=== PATIENT | female | born 1995 | race Caucasian/White ===

== ENCOUNTER 2019-09-02 17:36 | Emergency (ER) | payer BC ==
--- NOTE | 2019-09-02 18:19 | ER Document Report ---
HPI - HPI Patient complains to provider of: Dental pain Time Seen by Provider: 09/02/19 18:06 Onset: Last week Onset/Duration: Sudden, Persistent Quality of pain: Throbbing Severity: Severe Pain Level: 4 Context: This 24-year-old female presents emergency department with complaints of upper left-sided dental pain. Reports that she is from [place]. She had a root canal prior to her coming to [place] to visit. She reports that this past week she started hurting so she visited the dentist here. They placed her on amoxicillin and hydrocodone. She reports she still taking the amoxicillin but she is out of hydrocodone and hurting really bad. She reports she had 102 temperature today. Denies vomiting diarrhea. Associated Symptoms: None Exacerbated by: Denies Relieved by: Denies Similar symptoms previously: Yes Recently seen / treated by doctor: Yes - REPRODUCTIVE LMP: 08/28/19 Reproductive: DENIES: : Past Medical History - General Information source: Patient - Social History Smoking Status: Current Every Day Smoker Chew tobacco use (# tins/day): No Frequency of alcohol use: None Drug Abuse: None Family History: None Patient has suicidal ideation: No Patient has homicidal ideation: No - Past Medical History Cardiac Medical History: Reports: Other - Small vessel disease, tachycardia Surgical Hx: Negative Vertical Provider Document - CONSTITUTIONAL Agree With Documented VS: Yes Exam Limitations: No Limitations General Appearance: WD/WN, No Apparent Distress - INFECTION CONTROL TRAVEL OUTSIDE OF THE U.S. IN LAST 30 DAYS: No - HEENT HEENT: Atraumatic, Normocephalic Mouth Diagram: 1 - Patient complains of pain opens mouth wide good airway no erythema no swelling no pustule - NECK Neck: Supple. negative: Lymphadenopathy-Left, Lymphadenopathy-Right - RESPIRATORY Respiratory: No Respiratory Distress - CARDIOVASCULAR Cardiovascular: Regular Rate - MUSCULOSKELETAL/EXTREMETIES Musculoskeletal/Extremeties: VIANCA GORE - NEURO Level of Consciousness: Awake, Alert, Appropriate Motor/Sensory: No Motor Deficit - DERM Integumentary: Warm, Dry Course - Re-evaluation Re-evalutation: 09/02/19 19:22 24-year-old female presents emergency department with complaints of left upper dental pain. Reports she is visiting from [place]. Reports she had a root canal prior to leaving her again and started hurting here. She was seen by a dentist here in town on Wednesday he treated with amoxicillin and put her on Brandon. She reports she is still having pain. She is taken the Brandon and Tylenol on top of that. Reports she had fever earlier today. Labs unremarkable. Patient was instructed on positive nitrite. Patient was also instructed to stop taking amoxicillin start taking clindamycin. She was prescribed [place] dispense pack. She was also instructed to follow-up with the dentist on Wednesday. She verbalized understanding to all instructions. 09/02/19 18:30 09/02/19 18:30 MCV 91 fl (80-97) 09/02/19 18:30 MCH 30.6 pg (27.0-33.4) 09/02/19 18:30 MCHC 33.6 g/dL (32.0-36.0) 09/02/19 18:30 RDW 12.5 % (11.5-14.0) 09/02/19 18:30 Seg Neutrophils % 57.4 % (42-78) 09/02/19 18:30 Chloride 101 mmol/L (98-107) 09/02/19 18:30 Carbon Dioxide 30 mmol/L (22-30) 09/02/19 18:30 Anion Gap 13 (5-19) 09/02/19 18:30 Est GFR ( Amer) > 60 (>60) 09/02/19 18:30 Glucose 85 mg/dL (75-110) 09/02/19 18:30 Calcium 9.9 mg/dL (8.4-10.2) 09/02/19 18:30 Total Bilirubin 0.3 mg/dL (0.2-1.3) 09/02/19 18:30 AST 25 U/L (14-36) 09/02/19 18:30 Alkaline Phosphatase 66 U/L (38-126) 09/02/19 18:30 Total Protein 8.2 g/dL (6.3-8.2) 09/02/19 18:30 Albumin 4.8 g/dL (3.5-5.0) 09/02/19 18:30 Urine Color YELLOW 09/02/19 18:30 Urine Appearance TURBID 09/02/19 18:30 Urine pH 8.0 (5.0-9.0) 09/02/19 18:30 Ur Specific [place] 1.013 09/02/19 18:30 Urine Protein NEGATIVE mg/dL (NEGATIVE) 09/02/19 18:30 Urine Glucose (UA) NEGATIVE mg/dL (NEGATIVE) 09/02/19 18:30 Urine Ketones NEGATIVE mg/dL (NEGATIVE) 09/02/19 18:30 Urine Blood NEGATIVE (NEGATIVE) 09/02/19 18:30 Urine Nitrite POSITIVE (NEGATIVE) H 09/02/19 18:30 Ur Leukocyte Esterase NEGATIVE (NEGATIVE) 09/02/19 18:30 Urine WBC (Auto) 5 /HPF 09/02/19 18:30 - Laboratory Result Diagrams: 09/02/19 18:30 09/02/19 18:30 Discharge - Discharge Clinical Impression: Pain, dental Condition: Stable Disposition: HOME, SELF-CARE Instructions: Clindamycin ([facility]), Oral Narcotic Medication ([facility]), Toothache ([facility]) Additional Instructions: *You have been evaluated for dental pain *Take medications as prescribed *Follow up with the dentist Wednesday *Return to ED for worsening condition, changes, needs Prescriptions: Clindamycin HCl [Cleocin 300 mg Capsule] 300 mg PO BID #14 capsule
[2019-09-02 18:43] LABS: ABSOLUTE BASOPHILS # (AUTO) 0.1 10^3/uL (0.0-0.2); ABSOLUTE EOSINOPHILS # (AUTO) 0.2 10^3/uL (0.0-0.6); ABSOLUTE LYMPHOCYTES (AUTO) 2.6 10^3/uL (0.5-4.7); ABSOLUTE MONOCYTES (AUTO) 0.6 10^3/uL (0.1-1.4); ABSOLUTE NEUT (AUTO) 4.7 10^3/uL (1.7-8.2); BASOPHILS % (AUTO) 1.1 % (0-2); EOSINOPHILS % (AUTO) 2.6 % (0-6); HEMATOCRIT 43.8 % (36.0-47.0); HEMOGLOBIN 14.7 g/dL (12.0-15.5); LYMPHOCYTES % (AUTO) 31.6 % (13-45); MEAN CORPUSCULAR HEMOGLOBIN 30.6 pg (27.0-33.4); MEAN CORPUSCULAR HGB CONC 33.6 g/dL (32.0-36.0); MEAN CORPUSCULAR VOLUME 91 fl (80-97); MONOCYTES % (AUTO) 7.3 % (3-13); PLATELET COUNT 375 10^3/uL (150-450); RED BLOOD COUNT 4.81 10^6/uL (3.72-5.28); RED CELL DISTRIBUTION WIDTH 12.5 % (11.5-14.0); SEGMENTED NEUTROPHILS % (AUTO) 57.4 % (42-78); TOTAL CELLS COUNTED % (AUTO) 100 %; WHITE BLOOD COUNT 8.2 10^3/uL (4.0-10.5)
[2019-09-02 18:47] LABS: AMORPHOUS SEDIMENT,URINE 1+ /HPF; APPEARANCE,URINE TURBID; BILIRUBIN,URINE NEGATIVE (NEGATIVE); COLOR,URINE YELLOW; GLUCOSE, URINE NEGATIVE (NEGATIVE); KETONES,URINE NEGATIVE (NEGATIVE); LEUKOCYTE ESTERASE,URINE NEGATIVE (NEGATIVE); NITRITE,URINE POSITIVE (NEGATIVE); PROTEIN,URINE NEGATIVE (NEGATIVE); URINE SPECIFIC GRAVITY 1.013; UROBILINOGEN,URINE NEGATIVE mg/dL (<2.0)
[2019-09-02 19:05] LABS: ALBUMIN 4.8 g/dL (3.5-5.0); ALKALINE PHOSPHATASE 66 U/L (38-126); ANION GAP 13 (5-19); ASPARTATE AMINO TRANSFERASE 25 U/L (14-36); BILIRUBIN,DIRECT 0.2 mg/dL (0.0-0.4); BILIRUBIN,TOTAL 0.3 mg/dL (0.2-1.3); BLOOD UREA NITROGEN 14 mg/dL (7-20); CALCIUM 9.9 mg/dL (8.4-10.2); CARBON DIOXIDE 30 mmol/L (22-30); CHLORIDE 101 mmol/L (98-107); GLUCOSE 85 mg/dL (75-110); POTASSIUM 4.4 mmol/L (3.6-5.0); TOTAL PROTEIN 8.2 g/dL (6.3-8.2)
[2019-09-02] MEDS ORDERED: HYDROCODONE/ACETAMINOPHEN 5-325 MG (6 TAB/ER DISP) PO PRN (19:10)
[2019-09-02 19:42] VITALS: BP 138/72
== END 2019-09-02 19:43 | disposition home or self-care (01) ==
LOC: ER 17:36
DX: K08.89 Other specified disorders of teeth and supporting structures (principal); F17.200 Nicotine dependence, unspecified, uncomplicated; Z98.890 Other specified postprocedural states
CPT/HCPCS: 36415; 80053; 81001; 81025; 85025; 99282

== ENCOUNTER 2019-09-29 12:56 | Emergency (ER) | payer BC ==
[2019-09-29 13:01] VITALS: BP 127/72
[2019-09-29] MEDS ORDERED: LIDOCAINE 2% VISCOUS SOLN 15 ML UDCUP PO ONE (13:06)
--- NOTE | 2019-09-29 13:07 | ER Document Report ---
HPI - HPI Notes: Patient is a 24-year-old female presents complaining of left upper dental pain tooth #14 approximately and was told that there may be a fracture in the root area causing her pain by the dentist today. Patient states that the dentist told her to come here for some pain medicine to get her to Wednesday because she is going to be seeing an oral surgeon at that time. She is able to eat and drink, but has pain with doing so. She has not noticed any swelling or abscess. Denies any headache, fever, head injury, neck pain, URI, sore throat, chest pain, palpitations, syncope, cough, shortness of breath, wheeze, dyspnea, abdominal pain, nausea/vomiting/diarrhea, urinary retention, dysuria, hematuria, or rash. - ROS Systems Reviewed and Negative: Yes All other systems reviewed and negative - REPRODUCTIVE Reproductive: DENIES: : Past Medical History - Social History Smoking Status: Unknown if Ever Smoked Family History: None Vertical Provider Document - CONSTITUTIONAL Agree With Documented VS: Yes Notes: PHYSICAL EXAMINATION: GENERAL: Well-appearing, well-nourished and in no acute distress. HEAD: Atraumatic, normocephalic. EYES: Pupils equal round and reactive to light, extraocular movements intact, sclera anicteric, conjunctiva are normal. ENT: Nares patent and without discharge. oropharynx clear without exudates. No tonsilar hypertrophy or erythema. Moist mucous membranes. No sinus tenderness. Uvula midline. No palatine shift. No tongue protrusion. No respiratory compromise. Mouth: No obvious abscess or discharge noted. No facial swelling. + tenderness to tooth #14. NECK: Normal range of motion, supple without lymphadenopathy. No rigidity/meningismus. LUNGS: Breath sounds clear to auscultation bilaterally and equal. No wheezes rales or rhonchi. HEART: Regular rate and rhythm without murmurs, rubs, gallops. NEUROLOGICAL: Cranial nerves grossly intact. Normal speech, normal gait. Normal sensory, motor exams PSYCH: Normal mood, normal affect. SKIN: Warm, Dry, normal turgor, no rashes or lesions noted. - INFECTION CONTROL TRAVEL OUTSIDE OF THE U.S. IN LAST 30 DAYS: No Course - Re-evaluation Re-evalutation: 09/29/19 13:21 Patient is an afebrile, well-hydrated, 24-year-old female who presents to the ED with dental pain, suspect nerve root etiology versus infection. Vitals are acceptable. PE is otherwise unremarkable. No I&D, labs, or imaging warranted at this time based on H&P. Viscous lidocaine dispensed today. I will send her home with a prescription for penicillin. Low suspicion for any meningitis, sepsis, peritonsillar/pharyngeal abscess, respiratory compromise, Saeed's, temporal arteritis, or other emergent systemic condition at this time. Patient is aware this condition can change from initial presentation and he needs to monitor symptoms closely. Patient was bleeding for something for pain. I reviewed with patient that we do not treat chronic pain, but in light that she does have an appointment with an oral surgeon on Wednesday I will give her a [place] dispense pack. I thoroughly reviewed with the patient that this will be the l ast prescription given for her pain more specifically by myself, but preferably by the ED if she were to come back here for more pain medicine. I cannot make that decision for other providers, but reiterated that we will not be treating or giving out any more pain medicine for this specific issue as she is under the care of a dentist and now oral surgeon. Conservative measures otherwise for symptoms. Call to schedule an appointment with a dentist for further evaluation and management. Recheck with your PCM this week as well. Return to the ED with any worsening/concerning symptoms otherwise as reviewed in discharge. Patient is in agreement. - Vital Signs Vital signs: Temp Pulse Resp BP Pulse Ox 98.0 F 102 H 18 127/72 H 100 09/29/19 13:09/29/19 13:09/29/19 13:09/29/19 13:09/29/19 13:00 Discharge - Discharge Clinical Impression: Pain, dental Condition: Stable Disposition: HOME, SELF-CARE Instructions: Toothache ([facility]) Additional Instructions: [place] and floss twice daily Maintain fluid intake Take antibiotics as directed Mouthwash, salt water gargles, peroxide rinse as needed Tylenol/ibuprofen as needed Recheck with PCM this week Call today/tomorrow and schedule an appointment with your dentist for further evaluation Return to the ED with any worsening symptoms and/or development of fever, headache, facial swelling, swelling of lips/tongue/throat, trouble swallowing, drooling, hoarseness, neck pain/stiffness, chest pain, palpitations, syncope, shortness of breath, trouble breathing, abdominal pain, n/v/d, numbness /tingling, or other worsening symptoms that are concerning to you. Prescriptions: Penicillin V Potassium [Penicillin Vk 250 mg Tablet] 500 mg PO BID #40 tablet Forms: Elevated Blood Pressure Referrals: [facility] [Provider Group] - Follow up as needed
[2019-09-29] MEDS ORDERED: HYDROCODONE/ACETAMINOPHEN 5-325 MG (6 TAB/ER DISP) PO PRN (13:20)
== END 2019-09-29 14:25 | disposition home or self-care (01) ==
LOC: ER 12:56
DX: K08.89 Other specified disorders of teeth and supporting structures (principal)
CPT/HCPCS: 99282; J3490

== ENCOUNTER 2019-10-07 11:28 | Emergency (ER) | payer BC ==
--- NOTE | 2019-10-07 11:35 | ER Document Report ---
ED Medical Screen (RME) - General Chief Complaint: Flank Pain Stated Complaint: RIGHT SIDE FLANK PAIN Time Seen by Provider: 10/07/19 11:31 TRAVEL OUTSIDE OF THE U.S. IN LAST 30 DAYS: No - HPI Notes: 10/07/19 11:35 Patient is a 24-year-old female with a history of PID and ovarian cyst who presents complaining of right lower pelvic pain and scant vaginal discharge that is been present for the past several days. Patient states that this pain feels like it did when she had PID and ovarian cyst in the past. No other vaginal bleeding. No fever. I have treated and performed a rapid initial assessment of this patient. A comprehensive ED assessment and evaluation of the patient, analysis of test results and completion of medical decision making process will be conducted by additional ED providers. PHYSICAL EXAMINATION: GENERAL: Well-appearing, well-nourished and in no acute distress. A&Ox4. Answers questions appropriately. Abdomen: Limited exam in triage, but tenderness noted to right lower pelvic area. - Related Data Allergies/Adverse Reactions: codeine Allergy (Verified 09/29/19 13:08) morphine Allergy (Verified 09/29/19 13:08) tramadol Allergy (Verified 09/29/19 13:08) ibuprofen Adverse Reaction (Verified 09/29/19 13:08) Physical Exam - Vital signs Vitals: Temp Pulse Resp BP Pulse Ox 97.5 F 88 20 120/57 L 100 10/07/19 11:31 10/07/19 11:31 10/07/19 11:31 10/07/19 11:31 10/07/19 11:31 Course - Vital Signs Vital signs: Temp Pulse Resp BP Pulse Ox 97.5 F 88 20 120/57 L 100 10/07/19 11:31 10/07/19 11:31 10/07/19 11:31 10/07/19 11:31 10/07/19 11:31
[2019-10-07] MEDS ORDERED: ACETAMINOPHEN 325 MG TABLET PO ONE (11:36)
[2019-10-07] MEDS ORDERED: ONDANSETRON HCL INJ/PF 4 MG/2 ML SDV IV ONE ×2 (12:31→13:48)
--- NOTE | 2019-10-07 12:31 | ER Document Report ---
ED GI/ - General Chief Complaint: Abdominal Pain Stated Complaint: RIGHT SIDE FLANK PAIN Time Seen by Provider: 10/07/19 11:31 Notes: CHIEF COMPLAINT: Right lower quadrant pain over the last 3 days HPI: 24-year-old female with history of PID, ovarian cyst presenting to the emergency department complaining of an intermittent intensity but fairly constant discomfort in the right lower quadrant right pelvis region over the last 3 days progressively worsening. No fever. Slight nausea no vomiting. Patient states it does feel slightly similar to prior ovarian cysts. Now hurts to bend at the waist, hurts to walk. Denies vaginal bleeding, has had slight vaginal discharge. Patient states that she has been worked up as recently as 6 months ago and did not have any STDs. ROS: See HPI - all other systems were reviewed and are otherwise negative Constitutional: no fever or recent illness Eyes: no drainage, no blurred vision ENT: no runny nose, no sore throat Cardiovascular: no chest pain Resp: no SOB, no cough GI: no vomiting, no diarrhea, + nausea, + abdominal pain : no dysuria, + vaginal discharge Integumentary: no rash Allergy: no hives Musculoskeletal: no extremity pain or swelling Neurological: no numbness/tingling, no weakness MEDICATIONS: I agree with the patient medications as charted by the RN. ALLERGIES: I agree with the allergies as charted by the RN. PAST MEDICAL HISTORY/PAST SURGICAL HISTORY: Reviewed and agree as charted by RN. SOCIAL HISTORY: Reviewed and agree as charted by RN. FAMILY HISTORY: No significant familial comorbid conditions directly related to patient complaint EXAM: Reviewed vital signs as charted by RN. CONSTITUTIONAL: Alert and oriented and responds appropriately to questions. Well-appearing; well-nourished, mild distress secondary to discomfort HEAD: Normocephalic; atraumatic EYES: PERRL; Conjunctivae clear, sclerae non-icteric ENT: normal nose; no rhinorrhea; moist mucous membranes; pharynx without lesions noted NECK: Supple without meningismus; non-tender; no cervical lymphadenopathy, no masses CARD: RRR; no murmurs, no clicks, no rubs, no gallops; symmetric distal pulses RESP: Normal chest excursion without splinting or tachypnea; breath sounds clear and equal bilaterally; no wheezes, no rhonchi, no rales, ABD/GI: Normal bowel sounds; non-distended; soft, moderate tenderness in the right lower quadrant on palpation, positive Rovsing, no rebound, no guarding; no palpable organomegaly or masses : 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 External genitalia normal. No skin lesions noted. Pelvic Exam: No active bleeding. No purulent discharge. Cervix appears normal. + CMT. No lesions or masses. Uterus normal size and mildly tender. Right/Left adnexa normal size and moderately tender on the right. BACK: The back appears normal and is non-tender to palpation, there is no CVA tenderness EXT: Normal ROM in all joints; non-tender to palpation; no cyanosis, no e ffusions, no edema SKIN: Normal color for age and race; warm; dry; good turgor; no acute lesions noted NEURO: Moves all extremities equally; Motor and sensory function intact PSYCH: The patient's mood and manner are appropriate. Grooming and personal hygiene are appropriate. MDM: 24-year-old female with history of PID and ovarian cyst presenting for right lower quadrant pain constant over the last 3 days with varying intensity. She is moderately tender in the right lower quadrant on exam. Patient still has her appendix. Ultrasound has already been performed via triage protocols. Will evaluate for cyst or torsion. Will perform pelvic exam, screening labs pending. Differential would still include appendicitis of ultrasound does not show a definitive cause for her pain TRAVEL OUTSIDE OF THE U.S. IN LAST 30 DAYS: No - Related Data Allergies/Adverse Reactions: codeine Allergy (Verified 09/29/19 13:08) morphine Allergy (Verified 09/29/19 13:08) tramadol Allergy (Verified 09/29/19 13:08) ibuprofen Adverse Reaction (Verified 09/29/19 13:08) Past Medical History - Social History Smoking Status: Current Every Day Smoker Chew tobacco use (# tins/day): No Frequency of alcohol use: Occasional Drug Abuse: None Family History: None Patient has suicidal ideation: No Patient has homicidal ideation: No Past Surgical History: Reports: Hx Cholecystectomy, Hx Tonsillectomy - Adenoid removal Physical Exam - Vital signs Vitals: Temp Pulse Resp BP Pulse Ox 97.5 F 88 20 120/57 L 100 10/07/19 11:31 10/07/19 11:31 10/07/19 11:31 10/07/19 11:31 10/07/19 11:31 Course - Re-evaluation Re-evalutation: 10/07/19 16:29 I discussed evaluation results at length with the patient. Her lab work does not show acute emergent abnormalities other than a mild leukocytosis of 12.3. Urine did not show evidence of infection. Her ultrasound showed trace free fluid in the pelvis question a ruptured ovarian cyst. Patient had blood flow to the right ovary on ultrasound. Her CT imaging showed a normal appendix no other acute abnormalities. I discussed all of this with the patient at length. She has a history of similar types of pain in the past with cysts and PID presentation. We discussed possibility of PID, the need for her to have close [facility]OOK[facility]EE[facility] follow-up. We discussed torsion at length. Patient's pain is been fairly constant and not wavering while in the emergency department, if patient has worsening uncontrolled pain or vomiting at home she will return for reassessment. At this time it is less likely that patient has torsion given that she has blood flow to the ovary but patient is aware that if her discomfort worsens this could always be a possibility if it is intermittent in nature. She states she cannot take Tylenol products and is specifically asking for oxycodone without Tylenol 10/07/19 16:33 - Vital Signs Vital signs: Temp Pulse Resp BP Pulse Ox 97.5 F 88 20 120/57 L 100 10/07/19 11:31 10/07/19 11:31 10/07/19 11:31 10/07/19 11:31 10/07/19 11:31 - Laboratory Result Diagrams: 10/07/19 12:43 10/07/19 12:43 Laboratory results interpreted by me: 10/07/19 10/07/19 10/07/19 12:43 12:43 13:25 WBC 12.3 H Total Protein 8.3 H Urine Protein 30 H Urine Urobilinogen 2.0 H Leukocyte Esterase Rfl TRACE H Discharge - Discharge Clinical Impression: Abdominal pain, RLQ (right lower quadrant), PID (acute pelvic inflammatory disease) Condition: Stable Disposition: HOME, SELF-CARE Additional Instructions: Take the medications as prescribed, no driving if taking narcotics for pain. It is very important that you follow-up with S[facility] BOOKKEEPER for further management of this issue. Call on Wednesday to obtain appointment. If you have significant worsening or uncontrolled pain return to the emergency department for reevaluation as discussed Prescriptions: Doxycycline Hyclate 100 mg PO BID #28 capsule Metronidazole [Flagyl 500 mg Tablet] 500 mg PO BID #28 tablet Oxycodone HCl [Oxycontin Ir 5 Mg Tablet] 1 tab PO Q4H PRN #15 tablet PRN Reason: For Pain Ondansetron [Zofran Odt 4 mg Tablet] 1 - 2 tab PO Q4H PRN #15 tab.rapdis PRN Reason: For Nausea/Vomiting Referrals: DAVID GOINS MD [ACTIVE PROVISIONAL STAFF] - Follow up as needed
[2019-10-07] MEDS ORDERED: FENTANYL CITRATE INJ/PF 100 MCG/2 ML AMPUL IV ONE ×2 (12:32→15:04)
--- NOTE | 2019-10-07 12:44 | RADIOLOGY REPORT (SQ) ---
EXAM DESCRIPTION: U/S NON OB PEL TV W/DOPPLER COMPLETED DATE/TIME: 10/07/2019 12:19 pm REASON FOR STUDY: Rt pelvic pain COMPARISON: None. TECHNIQUE: Dynamic and static grayscale images acquired of the pelvis via transvaginal approach and recorded on PACS. Additional selected color Doppler and spectral images recorded. LIMITATIONS: None. FINDINGS: UTERUS: The uterus measures 9.3 x 4.7 x 5.7 cm. No focal myometrial mass was seen. ENDOMETRIAL STRIPE: The endometrium measures 1.6 cm in double wall thickness. There is a 4 mm hypoec hoic area at the endometrium. CERVIX: The cervix measures 3.4 cm in length. Trace amount of fluid is noted at the endocervical can al. RIGHT OVARY AND DOPPLER: The right ovary measures 4.2 x 1.5 x 1.6 cm. Small follicles are noted. Fl ow by Doppler was shown to the right ovary. LEFT OVARY AND DOPPLER: The left ovary measures 4.5 x 1.2 x 1.4 cm. Small follicles are noted. Flow by Doppler was shown to the left ovary. FREE FLUID: There is a small amount of free pelvic fluid. IMPRESSION: Thickened endometrium. 4 mm hypoechoic area at the endometrium, may represent a small c yst or fluid collection, please correlate with serum beta HCG to exclude an early gestational sac. T race amount of fluid at the endocervical canal. Small amount of free pelvic fluid. TECHNICAL DOCUMENTATION: JOB ID: [id number] OH-[id number] 2010 [employer]- All Rights Reserved Rev-02/04 Reading location - IP/workstation name: [email or web address]
[2019-10-07 13:05] LABS: ABSOLUTE LYMPHOCYTES (AUTO) 3.2 10^3/uL (0.5-4.7); ABSOLUTE NEUT (AUTO) 8.1 10^3/uL (1.7-8.2); BASOPHILS % (AUTO) 0.2 % (0-2); EOSINOPHILS % (AUTO) 0.3 % (0-6); HEMATOCRIT 46.4 % (36.0-47.0); HEMOGLOBIN 15.5 g/dL (12.0-15.5); LYMPHOCYTES % (AUTO) 25.8 % (13-45); MEAN CORPUSCULAR HEMOGLOBIN 30.6 pg (27.0-33.4); MEAN CORPUSCULAR HGB CONC 33.4 g/dL (32.0-36.0); MEAN CORPUSCULAR VOLUME 92 fl (80-97); MONOCYTES % (AUTO) 8.3 % (3-13); PLATELET COUNT 282 10^3/uL (150-450); RED BLOOD COUNT 5.06 10^6/uL (3.72-5.28); RED CELL DISTRIBUTION WIDTH 12.6 % (11.5-14.0); SEGMENTED NEUTROPHILS % (AUTO) 65.4 % (42-78); TOTAL CELLS COUNTED % (AUTO) 100 %; WHITE BLOOD COUNT 12.3 10^3/uL (4.0-10.5)
[2019-10-07 13:18] LABS: ALBUMIN 4.8 g/dL (3.5-5.0); ALKALINE PHOSPHATASE 69 U/L (38-126); ANION GAP 9 (5-19); ASPARTATE AMINO TRANSFERASE 16 U/L (14-36); BILIRUBIN,DIRECT 0.2 mg/dL (0.0-0.4); BILIRUBIN,TOTAL 0.5 mg/dL (0.2-1.3); BLOOD UREA NITROGEN 12 mg/dL (7-20); CALCIUM 10.1 mg/dL (8.4-10.2); CARBON DIOXIDE 28 mmol/L (22-30); CHLORIDE 103 mmol/L (98-107); GLUCOSE 78 mg/dL (75-110); POTASSIUM 3.7 mmol/L (3.6-5.0); TOTAL PROTEIN 8.3 g/dL (6.3-8.2)
[2019-10-07 13:39] LABS: RBCS (WET MOUNT) RARE RBCS SEEN; T.VAGINALIS (WET MOUNT) NO TRICHOMONAS SEEN; WBCS (WET MOUNT) RARE WBCS SEEN; YEAST (WET MOUNT) NO YEAST SEEN
[2019-10-07 14:01] LABS: AMORPHOUS SEDIMENT,URINE TRACE /HPF; APPEARANCE,URINE CLOUDY; BILIRUBIN,URINE NEGATIVE (NEGATIVE); COLOR,URINE AMBER; GLUCOSE, URINE NEGATIVE (NEGATIVE); KETONES,URINE NEGATIVE (NEGATIVE); PROTEIN,URINE 30 mg/dL (NEGATIVE); URINE SPECIFIC GRAVITY 1.026
[2019-10-07 15:05] LABS: CHLAM PCR NOT DETECTED (NOT DETECT)
--- NOTE | 2019-10-07 16:05 | RADIOLOGY REPORT (SQ) ---
EXAM DESCRIPTION: CT ABD/PELVIS WITH IV ORAL COMPLETED DATE/TIME: 10/07/2019 3:32 pm REASON FOR STUDY: RLQ pain eval for appy COMPARISON: None. TECHNIQUE: CT scan of the abdomen and pelvis performed with intravenous and oral contrast using phoebe donna scanning technique with dynamic intravenous contrast injection. Images reviewed with lung, soft t issue, and bone windows. Reconstructed coronal and sagittal MPR images reviewed. Delayed images for e valuation of the urinary system also acquired. All images stored on PACS. All CT scanners at this facility use dose modulation, iterative reconstruction, and/or weight based d osing when appropriate to reduce radiation dose to as low as reasonably achievable (ALARA). [facility]: Dose Right [facility]: CareDose [facility]: Dose Right [facility]: Teradose 4D [facility]: [facility] CONTRAST TYPE AND DOSE: contrast/concentration: Isovue 350.00 mg/ml; Total Contrast Delivered: 66.0 ml; Total Saline Delivered: 65.0 ml RENAL FUNCTION: GFR > 60. RADIATION DOSE: CT Rad equipment meets quality standard of care and radiation dose reduction techniq ues were employed. CTDIvol: 5.1 - 5.8 mGy. DLP: 619 mGy-cm. . LIMITATIONS: None. FINDINGS: LOWER CHEST: No significant findings. No nodules or infiltrates. LIVER: Normal size. No masses. No dilated ducts. SPLEEN: Normal size. No focal lesions. PANCREAS: No masses. No significant calcifications. No adjacent inflammation or peripancreatic fluid collections. Pancreatic duct not dilated. GALLBLADDER: Surgically absent. ADRENAL GLANDS: No significant masses or asymmetry. RIGHT KIDNEY AND URETER: No solid masses. No significant calcifications. No hydronephrosis or hyd roureter. LEFT KIDNEY AND URETER: No solid masses. No significant calcifications. No hydronephrosis or hydr oureter. AORTA AND VESSELS: No aneurysm. No dissection. Renal arteries, SMA, celiac without stenosis. RETROPERITONEUM: No retroperitoneal adenopathy, hemorrhage or masses. BOWEL AND PERITONEAL CAVITY: No obstruction. No visualized masses. No free fluid. No inflammatory ch anges or thickening of bowel wall. APPENDIX: Normal. PELVIS: No significant masses. Normal bladder. No free fluid. ABDOMINAL WALL: No masses. No hernias. BONES: No significant or acute findings. OTHER: No other significant finding. IMPRESSION: NO SIGNIFICANT OR ACUTE FINDINGS IN THE ABDOMEN OR PELVIS. TECHNICAL DOCUMENTATION: JOB ID: [id number] Quality ID # [id number]: Final reports with documentation of one or more dose reduction techniques (e.g., Au tomated exposure control, adjustment of the mA and/or kV according to patient size, use of iterative reconstruction technique) 2010 [employer]- All Rights Reserved Reading location - IP/workstation name: [email or web address]
[2019-10-07 16:55] VITALS: BP 110/66
== END 2019-10-07 16:56 | disposition home or self-care (01) ==
LOC: ER 11:28
DX: N73.0 Acute parametritis and pelvic cellulitis (principal); R10.31 Right lower quadrant pain; R11.0 Nausea; F17.200 Nicotine dependence, unspecified, uncomplicated; Z88.6 Allergy status to analgesic agent; Z90.49 Acquired absence of other specified parts of digestive tract
CPT/HCPCS: 96376; 99284; 96374; 96375; 36415; 87086; 87210; 85025; 81025; 87088; 80053; 81001; 87186; 87491; 87591; 76830; 93976; 74177; J3010; J2405

== ENCOUNTER 2019-10-09 12:36 | Emergency (ER) | payer BC ==
--- NOTE | 2019-10-09 13:13 | ER Document Report ---
ED Medical Screen (RME) - General Chief Complaint: Abdominal Pain Stated Complaint: ABDOMINAL PAIN/NAUSEA/VOMITING Time Seen by Provider: 10/09/19 13:10 TRAVEL OUTSIDE OF THE [place] IN LAST 30 DAYS: No - HPI Notes: 10/09/19 13:12 Patient is a 24-year-old female who returns after being evaluated couple days ago complaining of pain to the same area, but not able to keep anything down that she is having nausea and vomiting. Patient feels dehydrated. She had an unremarkable work-up at her last visit including CT scan and ultrasound as well as labs. No fever. I have treated and performed a rapid initial assessment of this patient. A comprehensive ED assessment and evaluation of the patient, analysis of test results and completion of medical decision making process will be conducted by additional ED providers. PHYSICAL EXAMINATION: GENERAL: Well-appearing, well-nourished and in no acute distress. A&Ox4. Answers questions appropriately. - Related Data Allergies/Adverse Reactions: codeine Allergy (Verified 09/29/19 13:08) morphine Allergy (Verified 09/29/19 13:08) tramadol Allergy (Verified 09/29/19 13:08) ibuprofen Adverse Reaction (Verified 09/29/19 13:08) Past Medical History Past Surgical History: Reports: Hx Cholecystectomy, Hx Tonsillectomy - Adenoid removal Physical Exam - Vital signs Vitals: Temp Pulse Resp BP Pulse Ox 98.0 F 141 H 18 119/71 99 10/09/19 12:40 10/09/19 12:40 10/09/19 12:40 10/09/19 12:40 10/09/19 12:40 Course - Vital Signs Vital signs: Temp Pulse Resp BP Pulse Ox 98.0 F 141 H 18 119/71 99 10/09/19 12:40 10/09/19 12:40 10/09/19 12:40 10/09/19 12:40 10/09/19 12:40
[2019-10-09] MEDS ORDERED: ONDANSETRON HCL INJ/PF 4 MG/2 ML SDV IV ONE ×3 (13:14→17:17)
[2019-10-09] MEDS ORDERED: ACETAMINOPHEN 325 MG TABLET PO ONE (13:15)
[2019-10-09 13:42] LABS: APPEARANCE,URINE CLOUDY; BILIRUBIN,URINE NEGATIVE (NEGATIVE); COLOR,URINE AMBER; GLUCOSE, URINE NEGATIVE (NEGATIVE); KETONES,URINE TRACE mg/dL (NEGATIVE); PROTEIN,URINE 30 mg/dL (NEGATIVE); URINE SPECIFIC GRAVITY 1.026
[2019-10-09] MEDS ORDERED: HYDROMORPHONE HCL INJ/PF 2 MG/ML AMPULE IV ONE ×3 (14:46→20:18)
[2019-10-09 14:58] LABS: ABSOLUTE BASOPHILS # (AUTO) 0.1 10^3/uL (0.0-0.2); ABSOLUTE EOSINOPHILS # (AUTO) 0.1 10^3/uL (0.0-0.6); ABSOLUTE LYMPHOCYTES (AUTO) 4.2 10^3/uL (0.5-4.7); ABSOLUTE MONOCYTES (AUTO) 2.1 10^3/uL (0.1-1.4); ABSOLUTE NEUT (AUTO) 10.4 10^3/uL (1.7-8.2); BASOPHILS % (AUTO) 0.8 % (0-2); EOSINOPHILS % (AUTO) 0.6 % (0-6); HEMATOCRIT 45.7 % (36.0-47.0); HEMOGLOBIN 15.9 g/dL (12.0-15.5); LYMPHOCYTES % (AUTO) 24.8 % (13-45); MEAN CORPUSCULAR HEMOGLOBIN 31.3 pg (27.0-33.4); MEAN CORPUSCULAR HGB CONC 34.8 g/dL (32.0-36.0); MEAN CORPUSCULAR VOLUME 90 fl (80-97); MONOCYTES % (AUTO) 12.2 % (3-13); RED BLOOD COUNT 5.09 10^6/uL (3.72-5.28); RED CELL DISTRIBUTION WIDTH 12.6 % (11.5-14.0); SEGMENTED NEUTROPHILS % (AUTO) 61.6 % (42-78); TOTAL CELLS COUNTED % (AUTO) 100 %
[2019-10-09] MEDS: NORMAL SALINE 1000 ML 1,000 ML IV PRN ×2 (15:01→16:34)
[2019-10-09 15:34] LABS: PLATELET COUNT 275 10^3/uL (150-450)
[2019-10-09 16:14] LABS: ALBUMIN 3.6 g/dL (3.5-5.0); ALKALINE PHOSPHATASE 51 U/L (38-126); ANION GAP 6 (5-19); ASPARTATE AMINO TRANSFERASE 13 U/L (14-36); BILIRUBIN,TOTAL 0.4 mg/dL (0.2-1.3); BLOOD UREA NITROGEN 13 mg/dL (7-20); CALCIUM 8.6 mg/dL (8.4-10.2); CARBON DIOXIDE 28 mmol/L (22-30); CHLORIDE 105 mmol/L (98-107); GLUCOSE 76 mg/dL (75-110); POTASSIUM 3.2 mmol/L (3.6-5.0); TOTAL PROTEIN 6.2 g/dL (6.3-8.2)
--- NOTE | 2019-10-09 19:41 | RADIOLOGY REPORT (SQ) ---
EXAM DESCRIPTION: CT ABD/PELVIS WITH IV ORAL COMPLETED DATE/TIME: 10/09/2019 7:23 pm REASON FOR STUDY: right lower quadrant pain COMPARISON: 10/07/2019 TECHNIQUE: CT scan of the abdomen and pelvis performed using helical scanning technique with dynamic intravenous contrast injection. Oral contrast. Images reviewed with lung, soft tissue, and bone win dows. Reconstructed coronal and sagittal MPR images reviewed. Delayed images for evaluation of the ur inary system also acquired. All images stored on PACS. All CT scanners at this facility use dose modulation, iterative reconstruction, and/or weight based d osing when appropriate to reduce radiation dose to as low as reasonably achievable (ALARA). [facility]: Dose Right [facility]: CareDose [facility]: Dose Right [facility]: Teradose 4D [facility]: [facility] CONTRAST TYPE AND DOSE: contrast/concentration: Isovue 350.00 mg/ml; Total Contrast Delivered: 66.0 ml; Total Saline Delivered: 57.0 ml RENAL FUNCTION: None required. The patient is less than 50 years old. RADIATION DOSE: CT Rad equipment meets quality standard of care and radiation dose reduction techniq ues were employed. CTDIvol: 5.1 - 6.2 mGy. DLP: 575 mGy-cm.. LIMITATIONS: None. FINDINGS: LOWER CHEST: No significant findings. No nodules or infiltrates. LIVER: Normal size. No masses. No dilated ducts. SPLEEN: Normal size. No focal lesions. PANCREAS: No masses. No significant calcifications. No adjacent inflammation or peripancreatic fluid collections. Pancreatic duct not dilated. GALLBLADDER: Surgically absent. ADRENAL GLANDS: No significant masses or asymmetry. RIGHT KIDNEY AND URETER: No solid masses. No significant calcifications. No hydronephrosis or hyd roureter. LEFT KIDNEY AND URETER: No solid masses. No significant calcifications. No hydronephrosis or hydr oureter. AORTA AND VESSELS: No aneurysm. No dissection. Renal arteries, SMA, celiac without stenosis. RETROPERITONEUM: No retroperitoneal adenopathy, hemorrhage or masses. BOWEL AND PERITONEAL CAVITY: No masses or inflammatory changes. Contrast is present in the colon all the way to the distal descending colon. APPENDIX: The appendix can be seen on several images and is normal. No pericecal inflammation is marilyn reciated. PELVIS: No mass. No free fluid. Normal bladder. ABDOMINAL WALL: No masses. No hernias. BONES: No significant or acute findings. OTHER: No other significant finding. IMPRESSION: No acute finding in the abdomen or pelvis. There is no evidence of appendicitis. TECHNICAL DOCUMENTATION: JOB ID: [id number] Quality ID # [id number]: Final reports with documentation of one or more dose reduction techniques (e.g., Au tomated exposure control, adjustment of the mA and/or kV according to patient size, use of iterative reconstruction technique) 2010 [employer]- All Rights Reserved Reading location - IP/workstation name: [email or web address]
[2019-10-09] MEDS ORDERED: CEFTRIAXONE 2 GM/D5W RTU 2 GM/50 ML RTUPB IV ONE (20:18)
--- NOTE | 2019-10-09 20:24 | ER Document Report ---
ED General - General Chief Complaint: Abdominal Pain Stated Complaint: ABDOMINAL PAIN/NAUSEA/VOMITING Time Seen by Provider: 10/09/19 13:10 Mode of Arrival: Ambulatory Information source: Patient TRAVEL OUTSIDE OF THE [place] IN LAST 30 DAYS: No - HPI Notes: Patient presents with abdominal pain and nausea and vomiting. Patient was here 2 days ago with similar complaints. At that time she had an unremarkable CT scan of the abdomen. She had an ultrasound which essentially was unremarkable except for a slightly increased endometrium and a questionable early . However patient had a negative test. She was diagnosed with PID and sent home with antibiotics. She states she has been unable to keep down any of the antibiotics. She complains mainly of lower abdominal pain and vomiting. The lower abdominal pain is worse on the right and is constant. It does radiate across the lower part of her abdomen. Is worse with movement and better with rest. She states she is not concerned about a cyclic transmitted disease and has had no vaginal discharge or previous history of pelvic inflammatory disease or sexually transmitted diseases. She states it does not burn or sting when she urinates. The pain is been sharp and severe. - Related Data Allergies/Adverse Reactions: codeine Allergy (Verified 09/29/19 13:08) morphine Allergy (Verified 09/29/19 13:08) tramadol Allergy (Verified 09/29/19 13:08) ibuprofen Adverse Reaction (Verified 09/29/19 13:08) Home Medications: Metroprolol Past Medical History - General Information source: Patient - Social History Smoking Status: Never Smoker Frequency of alcohol use: None Drug Abuse: None Family History: None Patient has suicidal ideation: No Patient has homicidal ideation: No Past Surgical History: Reports: Hx Cholecystectomy, Hx Tonsillectomy - Adenoid removal Review of Systems - Review of Systems Constitutional: Chills, Fever, Malaise Cardiovascular: denies: Chest pain, Palpitations Respiratory: denies: Cough, Short of breath Gastrointestinal: Abdominal pain, Vomiting -: Yes All other systems reviewed and negative Physical Exam - Vital signs Vitals: Temp Pulse Resp BP Pulse Ox 98.0 F 141 H 18 119/71 99 10/09/19 12:40 10/09/19 12:40 10/09/19 12:40 10/09/19 12:40 10/09/19 12:40 Interpretation: Tachycardic - General General appearance: Alert, Anxious In distress: Mild - HEENT Head: Normocephalic, Atraumatic Eyes: Normal Pupils: PERRL - Respiratory Respiratory status: No respiratory distress Chest status: Nontender Breath sounds: Normal Chest palpation: Normal - Cardiovascular Rhythm: Tachycardia Heart sounds: Normal auscultation Murmur: No - Abdominal Inspection: Normal Distension: No distension Bowel sounds: Normal Tenderness: Tender - Bilateral lower quadrants without rebound or guarding Organomegaly: No organomegaly - Genitourinary External exam: Normal Bimanuel exam: Other - Patient has suprapubic and right adnexal tenderness on bimanual exam. She had no discharge from the vaginal area on the glove. She had no palpable masses or abnormalities on the bimanual exam - Back Back: Normal, Nontender - Extremities General upper extremity: Normal inspection, Nontender, Normal color, Normal ROM, Normal temperature General lower extremity: Normal inspection, Nontender, Normal color, Normal ROM, Normal temperature, Normal weight bearing. No: Stalin's sign - Neurological Neuro grossly intact: Yes Cognition: Normal Orientation: AAOx4 Ruth Coma Scale Eye Opening: Spontaneous Ruth Coma Scale Verbal: Oriented Ruth Coma Scale Motor: Obeys Commands Ruth Coma Scale Total: 15 Speech: Normal Motor strength normal: LUE, RUE, LLE, RLE Sensory: Normal - Psychological Associated symptoms: Normal affect, Normal mood - Skin Skin Temperature: Warm Skin Moisture: Dry Skin Color: Normal Course - Re-evaluation Re-evalutation: 10/09/19 20:21 Patient arrives complaint of abdominal pain and vomiting. She is initially very tachycardic. Orthostatic vital signs were positive. After 2 L of fluid and pain medicine her heart rate is now 76. Her blood pressure has been normal throughout. Exam of the abdomen does not show peritoneal signs. Repeat CT scan shows no evidence of acute pathology in the abdomen. I am going to give her 1 dose of Rocephin IV so that she can have gut rest for the next 24 hours. She does have antibiotics at home and I have advised her to continue to take those for possible occult PID. Patient had a serum test this time that was negative. Patient's presentation is not consistent with a torsion. - Vital Signs Vital signs: Temp Pulse Resp BP Pulse Ox 98.7 F 97 19 119/64 98 10/09/19 19:51 10/09/19 19:51 10/09/19 19:51 10/09/19 19:51 10/09/19 19:51 - Laboratory Result Diagrams: 10/09/19 14:35 10/09/19 15:36 Laboratory results interpreted by me: 10/09/19 10/09/19 10/09/19 13:20 14:35 15:36 WBC 17.0 H Hgb 15.9 H Absolute Neuts (auto) 10.4 H Absolute Monos (auto) 2.1 H Potassium 3.2 L AST 13 L Total Protein 6.2 L Urine Protein 30 H Urine Ketones TRACE H Urine Nitrite (Reflex) POSITIVE H Urine Urobilinogen 2.0 H Leukocyte Esterase Rfl SMALL H - Diagnostic Test Radiology reviewed: Image reviewed, Reports reviewed Discharge - Discharge Clinical Impression: PID (acute pelvic inflammatory disease) Condition: Stable Disposition: HOME, SELF-CARE Instructions: Pelvic Inflammatory Disease ([facility]) Additional Instructions: Please call your family doctor soon as possible to arrange follow-up Prescriptions: Oxycodone HCl [Oxaydo] 7.5 mg PO Q8 3 Days #8 tablet.orl Promethazine HCl [Phenergan 25 mg Tablet] 1 tab PO Q6H PRN #15 tablet PRN Reason: Forms: Return to Work Referrals: LOI SAVAGE MD [ACTIVE STAFF] - Follow up in 3-5 days
[2019-10-09 20:57] VITALS: BP 114/63
== END 2019-10-09 20:57 | disposition home or self-care (01) ==
LOC: ER 12:36
DX: N73.0 Acute parametritis and pelvic cellulitis (principal); R10.9 Unspecified abdominal pain; Z88.6 Allergy status to analgesic agent; R11.2 Nausea with vomiting, unspecified; Z90.49 Acquired absence of other specified parts of digestive tract
CPT/HCPCS: 96376; 99284; 96361; 96375; 96365; 36415; 83690; 84703; 85025; 80053; 81001; 74177; J1170; J2405; J7030; J0696

== ENCOUNTER 2019-10-11 17:01 | Emergency (ER) | payer BC ==
[2019-10-11] MEDS ORDERED: ONDANSETRON HCL INJ/PF 4 MG/2 ML SDV IV ONE (17:16)
[2019-10-11] MEDS ORDERED: CEFTRIAXONE 1 GM/D5W RTU 1 GM/50 ML RTUPB IV ONE ×2 (17:17→20:16)
--- NOTE | 2019-10-11 17:18 | ER Document Report ---
ED Medical Screen (RME) - General Chief Complaint: Flank Pain Stated Complaint: FLANK PAIN Time Seen by Provider: 10/11/19 17:14 TRAVEL OUTSIDE OF THE [place] IN LAST 30 DAYS: No - HPI Notes: 10/11/19 17:16 Patient is a 24-year-old female back again for right abdomen pain, but states that she is now urinating blood and having right flank pain. Patient was noted to have a UTI over the past couple days that grew E. coli. Patient states that she has antibiotics at home but continues to vomit as well. I have treated and performed a rapid initial assessment of this patient. A comprehensive ED assessment and evaluation of the patient, analysis of test results and completion of medical decision making process will be conducted by additional ED providers. PHYSICAL EXAMINATION: GENERAL: Well-appearing, well-nourished and in no acute distress. A&Ox4. Answers questions appropriately. - Related Data Allergies/Adverse Reactions: codeine Allergy (Verified 10/11/19 17:13) morphine Allergy (Verified 10/11/19 17:13) tramadol Allergy (Verified 10/11/19 17:13) ibuprofen Adverse Reaction (Verified 10/11/19 17:13) Past Medical History Past Surgical History: Reports: Hx Cholecystectomy, Hx Tonsillectomy - Adenoid removal Physical Exam - Vital signs Vitals: Temp Pulse Resp BP Pulse Ox 98.1 F 142 H 20 140/89 H 99 10/11/19 17:05 10/11/19 17:05 10/11/19 17:05 10/11/19 17:05 10/11/19 17:05 Course - Vital Signs Vital signs: Temp Pulse Resp BP Pulse Ox 98.1 F 142 H 20 140/89 H 99 10/11/19 17:05 10/11/19 17:05 10/11/19 17:05 10/11/19 17:05 10/11/19 17:05
[2019-10-11] MEDS: NORMAL SALINE 1000 ML 1,000 ML IV PRN ×2 (17:58→19:01)
[2019-10-11 18:18] LABS: ABSOLUTE BASOPHILS # (AUTO) 0.1 10^3/uL (0.0-0.2); ABSOLUTE EOSINOPHILS # (AUTO) 0.2 10^3/uL (0.0-0.6); ABSOLUTE LYMPHOCYTES (AUTO) 2.6 10^3/uL (0.5-4.7); ABSOLUTE MONOCYTES (AUTO) 0.8 10^3/uL (0.1-1.4); ABSOLUTE NEUT (AUTO) 6.6 10^3/uL (1.7-8.2); BASOPHILS % (AUTO) 0.8 % (0-2); EOSINOPHILS % (AUTO) 1.8 % (0-6); HEMATOCRIT 48.3 % (36.0-47.0); HEMOGLOBIN 16.6 g/dL (12.0-15.5); LYMPHOCYTES % (AUTO) 25.6 % (13-45); MEAN CORPUSCULAR HEMOGLOBIN 31.2 pg (27.0-33.4); MEAN CORPUSCULAR HGB CONC 34.4 g/dL (32.0-36.0); MEAN CORPUSCULAR VOLUME 91 fl (80-97); MONOCYTES % (AUTO) 7.9 % (3-13); PLATELET COUNT 317 10^3/uL (150-450); RED BLOOD COUNT 5.32 10^6/uL (3.72-5.28); RED CELL DISTRIBUTION WIDTH 12.9 % (11.5-14.0); SEGMENTED NEUTROPHILS % (AUTO) 63.9 % (42-78); TOTAL CELLS COUNTED % (AUTO) 100 %; WHITE BLOOD COUNT 10.3 10^3/uL (4.0-10.5)
[2019-10-11] MEDS ORDERED: FENTANYL CITRATE INJ/PF 100 MCG/2 ML AMPUL IV ONE ×2 (18:35→22:36)
[2019-10-11 18:38] LABS: ALBUMIN 4.9 g/dL (3.5-5.0); ALKALINE PHOSPHATASE 64 U/L (38-126); ANION GAP 9 (5-19); ASPARTATE AMINO TRANSFERASE 20 U/L (14-36); BILIRUBIN,TOTAL 0.3 mg/dL (0.2-1.3); BLOOD UREA NITROGEN 16 mg/dL (7-20); CALCIUM 10.1 mg/dL (8.4-10.2); CARBON DIOXIDE 29 mmol/L (22-30); CHLORIDE 101 mmol/L (98-107); GLUCOSE 80 mg/dL (75-110); POTASSIUM 4.8 mmol/L (3.6-5.0); TOTAL PROTEIN 8.2 g/dL (6.3-8.2)
[2019-10-11 18:47] LABS: APPEARANCE,URINE SLIGHTLY-CLOUDY; BILIRUBIN,URINE NEGATIVE (NEGATIVE); COLOR,URINE STRAW; GLUCOSE, URINE NEGATIVE (NEGATIVE); KETONES,URINE NEGATIVE (NEGATIVE); LEUKOCYTE ESTERASE,URINE SMALL (NEGATIVE); NITRITE,URINE NEGATIVE (NEGATIVE); PROTEIN,URINE NEGATIVE (NEGATIVE); URINE SPECIFIC GRAVITY 1.009; UROBILINOGEN,URINE NEGATIVE mg/dL (<2.0)
--- NOTE | 2019-10-11 19:05 | RADIOLOGY REPORT (SQ) ---
EXAM DESCRIPTION: U/S RETROPERITON LTD COMPLETED DATE/TIME: 10/11/2019 6:52 pm REASON FOR STUDY: Rt flank pain COMPARISON: None. TECHNIQUE: Dynamic and static grayscale images acquired of the kidneys and bladder and recorded on P ACS. Additional selected color Doppler and spectral images recorded. LIMITATIONS: None. FINDINGS: RIGHT KIDNEY: Normal size. Normal echogenicity. No solid or suspicious masses. No h ydronephrosis. No calcifications. LEFT KIDNEY: Normal size. Normal echogenicity. No solid or suspicious masses. No hydronephrosi s. No calcifications. BLADDER: No masses. OTHER FINDINGS: No other significant finding. IMPRESSION: NORMAL RENAL AND BLADDER ULTRASOUND. TECHNICAL DOCUMENTATION: JOB ID: [id number] [employer]- All Rights Reserved Reading location - IP/workstation name: [email or web address]
[2019-10-11 19:06] LABS: URINE AMPHETAMINES SCREEN NEGATIVE; URINE BARBITURATES SCREEN NEGATIVE; URINE BENZODIAZEPINES SCREEN NEGATIVE; URINE COCAINE SCREEN NEGATIVE; URINE MARIJUANA (THC) SCREEN NEGATIVE; URINE METHADONE SCREEN NEGATIVE; URINE PHENCYCLIDINE SCREEN NEGATIVE
--- NOTE | 2019-10-11 20:21 | ER Document Report ---
ED GI/ - General Mode of Arrival: Ambulatory Information source: Patient TRAVEL OUTSIDE OF THE [place] IN LAST 30 DAYS: No - HPI Patient complains to provider of: Pelvic pain, Vomiting Onset: Last week Timing/Duration: Persistent, Worse Quality of pain: Sharp Pain Level: 5 Location: RLQ, Right flank Vaginal bleeding (Compared to normal period): None Associated symptoms: Diarrhea, Loss of appetite, Nausea, Urinary frequency, Vomiting. denies: Dysuria, Fever Exacerbated by: Denies Relieved by: Denies Similar symptoms previously: Yes Recently seen / treated by doctor: Yes - Related Data Home Medications: duloxetine <ED JOAQUIN - Last Filed: 10/11/19 20:31> <GRISELDA JORDAN - Last Filed: 10/11/19 22:40> - General Chief Complaint: Flank Pain Stated Complaint: FLANK PAIN Time Seen by Provider: 10/11/19 18:10 Primary Care Provider: [facility] [Provider Group] - Follow up in 1 week [facility] [Provider Group] - Follow up in 1 week Notes: Patient presents complaining of UTI symptoms for the past week. Patient states she has right lower pelvic pain that radiates to the right flank area. Patient reports hot and cold flashes. Patient states pain has been worse since yesterday and she has had numerous episodes of nausea and vomiting. Patient does not feel as though she is able to keep her antibiotics down. Patient does complain of urinary frequency as well. Patient has been seen here 2 previous times for this complaint. States she has a history of small vessel disease as well as tachycardia and has not been able to keep her metoprolol down which causes her heart rate to increase. (ED JOAQUIN) - Related Data Allergies/Adverse Reactions: codeine Allergy (Verified 10/11/19 17:13) morphine Allergy (Verified 10/11/19 17:13) tramadol Allergy (Verified 10/11/19 17:13) ibuprofen Adverse Reaction (Verified 10/11/19 17:13) Past Medical History - General Information source: Patient - Social History Smoking Status: Current Every Day Smoker Chew tobacco use (# tins/day): No Frequency of alcohol use: None Occupation: None Family History: None Patient has suicidal ideation: No Patient has homicidal ideation: No - Medical History Medical History: Other - Small vessel disease with tachycardia Past Surgical History: Reports: Hx Cholecystectomy, Hx Tonsillectomy - Adenoid removal <ED JOAQUIN - Last Filed: 10/11/19 20:31> Review of Systems - Review of Systems Constitutional: Recent illness - UTI. denies: Fever EENT: No symptoms reported Cardiovascular: No symptoms reported. denies: Dizziness, Lightheaded Respiratory: No symptoms reported. denies: Cough, Short of breath Gastrointestinal: Abdominal pain, Diarrhea, Nausea, Vomiting Genitourinary: Frequency, Flank pain. denies: Dysuria Female Genitourinary: No symptoms reported. denies: Vaginal discharge, Vaginal bleeding Musculoskeletal: Back pain Skin: No symptoms reported Hematologic/Lymphatic: No symptoms reported Neurological/Psychological: No symptoms reported <ED JOAQUIN - Last Filed: 10/11/19 20:31> Physical Exam - General General appearance: Appears well, Alert In distress: None - HEENT Head: Normocephalic, Atraumatic Eyes: Normal Conjunctiva: Normal Nasal: Normal Mouth/Lips: Normal Mucous membranes: Normal Neck: Normal, Supple. No: Lymphadenopathy - Respiratory Respiratory status: No respiratory distress Chest status: Nontender Breath sounds: Normal. No: Rales, Rhonchi, Wheezing Chest palpation: Normal - Cardiovascular Rhythm: Tachycardia Heart sounds: S1 appreciated, S2 appreciated - Abdominal Inspection: Normal Distension: No distension Bowel sounds: Normal Tenderness: Tender - Right lower quadrant Organomegaly: No organomegaly - Back Back: CVA tenderness - Right - Extremities General upper extremity: Normal inspection, Normal strength General lower extremity: Normal inspection, Normal strength - Neurological Neuro grossly intact: Yes Cognition: Normal Ruth Coma Scale Eye Opening: Spontaneous Ruth Coma Scale Verbal: Oriented [place] Coma Scale Motor: Obeys Commands Ruth Coma Scale Total: 15 - Psychological Associated symptoms: Normal affect, Normal mood - Skin Skin Temperature: Warm Skin Moisture: Dry Skin Color: Normal <ED JOAQUIN - Last Filed: 10/11/19 20:31> - Vital signs Vitals: Temp Pulse Resp BP Pulse Ox 98.1 F 142 H 20 140/89 H 99 10/11/19 17:05 10/11/19 17:05 10/11/19 17:05 10/11/19 17:05 10/11/19 17:05 Course - Laboratory Result Diagrams: 10/11/19 17:43 10/11/19 17:43 <ED JOAQUIN - Last Filed: 10/11/19 20:31> - Laboratory Result Diagrams: 10/11/19 17:43 10/11/19 17:43 <GRISELDA JORDAN - Last Filed: 10/11/19 22:40> - Re-evaluation Re-evalutation: 10/11/19 20:20 Patient with improved diagnostic evaluation as compared to previous ER visits for the same complaint. Patient has only received 1500 mL's of IV fluid althoug h tachycardia has resolved after receiving narcotics as well as this fluid bolus. Patient repeatedly asking for pain medication and wanting to be admitted. Dr. Ashley, who evaluated patient on her previous ER visit to bedside for examination. Recommends giving a second dose of IV Rocephin as well as finishing her current IV fluid bolus. Recommends repeating ultrasound to evaluate for ovarian torsion. 10/11/19 20:31 Report and handoff given to EMILY Freedman (ED JOAQUIN) 10/11/19 22:30 I had a long conversation with patient about her results and overall symptoms. She is telling me the pain is mainly in her lower abdomen, she has painful intercourse, terrible menstrual cycles, and intermittently very bad pain. She states she cannot be on control because of her small vessel disease. She does states she also had abnormal Pap smears and biopsies and she needs [facility] follow-up. [facility] follow-up provided, also discussed treatment options. Decis ion was made to proceed with Phenergan for nausea and Bentyl as needed for bowel pain, if this helps patient will follow-up with gastroenterology, if this does not patient will follow-up with [facility]. Patient states satisfaction and agreement with plan. She is well-appearing, vital signs unremarkable, work-up does not show any obvious emergent pathology, low suspicion of acute abdomen based on her repeat examinations recently and overall evaluation today. (GRISELDA JORDAN) - Vital Signs Vital signs: Temp Pulse Resp BP Pulse Ox 98.5 F 81 18 123/66 100 10/11/19 19:56 10/11/19 19:56 10/11/19 19:56 10/11/19 19:56 10/11/19 19:56 - Laboratory Laboratory results interpreted by me: 10/11/19 10/11/19 17:25 17:43 RBC 5.32 H Hgb 16.6 H Hct 48.3 H Ur Leukocyte Esterase SMALL H Discharge <ED JOAQUIN - Last Filed: 10/11/19 20:31> <GRISELDA JORDAN - Last Filed: 10/11/19 22:40> - Discharge Clinical Impression: Lower abdominal pain Vomiting Qualifiers: Vomiting type: unspecified Vomiting Intractability: non-intractable Nausea presence: with nausea Qualified Code(s): R11.2 - Nausea with vomiting, unspecified Condition: Stable Disposition: HOME, SELF-CARE Additional Instructions: Your evaluation does not show any obvious concerning or emergent abnormality at this time. Possibilities for your pain include endometriosis or a bowel source. I recommend both [facility] and gastroenterology follow-up. I also recommend the Bentyl as prescribed for pain. Take Phenergan if needed for nausea. Return if you worsen including fever, severe worsening pain, uncontrolled vomiting, or any other concerning or worsening symptoms. Prescriptions: Dicyclomine HCl [Bentyl 20 mg Tablet] 20 mg PO QID PRN #20 tablet PRN Reason: Promethazine HCl [Phenergan 25 mg Tablet] 25 mg PO Q6H PRN #15 tablet PRN Reason: Referrals: [facility] [Provider Group] - Follow up in 1 week [facility] [Provider Group] - Follow up in 1 week
--- NOTE | 2019-10-11 21:56 | RADIOLOGY REPORT (SQ) ---
EXAM: US PELVIS TRANSVAGINAL CLINICAL DATA: Right lower quadrant pain. TECHNICAL DATA: Transvaginal pelvic ultrasound was performed including color duplex analysis. FINDINGS: The uterus measures 9.3 x 6.3 x 5.5 cm. The endometrial complex measures 1.3 cm in thickness. The cervix is closed and measures about 2.8 cm in length. The right ovary measures 3.8 x 1.6 x 2.7 cm. The right ovary contains small follicles. Doppler imaging demonstrates normal arterial and venous flow. The left ovary measures 3.0 x 1.4 x 1.7 cm. The left ovary contains small follicles. Doppler imaging demonstrates normal arterial and venous flow. No free fluid is seen in the pelvis. IMPRESSION: No abnormalities are recognized sonographically. No free fluid or ovarian torsion is seen.
[2019-10-11 23:02] VITALS: BP 119/64
== END 2019-10-11 23:57 | disposition home or self-care (01) ==
LOC: ER 17:01
DX: R11.2 Nausea with vomiting, unspecified (principal); R10.2 Pelvic and perineal pain; R63.0 Anorexia; R19.7 Diarrhea, unspecified; R35.0 Frequency of micturition; N94.10 Unspecified dyspareunia; R00.0 Tachycardia, unspecified; F17.200 Nicotine dependence, unspecified, uncomplicated; Z90.49 Acquired absence of other specified parts of digestive tract; Z88.5 Allergy status to narcotic agent; Z88.6 Allergy status to analgesic agent
CPT/HCPCS: 96376; 99284; 96361; 96375; 96365; 36415; 87040; 87086; 83690; 85025; 80053; 81001; 80307; 76775; 76830; 93976; J3010; J2405; J7030; J0696

== ENCOUNTER 2019-11-17 12:04 | Emergency (ER) | payer BC ==
--- NOTE | 2019-11-17 12:46 | ER Document Report ---
ED Medical Screen (RME) - General Chief Complaint: OB Problem (<20wks) Stated Complaint: PROBLEM/POSSIBLE CYST Time Seen by Provider: 11/17/19 12:43 TRAVEL OUTSIDE OF THE [place] IN LAST 30 DAYS: No - HPI Notes: 11/17/19 12:45 Patient is a 24-year-old female who is approximately 4 weeks presents per the direction of [employer]PERATOR for possible admission for observation for having increased size on her right ovary, right pelvic pain, early . I have treated and performed a rapid initial assessment of this patient. A comprehensive ED assessment and evaluation of the patient, analysis of test results and completion of medical decision making process will be conducted by additional ED providers. PHYSICAL EXAMINATION: GENERAL: Well-appearing, well-nourished and in no acute distress. A&Ox4. Answers questions appropriately. Abdomen: Limited exam in triage, there is tenderness to right lower pelvic area. - Related Data Allergies/Adverse Reactions: codeine Allergy (Verified 11/17/19 12:43) morphine Allergy (Verified 11/17/19 12:43) tramadol Allergy (Verified 11/17/19 12:43) ibuprofen Adverse Reaction (Verified 11/17/19 12:43) Past Medical History Past Surgical History: Reports: Hx Cholecystectomy, Hx Tonsillectomy - Adenoid removal Physical Exam - Vital signs Vitals: Temp Pulse Resp BP Pulse Ox 98.2 F 91 18 139/83 H 98 11/17/19 12:11 11/17/19 12:11 11/17/19 12:11 11/17/19 12:11 11/17/19 12:11 Course - Vital Signs Vital signs: Temp Pulse Resp BP Pulse Ox 98.2 F 91 18 139/83 H 98 11/17/19 12:11 11/17/19 12:11 11/17/19 12:11 11/17/19 12:11 11/17/19 12:11
[2019-11-17] MEDS ORDERED: ACETAMINOPHEN 325 MG TABLET PO ONE (13:21)
[2019-11-17 13:26] LABS: APPEARANCE,URINE SLIGHTLY-CLOUDY; BILIRUBIN,URINE NEGATIVE (NEGATIVE); COLOR,URINE YELLOW; GLUCOSE, URINE NEGATIVE (NEGATIVE); KETONES,URINE NEGATIVE (NEGATIVE); PROTEIN,URINE NEGATIVE (NEGATIVE); UROBILINOGEN,URINE NEGATIVE mg/dL (<2.0)
--- NOTE | 2019-11-17 14:55 | RADIOLOGY REPORT (SQ) ---
EXAM DESCRIPTION: U/S OB TRANSVAG W/DOPPLER COMPLETED DATE/TIME: 11/17/2019 2:00 pm REASON FOR STUDY: early preg, rt pelvic pain TECHNIQUE: Transvaginal static and realtime grayscale images acquired of the pelvis. Additional edvin cted spectral and color Doppler images recorded. All images stored on PACs. bHCG: None available CLINICAL DATES: SID 07/26/2020, EGA 4 weeks 0 days LIMITATIONS: None. FINDINGS: UTERUS: No visualized intrauterine . Endometrial stripe is thickened measuring 2 .9 cm. RIGHT ADNEXA: Normal ovary with normal vascular flow. Ovary measures 4.0 x 3.2 x 1.8 cm. No adnexal free fluid. No adnexal masses. LEFT ADNEXA: Normal ovary with normal vascular flow. Ovary measures 2.4 x 1.6 x 1.3 cm. No adnexal free fluid. No adnexal masses. FREE FLUID: None. OTHER: No other significant finding. IMPRESSION: No visualized intra or extrauterine which is not unexpected for estimated gest ational age. However, ectopic cannot be excluded. Recommend follow-up ultrasound serial b eta hCGs to assess status. TECHNICAL DOCUMENTATION: JOB ID: [id number] 2010 [facility]- All Rights Reserved COMPARISON: None. 10/11/2019 Reading location - IP/workstation name: [email or web address]
[2019-11-17 14:59] LABS: ABSOLUTE EOSINOPHILS # (AUTO) 0.1 10^3/uL (0.0-0.6); ABSOLUTE LYMPHOCYTES (AUTO) 2.4 10^3/uL (0.5-4.7); ABSOLUTE MONOCYTES (AUTO) 0.6 10^3/uL (0.1-1.4); ABSOLUTE NEUT (AUTO) 5.5 10^3/uL (1.7-8.2); BASOPHILS % (AUTO) 0.5 % (0-2); EOSINOPHILS % (AUTO) 0.8 % (0-6); HEMATOCRIT 39.4 % (36.0-47.0); HEMOGLOBIN 13.7 g/dL (12.0-15.5); LYMPHOCYTES % (AUTO) 27.6 % (13-45); MEAN CORPUSCULAR HEMOGLOBIN 31.4 pg (27.0-33.4); MEAN CORPUSCULAR HGB CONC 34.7 g/dL (32.0-36.0); MEAN CORPUSCULAR VOLUME 91 fl (80-97); MONOCYTES % (AUTO) 7.3 % (3-13); PLATELET COUNT 258 10^3/uL (150-450); RED BLOOD COUNT 4.36 10^6/uL (3.72-5.28); RED CELL DISTRIBUTION WIDTH 12.7 % (11.5-14.0); SEGMENTED NEUTROPHILS % (AUTO) 63.8 % (42-78); TOTAL CELLS COUNTED % (AUTO) 100 %; WHITE BLOOD COUNT 8.6 10^3/uL (4.0-10.5)
[2019-11-17 15:21] LABS: ALBUMIN 4.7 g/dL (3.5-5.0); ALKALINE PHOSPHATASE 71 U/L (38-126); ANION GAP 12 (5-19); ASPARTATE AMINO TRANSFERASE 18 U/L (14-36); BILIRUBIN,DIRECT 0.2 mg/dL (0.0-0.4); BILIRUBIN,TOTAL 0.4 mg/dL (0.2-1.3); BLOOD UREA NITROGEN 13 mg/dL (7-20); CALCIUM 9.7 mg/dL (8.4-10.2); CARBON DIOXIDE 25 mmol/L (22-30); CHLORIDE 99 mmol/L (98-107); GLUCOSE 85 mg/dL (75-110); POTASSIUM 4.2 mmol/L (3.6-5.0); TOTAL PROTEIN 8.3 g/dL (6.3-8.2)
--- NOTE | 2019-11-17 15:37 | ER Document Report ---
ED General - General Chief Complaint: OB Problem (<20wks) Stated Complaint: PROBLEM/POSSIBLE CYST Time Seen by Provider: 11/17/19 12:43 Mode of Arrival: Ambulatory Information source: Patient Notes: This is a 24-year-old female presents emergency department with complaints of right-sided pelvic pain due to a right ovarian cyst per patient. She reports that she is . She reports she has been evaluated [facility] Dr[facility] Chad Corona several times this past week. She reports that on Wednesday she started having the pain. On Wednesday and she went to see Dr. Corona due to the pain. He did prescribe her Percocet. She reports he sent her to the emergency department today to be evaluated and to be admitted for possible ectopic . She denies fever or diarrhea. Denies pain with void. Denies vaginal discharge. She reports she has vomited due to the pain. Patient reports that she is taking the max dose of her Tylenol today. Patient is . TRAVEL OUTSIDE OF THE [place] IN LAST 30 DAYS: No - HPI Onset: Other Onset/Duration: Persistent Quality of pain: Achy Severity: Severe Associated symptoms: Vomiting - from pain Exacerbated by: Denies Relieved by: Denies - Related Data Allergies/Adverse Reactions: codeine Allergy (Verified 11/17/19 12:43) morphine Allergy (Verified 11/17/19 12:43) tramadol Allergy (Verified 11/17/19 12:43) ibuprofen Adverse Reaction (Verified 11/17/19 12:43) Past Medical History - General Information source: Patient Last Menstrual Period: 4 weeks ago - Social History Smoking Status: Never Smoker Chew tobacco use (# tins/day): No Frequency of alcohol use: None Drug Abuse: None Lives with: Family Family History: None Patient has suicidal ideation: No Patient has homicidal ideation: No - Medical History Medical History: Other - Small vessel disease Renal/ Medical History: Reports: Hx Ovarian Cysts Malignancy Medical History: Reports: Other Past Surgical History: Reports: Hx Adenoidectomy, Hx Cholecystectomy, Hx Ton sillectomy - Adenoid removal Review of Systems - Review of Systems Notes: Review HPI for review of systems., All other systems negative Physical Exam - Vital signs Vitals: Temp Pulse Resp BP Pulse Ox 98.2 F 91 18 139/83 H 98 11/17/19 12:11 11/17/19 12:11 11/17/19 12:11 11/17/19 12:11 11/17/19 12:11 - Notes Notes: PHYSICAL EXAMINATION: GENERAL: Well-appearing and in no acute distress HEAD: Atraumatic, normocephalic. EYES: extraocular movements intact, sclera anicteric, conjunctiva are normal. ENT: nares patent, . Moist mucous membranes. NECK: Normal range of motion, supple without lymphadenopathy LUNGS: Respiratory rate even unlabored HEART: Regular rate ABDOMEN: Soft, complains of right lower pelvic tenderness EXTREMITIES: Normal range of motion NEUROLOGICAL: Cranial nerves grossly intact. PSYCH: Normal mood, normal affect. SKIN: Warm, Dry, normal turgor, Course - Re-evaluation Re-evalutation: 11/17/19 15:36 Dr. florian HOSPITAL SECURITY OFFICER was consulted due to patient's complaints of pain. Labs unremarkable hCG 81.73. No IUP visualized on TVUS. Patient reports she is taking the max dose of Tylenol. She requests something stronger without tylenol. She does report that Dr. Corona gave her Percocet. She is also informed me that she is allergic to morphine codeine tramadol ibuprofen. Dr. florian did come and talk with patient for quite a while. Patient drove herself here. Dr. florian and patient decided that she would be discharged home with a prescription for Phenergan, no further narcotics. After Dr. florian left patient reports she already has a prescription for Phenergan would like somethin g stronger. I instructed her that she must follow-up with HOSPITAL SECURITY OFFICER for further pain management. Transvaginal US 11/17/19 12:47 IMPRESSION: No visualized intra or extrauterine which is not unexpected for estimated gestational age. However, ectopic cannot be excluded. Recommend follow-up ultrasound serial beta hCGs to assess status. Laboratory 11/17/19 11/17/19 11/17/19 12:52 14:48 14:48 WBC 8.6 RBC 4.36 Hgb 13.7 Hct 39.4 MCV 91 MCH 31.4 MCHC 34.7 RDW 12.7 Plt Count 258 Lymph % (Auto) 27.6 Ferry % (Auto) 7.3 Eos % (Auto) 0.8 Baso % (Auto) 0.5 Absolute Neuts (auto) 5.5 Absolute Lymphs (auto) 2.4 Absolute Monos (auto) 0.6 Absolute Eos (auto) 0.1 Absolute Basos (auto) 0.0 Seg Neutrophils % 63.8 Sodium 136.4 L Potassium 4.2 Chloride 99 Carbon Dioxide 25 Anion Gap 12 BUN 13 Creatinine 0.53 Est GFR ( Amer) > 60 Est GFR (MDRD) Non-Af > 60 Glucose 85 Calcium 9.7 Total Bilirubin 0.4 Direct Bilirubin 0.2 Neonat Total Bilirubin Not Reportable Neonat Direct Bilirubin Not Reportable Neonat Indirect Bili Not Reportable AST 18 ALT 15 Alkaline Phosphatase 71 Total Protein 8.3 H Albumin 4.7 Beta HCG, Quant 81.73 H Total Beta HCG POSITIVE Urine Color YELLOW Urine Appearance SLIGHTLY-CLOUDY Urine pH 5.0 Ur Specific Parker 1.020 Urine Protein NEGATIVE Urine Glucose (UA) NEGATIVE Urine Ketones NEGATIVE Urine Blood NEGATIVE Urine Nitrite (Reflex) NEGATIVE Urine Bilirubin NEGATIVE Urine Urobilinogen NEGATIVE Leukocyte Esterase Rfl NEGATIVE Urine RBC (Auto) 1 Urine Bacteria (Auto) TRACE Urine WBC (Reflex) 2 Squamous Epi Cells Auto 10 Urine Mucus (Auto) RARE Urine Ascorbic Acid NEGATIVE 11/17/19 17:33 - Vital Signs Vital signs: Temp Pulse Resp BP Pulse Ox 98.0 F 86 18 114/62 99 11/17/19 16:38 11/17/19 16:38 11/17/19 16:38 11/17/19 16:38 11/17/19 16:38 - Laboratory Result Diagrams: 11/17/19 14:48 11/17/19 14:48 Laboratory results interpreted by me: 11/17/19 14:48 Sodium 136.4 L Total Protein 8.3 H Beta HCG, Quant 81.73 H - Diagnostic Test Radiology reviewed: Reports reviewed - Consults dr florian Time consulted: 15:36 Reason for consultation: 11/17/19 16:31 RIGHT PELVIC PAIN, C/O POSSIBLE ECTOPIC Consulted provider: will come to ER - dr florian to the emergency department at 1630. Discharge - Discharge Clinical Impression: Condition: Stable Disposition: HOME, SELF-CARE Instructions: Antinausea Medication ([facility]), Ectopic Precaution ([facility]), ([facility]) Additional Instructions: *You have been evaluated for pelvic pain, *The US was inconclusive, no intrauterine was visualized. This may be because you are barely or you may have an ectopic *Follow up Tuesday November 19, 2019 for a repeat BHCG *Take medication as prescribed *Follow up with [facility] Wednesday November 20, 2019, call for an appointment *Return to ED for worsening condition, changes, needs, vaginal bleeding, worsening pain Prescriptions: Promethazine HCl [Phenergan 25 mg Tablet] 25 - 50 mg PO ASDIR PRN #12 tablet PRN Reason: Forms: Elevated Blood Pressure, Follow-Up Laboratory Testing
[2019-11-17 16:48] VITALS: BP 114/62
== END 2019-11-17 16:49 | disposition home or self-care (01) ==
LOC: ER 12:04
DX: O26.91 Pregnancy related conditions, unspecified, first trimester (principal); R10.31 Right lower quadrant pain; Z3A.01 Less than 8 weeks gestation of pregnancy; Z88.6 Allergy status to analgesic agent; Z90.49 Acquired absence of other specified parts of digestive tract
CPT/HCPCS: 36415; 76817; 80053; 81001; 84702; 85025; 93976; 99284

== ENCOUNTER 2019-11-17 22:51 | Emergency (ER) | payer BC ==
[2019-11-18] MEDS ORDERED: ACETAMINOPHEN 325 MG TABLET PO ONE ×2 (03:27→05:24)
[2019-11-18 05:25] LABS: ABSOLUTE BASOPHILS # (AUTO) 0.1 10^3/uL (0.0-0.2); ABSOLUTE EOSINOPHILS # (AUTO) 0.1 10^3/uL (0.0-0.6); ABSOLUTE LYMPHOCYTES (AUTO) 2.5 10^3/uL (0.5-4.7); ABSOLUTE MONOCYTES (AUTO) 0.7 10^3/uL (0.1-1.4); ABSOLUTE NEUT (AUTO) 3.2 10^3/uL (1.7-8.2); EOSINOPHILS % (AUTO) 1.3 % (0-6); HEMATOCRIT 38.7 % (36.0-47.0); HEMOGLOBIN 13.1 g/dL (12.0-15.5); LYMPHOCYTES % (AUTO) 38.6 % (13-45); MEAN CORPUSCULAR HEMOGLOBIN 30.9 pg (27.0-33.4); MEAN CORPUSCULAR VOLUME 91 fl (80-97); MONOCYTES % (AUTO) 10.2 % (3-13); PLATELET COUNT 255 10^3/uL (150-450); RED BLOOD COUNT 4.26 10^6/uL (3.72-5.28); RED CELL DISTRIBUTION WIDTH 12.9 % (11.5-14.0); SEGMENTED NEUTROPHILS % (AUTO) 48.9 % (42-78); TOTAL CELLS COUNTED % (AUTO) 100 %; WHITE BLOOD COUNT 6.6 10^3/uL (4.0-10.5)
--- NOTE | 2019-11-18 05:29 | ER Document Report ---
ED GI/ - General Chief Complaint: Vaginal Bleeding Stated Complaint: ABDOMINAL BLEEDING,VAGINAL BLEEDING Time Seen by Provider: 11/18/19 05:15 Primary Care Provider: [facility] [Provider Group] - 11/20/19 Mode of Arrival: Ambulatory Information source: Patient Notes: Patient presents stating that she is 4 weeks . Patient states she is had mild cramping to the lower pelvic area for the past 5 days although the pain became severe today causing her to have difficulty with walking. Patient states that she has had some blood in her vaginal discharge today. Patient does complain of some urinary frequency symptoms as well. TRAVEL OUTSIDE OF THE [place] IN LAST 30 DAYS: No - HPI Patient complains to provider of: Pelvic pain, . No: Other Onset: Other - 5 days Timing/Duration: Worse Quality of pain: Sharp Pain Level: 5 Location: Pelvis Vaginal bleeding (Compared to normal period): Spotting Menstrual period history: Sexual history: Active Associated symptoms: Vaginal discharge. denies: Urinary hesitancy, Urinary frequency, Urinary retention Exacerbated by: Denies Relieved by: Denies Similar symptoms previously: Yes Recently seen / treated by doctor: Yes - Related Data Allergies/Adverse Reactions: codeine Allergy (Verified 11/17/19 12:43) morphine Allergy (Verified 11/17/19 12:43) tramadol Allergy (Verified 11/17/19 12:43) ibuprofen Adverse Reaction (Verified 11/17/19 12:43) Past Medical History - General Information source: Patient - Social History Smoking Status: Never Smoker Frequency of alcohol use: None Drug Abuse: None Lives with: Family Family History: None Patient has suicidal ideation: No Patient has homicidal ideation: No - Medical History Medical History: Other - Small vessel disease Renal/ Medical History: Reports: Hx Ovarian Cysts Past Surgical History: Reports: Hx Adenoidectomy, Hx Cholecystectomy, Hx Tonsillectomy - Adenoid removal Review of Systems - Review of Systems Constitutional: No symptoms reported. denies: Fever EENT: No symptoms reported Cardiovascular: No symptoms reported. denies: Dizziness, Lightheaded Respiratory: No symptoms reported Gastrointestinal: Abdominal pain. denies: Diarrhea, Nausea, Vomiting Genitourinary: No symptoms reported. denies: Dysuria Female Genitourinary: , Vaginal discharge, Vaginal bleeding Musculoskeletal: Back pain Skin: No symptoms reported Hematologic/Lymphatic: No symptoms reported Neurological/Psychological: No symptoms reported Physical Exam - Vital signs Vitals: Temp Pulse Resp BP Pulse Ox 98.2 F 103 H 18 125/76 99 11/17/19 23:12 11/17/19 23:12 11/17/19 23:12 11/17/19 23:12 11/17/19 23:12 - General General appearance: Appears well, Alert In distress: None - HEENT Head: Normocephalic, Atraumatic Eyes: Normal Conjunctiva: Normal Nasal: Normal Mouth/Lips: Normal Mucous membranes: Normal Neck: Normal, Supple. No: Lymphadenopathy - Respiratory Respiratory status: No respiratory distress Chest status: Nontender Breath sounds: Normal. No: Rales, Rhonchi, Stridor, Wheezing Chest palpation: Normal - Cardiovascular Rhythm: Regular Heart sounds: S1 appreciated, S2 appreciated Murmur: No - Abdominal Inspection: Normal Distension: No distension Bowel sounds: Normal Tenderness: Tender - Right lower quadrant, right lower pelvic, Guarding Organomegaly: No organomegaly - Genitourinary External exam: Normal Speculum exam: Cervix closed, Vaginal discharge Vaginal bleeding: None Bimanuel exam: Adnexal tenderness - right Notes: PCT as standby - Back Back: CVA tenderness - Right - Extremities General upper extremity: Normal inspection, Normal ROM General lower extremity: Normal inspection, Normal ROM - Neurological Neuro grossly intact: Yes Cognition: Normal Lenoir Coma Scale Eye Opening: Spontaneous Ruth Coma Scale Verbal: Oriented Lenoir Coma Scale Motor: Obeys Commands Lenoir Coma Scale Total: 15 - Psychological Associated symptoms: Normal affect, Normal mood - Skin Skin Temperature: Warm Skin Moisture: Dry Skin Color: Normal Course - Re-evaluation Re-evalutation: 11/18/19 08:04 Patient's ultrasound reviewed, patient does have ovarian cyst noted on the right side, no intrauterine noted on ultrasound although patient's quantitative hCG test is too low to expect an identifiable IUP at this time. Patient with right adnexal tenderness. No concern for torsion at this time. Patient has been seen by her HEAT SEALING MACHINE OPERATOR for this problem and was prescribed narcotic medication for this pain. Patient without any fever or leukocytosis. Patient has had pain symptoms for the past 5 days. No concern for appendicitis at this time. Consulted with Dr Johnson regarding pt presentation and diagnostic e valuation. Agrees with plan for discharge and outpatient follow-up with supervisor grounds for a recheck. - Vital Signs Vital signs: Temp Pulse Resp BP Pulse Ox 98.1 F 98 18 127/65 H 99 11/18/19 07:00 11/18/19 07:00 11/18/19 07:00 11/18/19 07:00 11/18/19 07:00 - Laboratory Result Diagrams: 11/18/19 05:10 Laboratory results interpreted by me: 11/18/19 05:10 Beta HCG, Quant 89.21 H - Diagnostic Test Radiology reviewed: Reports reviewed Discharge - Discharge Clinical Impression: Pelvic pain affecting Qualifiers: Trimester: first trimester Qualified Code(s): O26.891 - Other specified p regnancy related conditions, first trimester Condition: Stable Disposition: HOME, SELF-CARE Instructions: Ectopic Precaution ([facility]) Additional Instructions: Return immediately for any new or worsening symptoms: Fever, vomiting, worsening pain, or any new concerning symptoms Followup with your HEAT SEALING MACHINE OPERATOR provider on Wednesday for a repeat examination. Your HEAT SEALING MACHINE OPERATOR will need to repeat your blood tests and ultrasound to further evaluate your status Referrals: [facility] [Provider Group] - 11/20/19
[2019-11-18 06:17] LABS: APPEARANCE,URINE SLIGHTLY-CLOUDY; BILIRUBIN,URINE NEGATIVE (NEGATIVE); COLOR,URINE YELLOW; GLUCOSE, URINE NEGATIVE (NEGATIVE); KETONES,URINE NEGATIVE (NEGATIVE); LEUKOCYTE ESTERASE,URINE NEGATIVE (NEGATIVE); NITRITE,URINE NEGATIVE (NEGATIVE); PROTEIN,URINE NEGATIVE (NEGATIVE); URINE SPECIFIC GRAVITY 1.016; UROBILINOGEN,URINE NEGATIVE mg/dL (<2.0)
[2019-11-18 06:17] LABS: BACTERIA (WET MOUNT) 3+ BACTERIA SEEN; EPITHELIALS (WET MOUNT) 3+ EPITHELIALS SEEN; T.VAGINALIS (WET MOUNT) NO TRICHOMONAS SEEN; WBCS (WET MOUNT) 1+ WBCS SEEN; YEAST (WET MOUNT) NO YEAST SEEN
--- NOTE | 2019-11-18 07:12 | RADIOLOGY REPORT (SQ) ---
EXAM: US Abdomen Limited, Appendix EXAM DATE/TIME: 11/18/2019 6:13 AM CLINICAL HISTORY: The patient is 24 years old and is Female; RLQ pain, eval appendix TECHNIQUE: Real-time ultrasound of the right lower quadrant with image documentation. COMPARISON: No relevant prior studies available. FINDINGS: APPENDIX: The appendix was not definitively visualized. FREE FLUID: No free fluid or focal fluid collections appreciated in the right lower quadrant. IMPRESSION: The appendix was not visualized.
--- NOTE | 2019-11-18 07:31 | RADIOLOGY REPORT (SQ) ---
EXAM: US , Transvaginal EXAM DATE/TIME: 11/18/2019 6:23 AM CLINICAL HISTORY: The patient is 24 years old and is Female; RLQ pain , beta-hCG level is 89.2 TECHNIQUE: Real-time transvaginal obstetrical ultrasound of the maternal pelvis and a first trimester with image documentation. Transvaginal imaging was used for better evaluation of the fetus and adnexa. COMPARISON: OB ultrasound from 11/17/2019 FINDINGS: GESTATION: No obvious intrauterine . UTERUS/CERVIX: The uterus measures 10.0 x 4.5 x 7.2 cm. The endometrial stripe measures 2.5 cm. The cervix measures 3.4 cm in length and is unremarkable. No myometrial mass. OVARIES: The right ovary measures 2.8 x 2.5 x 2.0 cm. There is a hypoechoic area in the right ovary which demonstrates peripheral Doppler flow. This is most compatible with a corpus luteum and measures 1.9 x 1.5 x 1.6 cm. A similar appearance is seen on the prior exam. A smaller anechoic area measuring 1.0 x 0.4 x 0.7 cm is also presumably within the right ovary and may represent a prominent follicle. The left ovary measures 2.7 x 1.3 x 1.3 cm and is normal in appearance. Blood flow is demonstrated in bilateral ovaries. FREE FLUID: Trace free fluid in the pelvis. IMPRESSION: 1. No intrauterine gestation identified. The differential includes very early intrauterine , spontaneous , as well as ectopic . Follow-up ultrasound and correlation with serial beta HCG levels is recommended for further evaluation. 2. Hypoechoic area in the right ovary, most compatible with a corpus luteum. An adjacent anechoic area is also presumably within the right ovary and may represent a prominent follicle. However, ectopic cannot be completely excluded as above, and close interval follow-up is recommended. 3. Thickened endometrial stripe, similar to the prior study. 4. Trace free fluid in the pelvis.
[2019-11-18 08:07] LABS: CHLAM PCR NOT DETECTED (NOT DETECT)
[2019-11-18 08:45] VITALS: BP 128/60
== END 2019-11-18 08:12 | disposition home or self-care (01) ==
LOC: ER 22:51
DX: O20.9 Hemorrhage in early pregnancy, unspecified (principal); O26.891 Other specified pregnancy related conditions, first trimester; R10.2 Pelvic and perineal pain; R10.31 Right lower quadrant pain; Z3A.01 Less than 8 weeks gestation of pregnancy; Z88.6 Allergy status to analgesic agent; Z90.49 Acquired absence of other specified parts of digestive tract
CPT/HCPCS: 36415; 76705; 76817; 81001; 84702; 85025; 86900; 86901; 87210; 87491; 87591; 99284

== ENCOUNTER 2019-11-23 12:07 | Day surgery (SDC) | payer BC ==
[~2019-11-23 12:07] MED LIST: GLYCOPYRROLATE 1 MG/5 ML VIAL ONE; NEOSTIGMINE METHYLSULFATE 10 MG/10 ML VIAL ONE
[2019-11-23] MEDS ORDERED: METHYLENE BLUE 50 MG/10 ML AMPULE ONE (12:40)
[2019-11-23] MEDS ORDERED: BUPIVACAINE HCL 0.25 % INJ/PF (2.5 MG/1 ML) 30 ML VIAL ONE (12:40)
[2019-11-23] MEDS ORDERED: LIDOCAINE 2% INJ-PF (20 MG/ML) 10 ML AMPUL ONE (12:42)
[2019-11-23] MEDS ORDERED: DEXAMETHASONE SOD PHOSPHATE INJ 4 MG/1 ML VIAL ONE (12:43)
[2019-11-23] MEDS ORDERED: PROPOFOL INJ 200 MG/20 ML VIAL IV ONE (12:43)
[2019-11-23] MEDS ORDERED: DEXMEDETOMIDINE INJ 80 MCG/20 ML VIAL IV ONE (12:43)
[2019-11-23] MEDS ORDERED: MIDAZOLAM 2 MG/2 ML INJ ONE ×2 (12:43→12:58)
[2019-11-23] MEDS ORDERED: ONDANSETRON HCL INJ/PF 4 MG/2 ML SDV ONE (12:43)
[2019-11-23] MEDS ORDERED: FENTANYL CITRATE INJ/PF 100 MCG/2 ML AMPUL ONE ×2 (12:43→14:01)
[2019-11-23 12:50] LABS: HEMATOCRIT 38.3 % (36.0-47.0); HEMOGLOBIN 13.1 g/dL (12.0-15.5); MEAN CORPUSCULAR HGB CONC 34.1 g/dL (32.0-36.0); MEAN CORPUSCULAR VOLUME 91 fl (80-97); PLATELET COUNT 242 10^3/uL (150-450); RED BLOOD COUNT 4.21 10^6/uL (3.72-5.28); RED CELL DISTRIBUTION WIDTH 12.7 % (11.5-14.0)
[2019-11-23] MEDS ORDERED: FENTANYL CITRATE INJ/PF 100 MCG/2 ML AMPUL IV PRN ×3 (13:29)
[2019-11-23] MEDS ORDERED: MEPERIDINE HCL/PF INJ 25 MG/1 ML DISP.SYRIN IV PRN (13:29)
[2019-11-23] MEDS ORDERED: PROMETHAZINE HCL INJ 25 MG/1 ML VIAL IV PRN ×2 (13:29)
[2019-11-23] MEDS ORDERED: DIPHENHYDRAMINE HCL 50 MG/ML VIAL IV PRN (13:29)
--- NOTE | 2019-11-23 13:59 | Operative Report ---
Operative Report DATE OF SURGERY: 11/23/19 PREOPERATIVE DIAGNOSIS: Right lower abdominal pain with positive hCG POSTOPERATIVE DIAGNOSIS: The same plus normal tubes in her right apparent corporal luteal cyst OPERATION: Diagnostic laparoscopy SURGEON: NASRIN ABDUL ANESTHESIA: GA TISSUE REMOVED OR ALTERED: No tissue removed ESTIMATED BLOOD LOSS: Negligible PROCEDURE: Patient placed in the dorsolithotomy tissue prepped dorsal fashion. Sponge stick was placed in the vagina bladder was drained with the catheter. Turned to the abdomen where a subumbilical semilunar incision was made trocar was introduced with initial ablation of the abdomen. Laparoscope was introduced with visualization of the uterus which appeared to be normal the right tube was identified from the uterus to the fimbria and no areas of swelling or discoloration were noted. A second puncture was made above the symphysis and a 5 trocar was introduced so that manipulators could be placed to better visualize the adnexa. Was on apparent corporal luteal cyst on the right. On the left a tube appeared to be normal and the ovary also appeared to be within normal limits. The appendix was visualized and appeared to be within normal limits. Laparoscope was removed and abdomen deflated and the trocar sleeves were removed. Umbilical incision was closed with 0 Vicryl for the fascia and 4 oh subcu for the skin. The puncture above the symphysis closed with 4-0 Vicryl. Dermabond was placed on top of both incisions. She was then taken to recovery room in good condition.
[2019-11-23] MEDS ORDERED: PROMETHAZINE HCL INJ 25 MG/1 ML VIAL ONE (14:00)
[2019-11-23] MEDS ORDERED: ACETAMINOPHEN 1,000 MG/100 ML RTUPB IV ONE ×2 (14:01→15:00)
[2019-11-23] MEDS: HYDROMORPHONE HCL 2 MG TABLET PO PRN ×2 (16:09→22:30)
[2019-11-23] MEDS: DEXTROSE 5%-LACTATED RINGERS 1,000 ML IV PRN ×2 (16:10→22:31)
[2019-11-23] MEDS: ACETAMINOPHEN 325 MG TABLET PO SCH ×2 (19:16→23:57)
[2019-11-23] MEDS ORDERED: SIMETHICONE 80 MG TAB.CHEW PO PRN (19:51)
[2019-11-24] MEDS ORDERED: ZOLPIDEM TARTRATE 5 MG TABLET PO PRN (00:45)
[2019-11-24] MEDS ORDERED: HYDROMORPHONE HCL 2 MG TABLET PO ONE (00:45)
[2019-11-24] MEDS: ACETAMINOPHEN 325 MG TABLET PO SCH (05:11)
[2019-11-24] MEDS: HYDROMORPHONE HCL 2 MG TABLET PO PRN (09:38)
[2019-11-24] MEDS: DEXTROSE 5%-LACTATED RINGERS 1,000 ML IV PRN (09:41)
--- NOTE | 2019-11-24 11:32 | PDOC DISCHARGE SUMMARY ---
Impression - Admit/DC Date/PCP Admission Date/Primary Care Provider: ZAHEER RAMSEY MD Discharge Date: 11/24/19 - Assessment Summary: 24yo at 5+0ega by LMP presented from the office with unknown location of and abdominal pain. She was seen in the ER several times on 11/17 (BHCG was 81) then approx 15 hours later in ER again BHCG on (BHCG was 89) and then on 11/22 (BHCG was 556). On 11/19 in the office BHCG was 200. Since she was in significant pain patient was offered diagostic laparoscopy for r/o ectopic. Surgery was uncomplicated and no e/o ectopic only right corpus luteum cyst. Today BHCG is now 725 and more c/w probable early IUP. Reviewed with patient technically still unknown location of and ectopic precautions given. - Additional Information Resuscitation Status: Full Code Discharge Diet: As Tolerated Discharge Activity: Activity As Tolerated, Balance Activity w/Rest, No Driving, No Lifting Over 10 Pounds, No Lifting/Push/Pulling, Pelvic Rest Referrals: [facility] [Provider Group] - 11/27/19 10:00 am (Please follow up with Dr Barth on 11/27/19 at 10:00. If you have any questions please call the office directly at .) Prescriptions: Hydromorphone HCl [Dilaudid 2 mg Tablet] 1 mg PO Q4HP PRN 5 Days #30 tablet PRN Reason: For Pain Scale 3-5 Promethazine HCl [Phenergan 25 mg Tablet] 25 mg PO Q6HP PRN 14 Days #56 tablet PRN Reason: For Nausea/Vomiting Docusate Sodium [Colace] 100 mg PO BID 30 Days #60 capsule Simethicone [Mylicon 80 mg Chewable Tablet] 80 mg PO Q6H 14 Days #56 tab.chew Acetaminophen [Tylenol 325 mg Tablet] 650 mg PO Q6 14 Days #56 tablet Home Medications: Nitroglycerin 0.4 mg SL PRN PRN 11/23/19 Pantoprazole Sodium 20 mg PO DAILY 11/23/19 Acetaminophen [Tylenol 325 mg Tablet] 650 mg PO Q6 14 Days #56 tablet 11/24/19 Docusate Sodium [Colace] 100 mg PO BID 30 Days #60 capsule 03/06/20 Hydromorphone HCl [Dilaudid 2 mg Tablet] 1 mg PO Q4HP PRN 5 Days #30 tablet 11/24/19 Promethazine HCl [Phenergan 25 mg Tablet] 25 mg PO Q6HP PRN 14 Days #56 tablet 11/24/19 Simethicone [Mylicon 80 mg Chewable Tablet] 80 mg PO Q6H 14 Days #56 tab.chew 11/24/19 History of Present Illiness History of Present Illness: MIRELLA DURAN is a 24yo at 5+0ega by LMP presented from the office with unknown location of and abdominal pain. She was seen in the ER several times on 11/17 (BHCG was 81) then approx 15 hours later in ER again BHCG on (BHCG was 89) and then on 11/22 (BHCG was 556). On 11/19 in the office BHCG was 200. Since she was in significant pain patient was offered diagostic l aparoscopy for r/o ectopic. Surgery was uncomplicated and no e/o ectopic only right corpus luteum cyst. Today BHCG is now 725 and more c/w probable early IUP. Reviewed with patient technically still unknown location of and ectopic precautions given. Hospital Course Hospital Course: 24yo at 5+0ega by LMP presented from the office with unknown location of and abdominal pain. She was seen in the ER several times on 11/17 (BHCG was 81) then approx 15 hours later in ER again BHCG on (BHCG was 89) and then on 11/22 (BHCG was 556). On 11/19 in the office BHCG was 200. Since she was in significant pain patient was offered diagostic laparoscopy for r/o ectopic. Surgery was uncomplicated and no e/o ectopic only right corpus luteum cyst. Today BHCG is now 725 and more c/w probable early IUP. Reviewed with patient technically still unknown location of and ectopic precautions given. F/u in office on wednesday and wednesday planned. Physical Exam - Physical Exam Vital Signs: Temp Pulse Resp BP Pulse Ox 97.9 F 101 H 20 111/52 L 100 11/24/19 11:06 11/24/19 11:06 11/24/19 11:06 11/24/19 11:06 11/24/19 11:06 Intake & Output 11/23/19 11/24/19 11/25/19 06:59 06:59 06:59 Intake Total 3074 Output Total 2401 Balance 673 Weight 61.36 kg General appearance: PRESENT: no acute distress, well-developed, well-nourished Head exam: PRESENT: atraumatic, normocephalic Respiratory exam: PRESENT: clear to auscultation memo, symmetrical, unlabored Cardiovascular exam: PRESENT: RRR. ABSENT: diastolic murmur, rubs, systolic murmur GI/Abdominal exam: PRESENT: normal bowel sounds, soft, tenderness, other - approp ttp postop, incisions c/d/i. ABSENT: distended, guarding, mass, organolmegaly, rebound Rectal exam: PRESENT: deferred Extremities exam: PRESENT: full ROM. ABSENT: calf tenderness, clubbing, pedal edema Neurological exam: PRESENT: alert, awake, oriented to person, oriented to place, oriented to time, oriented to situation, CN II-XII grossly intact. ABSENT: motor sensory deficit Psychiatric exam: PRESENT: appropriate affect, normal mood. ABSENT: homicidal ideation, suicidal ideation Skin exam: PRESENT: dry, intact, warm. ABSENT: cyanosis, rash Results Laboratory Results: WBC 6.0 10^3/uL (4.0-10.5) 11/23/19 12:39 RBC 4.21 10^6/uL (3.72-5.28) 11/23/19 12:39 Hgb 13.1 g/dL (12.0-15.5) 11/23/19 12:39 Hct 38.3 % (36.0-47.0) 11/23/19 12:39 MCV 91 fl (80-97) 11/23/19 12:39 MCH 31.0 pg (27.0-33.4) 11/23/19 12:39 MCHC 34.1 g/dL (32.0-36.0) 11/23/19 12:39 RDW 12.7 % (11.5-14.0) 11/23/19 12:39 Plt Count 242 10^3/uL (150-450) 11/23/19 12:39 Beta HCG, Quant 725.28 mIU/mL (0.0-6.15) H 11/24/19 06:08 Total Beta HCG POSITIVE (NEGATIVE) 11/24/19 06:08 Blood Type B POSITIVE 11/23/19 12:39 Antibody Screen NEGATIVE 11/23/19 12:39 Plan Health Concerns: Ectopic precautions. F/u in office planned Stroke Is this a Stroke Patient?: No Acute Heart Failure - Is this a Heart Failure Patient?: No
[2019-11-24 11:37] VITALS: BP 113/63
== END 2019-11-24 11:55 | disposition home or self-care (01) ==
LOC: OROUT 12:07 → 2N 15:25 → OROUT 11-24 11:55
PROVIDERS: ATTEND Obstetrics & Gynecology Gynecology
DX: R10.31 Right lower quadrant pain (principal); Z32.01 Encounter for pregnancy test, result positive; Z88.5 Allergy status to narcotic agent; R00.0 Tachycardia, unspecified; Z87.891 Personal history of nicotine dependence
CPT/HCPCS: 86900; 86901; 36415; 86850; 84702; 85027; 00840; 49320; J2250; J1100; J3010; J2710; J2550; J2405; J7121 ×2; J2704; J3490 ×3; J0131; 840; Q9968

== ENCOUNTER → 2019-11-23 | Outpatient (CLI) | payer BC | LOC: OD 09:23 | PROVIDERS: ATTEND Specialist | DX: O00.90 Unspecified ectopic pregnancy without intrauterine pregnancy (principal) | CPT/HCPCS: 36415; 84702 ==

== ENCOUNTER 2019-12-17 20:15 | Emergency (ER) | payer BC ==
--- NOTE | 2019-12-17 20:28 | ER Document Report ---
ED Medical Screen (RME) - General Chief Complaint: Post Surgical Pain Stated Complaint: POST-OPT Time Seen by Provider: 12/17/19 20:20 Primary Care Provider: ZAHEER RAMSEY MD [Primary Care Provider] - Follow up as needed Information source: Patient Notes: Patient presents complaining of umbilical pain for the past 5 days. Patient reports having a laparoscopic surgery to rule out ectopic 3 weeks ago. Patient states that she is currently 8 weeks . Patient states that she did have a low-grade fever 2 days ago. Patient states she had sharp pain that worsened tonight and she did have some drainage from her umbilical wound. I have greeted and performed a rapid initial assessment of this patient. A comprehensive ED assessment and evaluation of the patient, analysis of test results and completion of the medical decision making process will be conducted by additional ED providers. TRAVEL OUTSIDE OF THE [place] IN LAST 30 DAYS: No - Related Data Allergies/Adverse Reactions: codeine Allergy (Verified 11/17/19 12:43) morphine Allergy (Verified 11/17/19 12:43) tramadol Allergy (Verified 11/17/19 12:43) ibuprofen Adverse Reaction (Verified 11/17/19 12:43) Past Medical History - Social History Chew tobacco use (# tins/day): No Frequency of alcohol use: None Drug Abuse: None - Past Medical History Cardiac Medical History: Denies: Hx Coronary Artery Disease, Hx Heart Attack, Hx Hypertension Pulmonary Medical History: Denies: Hx Asthma, Hx Bronchitis, Hx COPD, Hx Pneumonia Neurological Medical History: Denies: Hx Cerebrovascular Accident, Hx Seizures Renal/ Medical History: Reports: Hx Ovarian Cysts Musculoskeltal Medical History: Denies Hx Arthritis Past Surgical History: Reports: Hx Adenoidectomy, Hx Cholecystectomy, Hx Tonsillectomy - Adenoid removal Physical Exam - Abdominal Tenderness: Tender - Umbilical tenderness Doctor's Discharge - Discharge Referrals: ZAHEER RAMSEY MD [Primary Care Provider] - Follow up as needed
[2019-12-17 21:12] LABS: ABSOLUTE EOSINOPHILS # (AUTO) 0.1 10^3/uL (0.0-0.6); ABSOLUTE LYMPHOCYTES (AUTO) 1.9 10^3/uL (0.5-4.7); ABSOLUTE MONOCYTES (AUTO) 0.6 10^3/uL (0.1-1.4); ABSOLUTE NEUT (AUTO) 5.8 10^3/uL (1.7-8.2); BASOPHILS % (AUTO) 0.5 % (0-2); EOSINOPHILS % (AUTO) 1.1 % (0-6); HEMATOCRIT 43.1 % (36.0-47.0); HEMOGLOBIN 15.2 g/dL (12.0-15.5); LYMPHOCYTES % (AUTO) 22.9 % (13-45); MEAN CORPUSCULAR HEMOGLOBIN 32.1 pg (27.0-33.4); MEAN CORPUSCULAR HGB CONC 35.2 g/dL (32.0-36.0); MEAN CORPUSCULAR VOLUME 91 fl (80-97); MONOCYTES % (AUTO) 6.7 % (3-13); PLATELET COUNT 266 10^3/uL (150-450); RED BLOOD COUNT 4.73 10^6/uL (3.72-5.28); RED CELL DISTRIBUTION WIDTH 12.5 % (11.5-14.0); SEGMENTED NEUTROPHILS % (AUTO) 68.8 % (42-78); TOTAL CELLS COUNTED % (AUTO) 100 %; WHITE BLOOD COUNT 8.5 10^3/uL (4.0-10.5)
[2019-12-17 21:26] LABS: APPEARANCE,URINE CLOUDY; BILIRUBIN,URINE NEGATIVE (NEGATIVE); COLOR,URINE YELLOW; GLUCOSE, URINE NEGATIVE (NEGATIVE); KETONES,URINE NEGATIVE (NEGATIVE); LEUKOCYTE ESTERASE,URINE NEGATIVE (NEGATIVE); NITRITE,URINE POSITIVE (NEGATIVE); PROTEIN,URINE NEGATIVE (NEGATIVE); URINE SPECIFIC GRAVITY 1.018; UROBILINOGEN,URINE NEGATIVE mg/dL (<2.0)
[2019-12-17 21:28] LABS: ALKALINE PHOSPHATASE 67 U/L (38-126); ANION GAP 11 (5-19); ASPARTATE AMINO TRANSFERASE 17 U/L (14-36); BILIRUBIN,DIRECT 0.2 mg/dL (0.0-0.4); BILIRUBIN,TOTAL 0.4 mg/dL (0.2-1.3); BLOOD UREA NITROGEN 9 mg/dL (7-20); CALCIUM 9.9 mg/dL (8.4-10.2); CARBON DIOXIDE 26 mmol/L (22-30); CHLORIDE 101 mmol/L (98-107); GLUCOSE 84 mg/dL (75-110); POTASSIUM 4.4 mmol/L (3.6-5.0); TOTAL PROTEIN 8.6 g/dL (6.3-8.2)
--- NOTE | 2019-12-17 21:54 | RADIOLOGY REPORT (SQ) ---
CLINICAL INDICATION: periumbilical area, post op tenderness. . TECHNIQUE: Real time multiplanar ultrasonographic aguirre scale imaging was obtained of the abdomen in the area of concern. 10 images obtained. COMPARISON: None. CORRELATION: None. FINDINGS: In the area of postsurgical change and incision periumbilical shadow is identified presumably from surgical change. No discrete drainable collection. Soft tissue edema is seen IMPRESSION: No evidence of drainable collection.
[2019-12-17] MEDS ORDERED: OXYCODONE HCL IR 5 MG TABLET PO ONE (22:23)
[2019-12-17] MEDS ORDERED: CEPHALEXIN 500 MG CAPSULE PO ONE (22:23)
[2019-12-17] MEDS ORDERED: METOCLOPRAMIDE HCL 10 MG TABLET PO ONE (22:24)
--- NOTE | 2019-12-17 22:27 | ER Document Report ---
ED General - General Chief Complaint: Post Surgical Pain Stated Complaint: POST-OPT Time Seen by Provider: 12/17/19 20:20 Primary Care Provider: ZAHEER RAMSEY MD [ACTIVE STAFF] - Follow up as needed Notes: Patient is a 24-year-old female that comes emergency department for chief complaint of possible postoperative wound infection. She states that she had laparoscopic surgery to rule out ectopic with Dr. Barth on 11/23/2019, she states that the procedure showed an inflamed cystic area, no ectopic pregnan cy, but she has not been able to make it to an appointment to confirm the by ultrasound yet because of the current pandemic. She denies vaginal bleeding, she states she felt like she was running fevers but she has not had a fever today, she states that for the past 5 days the area at the umbilicus has become more tender and over the past day or so it has become much more red, she has noticed some yellowish drainage, and it has become much more painful. Pain does extend slightly down into the lower abdomen as well. She denies vomiting, she denies any other complaints. She is 8 weeks gestation by last menstrual period. TRAVEL OUTSIDE OF THE [place] IN LAST 30 DAYS: No - Related Data Allergies/Adverse Reactions: codeine Allergy (Verified 11/17/19 12:43) morphine Allergy (Verified 11/17/19 12:43) tramadol Allergy (Verified 11/17/19 12:43) ibuprofen Adverse Reaction (Verified 11/17/19 12:43) Past Medical History - General Information source: Patient - Social History Smoking Status: Never Smoker Chew tobacco use (# tins/day): No Frequency of alcohol use: None Drug Abuse: None Family History: None Patient has suicidal ideation: No Patient has homicidal ideation: No - Past Medical History Cardiac Medical History: Denies: Hx Coronary Artery Disease, Hx Heart Attack, Hx Hypertension Pulmonary Medical History: Denies: Hx Asthma, Hx Bronchitis, Hx COPD, Hx Pneumonia Neurological Medical History: Denies: Hx Cerebrovascular Accident, Hx Seizures Renal/ Medical History: Reports: Hx Ovarian Cysts Musculoskeletal Medical History: Denies Hx Arthritis Past Surgical History: Reports: Hx Adenoidectomy, Hx Cholecystectomy, Hx Tonsillectomy - Adenoid removal Review of Systems - Review of Systems Constitutional: No symptoms reported EENT: No symptoms reported Cardiovascular: No symptoms reported Respiratory: No symptoms reported Gastrointestinal: See HPI Genitourinary: No symptoms reported Female Genitourinary: See HPI Musculoskeletal: No symptoms reported Skin: See HPI Hematologic/Lymphatic: No symptoms reported Neurological/Psychological: No symptoms reported Physical Exam - Vital signs Vitals: Temp Pulse Resp BP Pulse Ox 98.1 F 100 18 125/70 100 12/17/19 20:27 12/17/19 20:27 12/17/19 20:27 12/17/19 20:12/17/19 20:27 - Notes Notes: GENERAL: Alert, interacts well. No acute distress. HEAD: Normocephalic, atraumatic. EYES: Pupils equal, round, and reactive to light. Extraocular movements intact. ENT: Oral mucosa moist, tongue midline. Oropharynx unremarkable. Airway patent. LUNGS: Clear to auscultation bilaterally, no wheezes, rales, or rhonchi. No respiratory distress. HEART: Regular rate and rhythm. No murmur ABDOMEN: There is some generalized abdominal tenderness at the umbilicus and just below it. There is erythema extending just below the umbilicus but there is no induration, fluctuance, purulent drainage. There is no open wound, examination of the navel with a Q-tip does not show any extending wounds into the abdomen. Wound appears to have been healed. Otherwise unremarkable. GENITOURINARY: Deferred EXTREMITIES: Moves all 4 extremities spontaneously. No edema, normal radial and dorsalis pedis pulses bilaterally. No cyanosis. BACK: no cervical, thoracic, lumbar midline tenderness. No saddle anesthesia, normal distal neurovascular exam. Moves all extremities in full range of motion. NEUROLOGICAL: Alert and oriented x3. Normal speech. Cranial nerves II through XII grossly intact. PSYCH: Speaks slightly anxiously but otherwise unremarkable SKIN: Warm, dry, normal turgor. No rashes or lesions noted. Course - Re-evaluation Re-evalutation: Patient does have evidence of developing cellulitis but there is no induration, fluctuance, and the ultrasound is not show any abscess underneath the skin. She has no fever, no leukocytosis, area appears to be early developing. Urine shows infection, laboratory work-up unremarkable with reassuring hCG. Blood type was just checked a few days ago and is be positive. Transvaginal ultrasound shows intrauterine with heartbeat. There is also a small subchorionic hemorrhage. RhoGam is not indicated because of her blood type. I called and spoke with Dr. Leiva, on-call for Dr. Barth (patient surgeon). Discussed area of suspected developing cellulitis, general work-up. She requested patient's name, patient will be contacted tomorrow approximately for close follow-up and additional management. Discussed with patient all details, patient states understanding and agreement with plan. Stable at time of discharge. - Vital Signs Vital signs: Temp Pulse Resp BP Pulse Ox 97.8 F 81 18 124/70 98 12/18/19 00:48 12/18/19 00:48 12/18/19 00:48 12/18/19 00:48 12/18/19 00:48 - Laboratory Result Diagrams: 12/17/19 20:50 12/17/19 20:50 Laboratory results interpreted by me: 12/17/19 12/17/19 20:50 20:50 Creatinine 0.46 L Total Protein 8.6 H Beta HCG, Quant 87671.00 H Urine Nitrite POSITIVE H Urine Ascorbic Acid 40 H Discharge - Discharge Clinical Impression: Abdominal pain affecting Cellulitis Qualifiers: Site of cellulitis: unspecified site Qualified Code(s): L03.90 - Cellulitis, unspecified Urinary tract infection Qualifiers: Urinary tract infection type: site unspecified Hematuria presence: without hematuria Qualified Code(s): N39.0 - Urinary tract infection, site not specified Condition: Stable Disposition: HOME, SELF-CARE Instructions: Oral Narcotic Medication ([facility]) Additional Instructions: Your examination indicates cellulitis, skin infection. There is no evidence of abscess or other concerning findings in regards to this at this time. You also have a urinary tract infection. Take the Keflex antibiotics as prescribed, keep the area clean with soap and water, keep topical antibiotic over the area. I spoke with Dr. Leiva, ASSISTANT TENNIS PROFESSIONAL on-call tonight, you will be contacted (likely tomorrow). You have a subchorionic hemorrhage along with an otherwise normal-appearing , perform pelvic rest (avoid any significant physical activity, lifting, sexual intercourse, etc. until cleared by ASSISTANT TENNIS PROFESSIONAL). Return for any concerning symptoms including severe worsening pain, spreading redness, spiking fever, or any other concerning symptoms. Prescriptions: Cephalexin Monohydrate [Keflex 500 mg Capsule] 500 mg PO QID #28 capsule Referrals: ZAHEER RAMSEY MD [ACTIVE STAFF] - Follow up as needed
--- NOTE | 2019-12-17 23:40 | RADIOLOGY REPORT (SQ) ---
US PELVIS EXAM DATE: 12/17/2019 10:24 PM CDT HISTORY: Early . Pelvic pain. COMPARISON: None. TECHNIQUE: Grayscale, color Doppler, and spectral Doppler ultrasound images of the pelvis were obtained. FINDINGS: There is an intrauterine gestational sac with a yolk sac and pole visualized. The crown-rump length is 1.95 cm corresponding to 8 weeks 4 days. There is an adjacent 2.2 cm subchorionic hematoma. The heart rate is 168 bpm. The cervix measures 3.5 cm in length and is closed. The right ovary is normal in size measuring 3.6 x 1.8 x 2.7 cm and contains normal color Doppler blood flow. The left ovary is not seen. No free fluid. IMPRESSION: Single live IUP with estimated gestational age 8 weeks 4 days.
[2019-12-18] MEDS ORDERED: HYDROCODONE/ACETAMINOPHEN 5-325 MG (6 TAB/ER DISP) PO PRN (00:06)
[2019-12-18 00:30] VITALS: BP 124/70
== END 2019-12-18 00:48 | disposition home or self-care (01) ==
LOC: ER 20:15
DX: O99.711 Diseases of the skin and subcutaneous tissue complicating pregnancy, first trimester (principal); L03.90 Cellulitis, unspecified; O23.41 Unspecified infection of urinary tract in pregnancy, first trimester; O20.8 Other hemorrhage in early pregnancy; O26.891 Other specified pregnancy related conditions, first trimester; R10.33 Periumbilical pain; R10.815 Periumbilic abdominal tenderness; R10.30 Lower abdominal pain, unspecified; Z3A.08 8 weeks gestation of pregnancy; Z98.890 Other specified postprocedural states; Z88.6 Allergy status to analgesic agent; Z88.5 Allergy status to narcotic agent
CPT/HCPCS: 36415; 76705; 76817; 80053; 81001; 84702; 85025; 87086; 87088; 87186; 93976; 99284

== ENCOUNTER 2019-12-19 00:15 | Emergency (ER) | payer BC ==
[2019-12-19] MEDS ORDERED: METOCLOPRAMIDE HCL INJ/PF 10 MG/2 ML SDV IV ONE (00:59)
[2019-12-19 01:01] LABS: APPEARANCE,URINE SLIGHTLY-CLOUDY; BILIRUBIN,URINE NEGATIVE (NEGATIVE); COLOR,URINE YELLOW; GLUCOSE, URINE NEGATIVE (NEGATIVE); KETONES,URINE NEGATIVE (NEGATIVE); LEUKOCYTE ESTERASE,URINE NEGATIVE (NEGATIVE); NITRITE,URINE NEGATIVE (NEGATIVE); PROTEIN,URINE NEGATIVE (NEGATIVE); URINE SPECIFIC GRAVITY 1.013; UROBILINOGEN,URINE NEGATIVE mg/dL (<2.0)
--- NOTE | 2019-12-19 01:10 | ER Document Report ---
ED General - General TRAVEL OUTSIDE OF THE [place] IN LAST 30 DAYS: No - Related Data Home Medications: antibiotic. pain meds <SARAH YEPEZ - Last Filed: 12/19/19 01:48> - General Mode of Arrival: Ambulatory Information source: Patient TRAVEL OUTSIDE OF THE [place] IN LAST 30 DAYS: No <MARCELO JAIMES - Last Filed: 12/19/19 03:15> - General Chief Complaint: Abdominal Pain Stated Complaint: ABDOMINAL PAIN Time Seen by Provider: 12/19/19 00:47 Primary Care Provider: ZAHEER RAMSEY MD [Primary Care Provider] - Follow up as needed - [facility] Notes: CC: Periumbilical pain, vaginal spotting, nausea/vomiting 24 y.o. female @ 8 weeks 4 days EGA. Seen in ED last PM with a chief compl aint of possible postoperative wound infection. She states that she had laparoscopic surgery to rule out ectopic with Dr. Abdul on 11/23/2019. Patient reports that the procedure showed an inflamed cystic area, no ectopic . She had not been able to make it to an appointment to confirm the by ultrasound yet because of the current pandemic. Evaluation here last PM showed IUP 8 w +4d. Laparocopic wound looked clean per documented exam. No fever or leukocytosis on labs then. PA d/w Dr. Kline and plan was for d/c on PRN Duncan and some oral Keflex with outpt. f/u next 2-3 days. Pt. developed nausea and had an episode of vomiting this afternoon and once again had some severe periumbilical cramping which she says was "like a uterine contraction". She has had some very minimal vaginal spotting. She spoke with nurse at her [employer]OM[employer]IC PROFILE [employer]PER[employer] office and was advised to come to the emergency department. She denies any fever or chills. She reports mild urinary frequency but no dysuria or hematuria. (SARAH YEPEZ) - Related Data Allergies/Adverse Reactions: codeine Allergy (Verified 12/19/19 00:26) morphine Allergy (Verified 12/19/19 00:26) tramadol Allergy (Verified 12/19/19 00:26) ibuprofen Adverse Reaction (Verified 12/19/19 00:26) Past Medical History - General Information source: Patient, [facility] Records - Social History Smoking Status: Former Smoker Family History: None Patient has suicidal ideation: No Patient has homicidal ideation: No - Past Medical History Cardiac Medical History: Denies: Hx Coronary Artery Disease, Hx Heart Attack, Hx Hypertension Pulmonary Medical History: Denies: Hx Asthma, Hx Bronchitis, Hx COPD, Hx Pneumonia Neurological Medical History: Denies: Hx Cerebrovascular Accident, Hx Seizures Renal/ Medical History: Reports: Hx Ovarian Cysts Musculoskeletal Medical History: Denies Hx Arthritis Past Surgical History: Reports: Hx Adenoidectomy, Hx Cholecystectomy, Hx Tonsillectomy - Adenoid removal <SARAH YEPEZ E - Last Filed: 12/19/19 01:48> Review of Systems <SARAH YEPEZ E - Last Filed: 12/19/19 01:48> - Review of Systems Notes: Constitutional: Negative for fever. HENT: Negative for sore throat. Eyes: Negative for visual changes. Cardiovascular: Negative for chest pain. Respiratory: Negative for shortness of breath. Gastrointestinal: As per HPI. Genitourinary: Negative for dysuria. Musculoskeletal: Negative for back pain. Skin: Negative for rash. Neurological: Negative for headaches, weakness or numbness. 10 point ROS negative except as marked above and in HPI. (SARAH YEPEZ) Physical Exam <SARAH YEPEZ E - Last Filed: 12/19/19 01:48> - Vital signs Vitals: Temp Pulse Resp BP Pulse Ox 98.1 F 109 H 16 124/50 L 100 12/19/19 00:18 12/19/19 00:18 12/19/19 00:18 12/19/19 00:18 12/19/19 00:18 - Notes Notes: GENERAL: Female patient of approximately stated age who appears anxious but otherwise in no acute distress. SKIN: Good turgor no rashes. 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 HEAD: Normocephalic atraumatic. EYES: PERRLA. EOMI. Conjunctivae and sclerae clear. EARS: CANALS AND TMS CLEAR. NOSE: CLEAR. MOUTH: Moist mucosa. Good dentition. No stridor or edema. No drooling. NECK: Supple. No masses or thyromegaly. No adenopathy. Carotids 2+ without bruits. No JVD. BACK: Symmetrical without tenderness. CHEST: Respirations unlabored. Breath sounds clear and symmetrical. HEART: Regular rhythm. No murmur gallop or rub. ABDOMEN: Patient has a periumbilical laparoscopic wound which is healing. This is exquisitely tender but she does not show any redness drainage or swelling that I can see. Soft without masses, organomegaly or rebound. Bowel sounds normally active. No bruits. GENITALIA: Deferred. EXTREMITIES: No edema. No calf tenderness. Cap refill less than 1.5 seconds. Dorsalis pedis and posterior tibial pulses 3+ and symmetrical. NEUROLOGICAL: GCS 15. Alert and oriented x3. Normal gait. Fluent speech. Cranial nerves II through XII intact. Sensorimotor and cerebellar normal. Normal tone. PSYCHIATRIC: Anxious affect. (SARAH YEPEZ) Course - Laboratory Result Diagrams: 12/19/19 00:50 12/19/19 00:50 <SARAH YEPEZ - Last Filed: 12/19/19 01:48> - Laboratory Result Diagrams: 12/19/19 00:50 12/19/19 00:50 <MARCELO JAIMES - Last Filed: 12/19/19 03:15> - Re-evaluation Re-evalutation: 12/19/19 01:48 Patient was given IV normal saline and IV Reglan. We will repeat labs on her and also repeat a transvaginal ultrasound. Further care of this patient is turned over to Dr. Marcelo Jaimes at 0151 hrs. with ultrasound and lab results pending. (SARAH YEPEZ) - Vital Signs Vital signs: Temp Pulse Resp BP Pulse Ox 98.1 F 109 H 16 124/50 L 100 12/19/19 00:18 12/19/19 00:18 12/19/19 00:18 12/19/19 00:18 12/19/19 01:12 - Laboratory Laboratory results interpreted by me: 12/19/19 00:50 BUN 6 L Creatinine 0.45 L Beta HCG, Quant 60661.00 H Discharge <SARAH YEPEZ - Last Filed: 12/19/19 01:48> <MARCELO JAIMES - Last Filed: 12/19/19 03:15> - Discharge Clinical Impression: Threatened Subchorionic hemorrhage Qualifiers: Fetus number: single or unspecified fetus Trimester: first trimester Qualified Code(s): O41.8X10 - Other specified disorders of amniotic fluid and membranes, first trimester, not applicable or unspecified Condition: Stable Disposition: HOME, SELF-CARE Instructions: Threatened Miscarriage ([facility]) Additional Instructions: Follow up with your [employer] Doctor in the next 1-2 days to follow up for a possible miscarriage. Your Beta HCG on 12/17/2019 was [id number] and your Beta HCG on 12/19/2019 was [id number]. Your ultrasound from both days showed a viable intrauterine at 8 weeks and 4 days with a subchorionic hemorrhage. Use Tylenol for pain. Referrals: ZAHEER RAMSEY MD [Primary Care Provider] - Follow up as needed JULIAN KLINE MD [ACTIVE STAFF] - Follow up as needed NASRIN ABDUL MD [ACTIVE STAFF] - Follow up as needed
[2019-12-19] MEDS ORDERED: NORMAL SALINE 1000 ML 1,000 ML IV ONE (01:13)
[2019-12-19 01:15] LABS: ABSOLUTE EOSINOPHILS # (AUTO) 0.1 10^3/uL (0.0-0.6); ABSOLUTE LYMPHOCYTES (AUTO) 2.5 10^3/uL (0.5-4.7); ABSOLUTE MONOCYTES (AUTO) 0.6 10^3/uL (0.1-1.4); ABSOLUTE NEUT (AUTO) 3.2 10^3/uL (1.7-8.2); BASOPHILS % (AUTO) 0.8 % (0-2); EOSINOPHILS % (AUTO) 1.5 % (0-6); HEMATOCRIT 42.1 % (36.0-47.0); HEMOGLOBIN 14.3 g/dL (12.0-15.5); LYMPHOCYTES % (AUTO) 38.4 % (13-45); MEAN CORPUSCULAR HEMOGLOBIN 31.3 pg (27.0-33.4); MEAN CORPUSCULAR HGB CONC 33.9 g/dL (32.0-36.0); MEAN CORPUSCULAR VOLUME 92 fl (80-97); MONOCYTES % (AUTO) 9.6 % (3-13); PLATELET COUNT 268 10^3/uL (150-450); RED BLOOD COUNT 4.56 10^6/uL (3.72-5.28); RED CELL DISTRIBUTION WIDTH 12.5 % (11.5-14.0); SEGMENTED NEUTROPHILS % (AUTO) 49.7 % (42-78); TOTAL CELLS COUNTED % (AUTO) 100 %; WHITE BLOOD COUNT 6.4 10^3/uL (4.0-10.5)
[2019-12-19 01:17] LABS: ALBUMIN 4.4 g/dL (3.5-5.0); ALKALINE PHOSPHATASE 57 U/L (38-126); ANION GAP 9 (5-19); ASPARTATE AMINO TRANSFERASE 18 U/L (14-36); BILIRUBIN,TOTAL 0.2 mg/dL (0.2-1.3); BLOOD UREA NITROGEN 6 mg/dL (7-20); CALCIUM 9.7 mg/dL (8.4-10.2); CARBON DIOXIDE 26 mmol/L (22-30); CHLORIDE 103 mmol/L (98-107); GLUCOSE 82 mg/dL (75-110); POTASSIUM 4.3 mmol/L (3.6-5.0); TOTAL PROTEIN 7.6 g/dL (6.3-8.2)
--- NOTE | 2019-12-19 02:25 | RADIOLOGY REPORT (SQ) ---
EXAM DESCRIPTION: US LESS THAN 14 WEEKS CLINICAL HISTORY: 24 years Female vaginal bleeding, pelvic pain, , beta hCG = 78,675, LMP 10/20/2019. COMPARISON: None TECHNIQUE: Transabdominal limited OB ultrasound was performed for a total of 50 images. FINDINGS: The uterus is anteverted and measures 8.6 x 6.7 x 6.8 cm. The cervix measures approximately 3.4 cm in length and is closed. The right ovary measures 4.1 x 2.6 x 2.8 cm with normal spectral Doppler flow and contains a 1.8 cm corpus luteum cyst. The left ovary is not visualized. There is an intrauterine gestational sac containing a yolk sac and pole. heart rate is measured at 169 bpm. The crown-rump length measurement gives an EGA of 8 weeks 4 days. The clinical age is also 8 weeks 4 days. The yolk sac measures 4 mm in diameter. There is a small amount of subchorionic hemorrhage. IMPRESSION: Single viable intrauterine with an EGA of 8 weeks 4 days by ultrasound and LMP giving an EDC on 07/26/2020. There is a small amount of subchorionic hemorrhage.
[2019-12-19] MEDS ORDERED: HYDROCODONE/ACETAMINOPHEN 5-325 MG (6 TAB/ER DISP) PO PRN (03:24)
[2019-12-19 03:39] VITALS: BP 117/66
== END 2019-12-19 03:30 | disposition home or self-care (01) ==
LOC: ER 00:15
DX: O20.0 Threatened abortion (principal); O20.8 Other hemorrhage in early pregnancy; O21.9 Vomiting of pregnancy, unspecified; O26.891 Other specified pregnancy related conditions, first trimester; R10.33 Periumbilical pain; R35.0 Frequency of micturition; O99.111 Other diseases of the blood and blood-forming organs and certain disorders involving the immune mechanism complicating pregnancy, first trimester; D22.61 Melanocytic nevi of right upper limb, including shoulder; Z3A.08 8 weeks gestation of pregnancy; Z98.890 Other specified postprocedural states; Z87.891 Personal history of nicotine dependence; Z88.6 Allergy status to analgesic agent; Z88.5 Allergy status to narcotic agent
CPT/HCPCS: 99284; 96361; 96374; 36415; 84702; 83690; 85025; 80053; 81001; 76801; J2765; J7030

== ENCOUNTER 2020-03-16 14:40 | Outpatient (CLI) | payer OTHER ==
[2020-03-16 15:30] LABS: BACTERIA (WET MOUNT) 4+ BACTERIA SEEN; EPITHELIALS (WET MOUNT) 3+ EPITHELIALS SEEN; RBCS (WET MOUNT) RARE RBCS SEEN; T.VAGINALIS (WET MOUNT) NO TRICHOMONAS SEEN; WBCS (WET MOUNT) 3+ WBCS SEEN; YEAST (WET MOUNT) YEAST SEEN
[2020-03-16 15:39] LABS: APPEARANCE,URINE CLEAR; BILIRUBIN,URINE NEGATIVE (NEGATIVE); COLOR,URINE YELLOW; GLUCOSE, URINE NEGATIVE (NEGATIVE); KETONES,URINE NEGATIVE (NEGATIVE); LEUKOCYTE ESTERASE,URINE NEGATIVE (NEGATIVE); NITRITE,URINE NEGATIVE (NEGATIVE); PROTEIN,URINE NEGATIVE (NEGATIVE); URINE SPECIFIC GRAVITY 1.015; UROBILINOGEN,URINE NEGATIVE mg/dL (<2.0)
--- NOTE | 2020-03-16 15:49 | RADIOLOGY REPORT (SQ) ---
EXAM DESCRIPTION: U/S OB LIMITED IMAGES COMPLETED DATE/TIME: 03/16/2020 3:27 pm REASON FOR STUDY: cervical length COMPARISON: 12/19/2019 TECHNIQUE: Limited transabdominal grayscale ultrasound for evaluation of specific requested obstetri donna parameters. LIMITATIONS: None. FINDINGS: CERVICAL LENGTH: 4.0 cm. Closed. KARYN: 11.8 cm. FHR: 140 beats per minute. PRESENTATION: Breech. PLACENTA: Anterior. There is a nonspecific hypoechoic area in the anterior placenta which measures u p to 3 cm with some increased surrounding vascularity. ANATOMY: Not assessed OTHER: Estimated weight is 397 +/- 59 g. IMPRESSION: LIMITED OBSTETRICAL ULTRASOUND WITH MEASURED PARAMETERS DELINEATED ABOVE. HETEROGENEOUS REGION IN THE PLACENTA IS NONSPECIFIC. CLOSE CLINICAL AND IMAGING FOLLOWUP MAY BE NILA ANTED. THIS LOOKS LIKE A MILDLY HYPERVASCULAR REGION. Trimester of : Second trimester - 13 weeks 1 day to 27 weeks 6 days. TECHNICAL DOCUMENTATION: JOB ID: [id number] 2010 [employer]- All Rights Reserved Reading location - IP/workstation name: [email or web address]
[2020-03-16 15:55] LABS: URINE AMPHETAMINES SCREEN NEGATIVE; URINE BARBITURATES SCREEN NEGATIVE; URINE BENZODIAZEPINES SCREEN NEGATIVE; URINE COCAINE SCREEN NEGATIVE; URINE MARIJUANA (THC) SCREEN NEGATIVE; URINE METHADONE SCREEN NEGATIVE; URINE PHENCYCLIDINE SCREEN NEGATIVE
[2020-03-16] MEDS ORDERED: CEFTRIAXONE INJ 1000 MG VIAL IM ONE (16:01)
[2020-03-16] MEDS ORDERED: CEFTRIAXONE INJ 1000 MG VIAL ONE (16:01)
[2020-03-16] MEDS ORDERED: LIDOCAINE 1% INJ-PF (10 MG/ML) 30 ML SDV INJ ONE (16:01)
[2020-03-16] MEDS ORDERED: LIDOCAINE 1% INJ-PF (10 MG/ML) 30 ML SDV ONE (16:03)
[2020-03-16 16:55] LABS: CHLAM PCR NOT DETECTED (NOT DETECT)
== END 2020-03-16 16:36 | disposition home or self-care (01) ==
LOC: LC 14:40
PROVIDERS: ATTEND Obstetrics & Gynecology Gynecology
DX: O98.812 Other maternal infectious and parasitic diseases complicating pregnancy, second trimester (principal); B37.3 Candidiasis of vulva and vagina; Z3A.21 21 weeks gestation of pregnancy
CPT/HCPCS: 87210; 81001; 80307; 87491; 87591; 76815; 59899; J3490; J0696

== ENCOUNTER 2020-03-16 22:07 | Outpatient (CLI) | payer OTHER ==
[2020-03-16 22:37] LABS: APPEARANCE,URINE CLEAR; BILIRUBIN,URINE NEGATIVE (NEGATIVE); COLOR,URINE STRAW; GLUCOSE, URINE NEGATIVE (NEGATIVE); KETONES,URINE NEGATIVE (NEGATIVE); LEUKOCYTE ESTERASE,URINE NEGATIVE (NEGATIVE); NITRITE,URINE NEGATIVE (NEGATIVE); PROTEIN,URINE NEGATIVE (NEGATIVE); URINE SPECIFIC GRAVITY 1.005; UROBILINOGEN,URINE NEGATIVE mg/dL (<2.0)
[2020-03-16 22:51] LABS: URINE AMPHETAMINES SCREEN NEGATIVE; URINE BARBITURATES SCREEN NEGATIVE; URINE BENZODIAZEPINES SCREEN NEGATIVE; URINE COCAINE SCREEN NEGATIVE; URINE MARIJUANA (THC) SCREEN NEGATIVE; URINE METHADONE SCREEN NEGATIVE; URINE PHENCYCLIDINE SCREEN NEGATIVE
== END 2020-03-16 23:30 | disposition home or self-care (01) ==
LOC: LC 22:07
PROVIDERS: ATTEND Obstetrics & Gynecology Gynecology
DX: O98.812 Other maternal infectious and parasitic diseases complicating pregnancy, second trimester (principal); B37.3 Candidiasis of vulva and vagina; Z3A.21 21 weeks gestation of pregnancy
CPT/HCPCS: 80307; 81001

== ENCOUNTER 2020-03-22 11:56 | Emergency (ER) | payer SELFPAY ==
--- NOTE | 2020-03-22 13:51 | ER Document Report ---
ED Medical Screen (RME) - General Chief Complaint: Headache Stated Complaint: DIZZINESS/HEADACHE Time Seen by Provider: 03/22/20 13:34 Primary Care Provider: ZAHEER RAMSEY MD [Primary Care Provider] - Follow up as needed TRAVEL OUTSIDE OF THE [place]. IN LAST 30 DAYS: No - HPI Notes: 03/22/20 13:48 25-year-old female 3 para 2, 22 weeks with a history of small v essel disease, chronic tachycardia, PVD, pots-like symptoms who recently moved from [facility] to [place] presents today with complaints of a global headache that started yesterday and is become progressively worse behind the left eye with blurred vision. Denies any numbness or tingling down arms or legs, denies any chest pain or shortness of breath, no nausea or vomiting. 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 Patient states this is a "nasty headache, denies history of headache or migraines. Denies any fevers or chills. Patient states her blood pressure is elevated for her which is usually in the low 100 systolically. I have greeted and performed a rapid initial assessment of this patient. A comprehensive ED assessment and evaluation of the patient, analysis of test results and completion of the medical decision making process will be conducted by additional ED providers. PHYSICAL EXAMINATION: GENERAL: Well-appearing, well-nourished and in no acute distress. HEAD: Atraumatic, normocephalic. EYES: Pupils equal round extraocular movements intact, conjunctiva are normal. NECK: Normal range of motion CV: s1, s2 regular LUNGS: No respiratory distress Musculoskeletal: Normal range of motion NEUROLOGICAL: Normal speech, normal gait. PERRLA, EOMI. Full motor and sensory function throughout. Reading Assistant + 2 equal bilaterally in BUE. Tongue midline. Strength is 5 out of 5 in bilateral upper and lower extremities equally.Speaks in full sentences. No weakness on one side. Romberg gait steady able to walk straight line. SKIN: Warm, Dry, normal turgor, no rashes or lesions noted. - Related Data Allergies/Adverse Reactions: codeine Allergy (Verified 03/22/20 13:32) morphine Allergy (Verified 03/22/20 13:32) tramadol Allergy (Verified 03/22/20 13:32) ibuprofen Adverse Reaction (Verified 03/22/20 13:32) Past Medical History - Past Medical History Cardiac Medical History: Denies: Hx Coronary Artery Disease, Hx Heart Attack, Hx Hypertension Pulmonary Medical History: Denies: Hx Asthma, Hx Bronchitis, Hx COPD, Hx Pneumonia Neurological Medical History: Denies: Hx Cerebrovascular Accident, Hx Seizures Renal/ Medical History: Reports: Hx Ovarian Cysts Musculoskeltal Medical History: Denies Hx Arthritis Past Surgical History: Reports: Hx Adenoidectomy, Hx Cholecystectomy, Hx Tons illectomy - Adenoid removal Physical Exam - Vital signs Vitals: Temp Pulse BP Pulse Ox 99.2 F 125 H 122/67 100 03/22/20 11:59 03/22/20 11:59 03/22/20 11:59 03/22/20 11:59 Course - Vital Signs Vital signs: Temp Pulse Resp BP Pulse Ox 99.2 F 125 H 122/67 100 03/22/20 11:59 03/22/20 11:59 03/22/20 11:59 03/22/20 11:59 Doctor's Discharge - Discharge Referrals: ZAHEER RAMSEY MD [Primary Care Provider] - Follow up as needed
[2020-03-22 14:31] LABS: ABSOLUTE BASOPHILS # (AUTO) 0.1 10^3/uL (0.0-0.2); ABSOLUTE EOSINOPHILS # (AUTO) 0.1 10^3/uL (0.0-0.6); ABSOLUTE LYMPHOCYTES (AUTO) 1.8 10^3/uL (0.5-4.7); ABSOLUTE MONOCYTES (AUTO) 0.6 10^3/uL (0.1-1.4); ABSOLUTE NEUT (AUTO) 5.8 10^3/uL (1.7-8.2); APPEARANCE,URINE SLIGHTLY-CLOUDY; BASOPHILS % (AUTO) 0.7 % (0-2); BILIRUBIN,URINE NEGATIVE (NEGATIVE); COLOR,URINE YELLOW; EOSINOPHILS % (AUTO) 1.1 % (0-6); GLUCOSE, URINE NEGATIVE (NEGATIVE); HEMATOCRIT 37.3 % (36.0-47.0); HEMOGLOBIN 12.9 g/dL (12.0-15.5); KETONES,URINE NEGATIVE (NEGATIVE); LEUKOCYTE ESTERASE,URINE NEGATIVE (NEGATIVE); LYMPHOCYTES % (AUTO) 21.7 % (13-45); MEAN CORPUSCULAR HEMOGLOBIN 31.7 pg (27.0-33.4); MEAN CORPUSCULAR HGB CONC 34.5 g/dL (32.0-36.0); MEAN CORPUSCULAR VOLUME 92 fl (80-97); NITRITE,URINE NEGATIVE (NEGATIVE); PLATELET COUNT 205 10^3/uL (150-450); PROTEIN,URINE NEGATIVE (NEGATIVE); RED BLOOD COUNT 4.06 10^6/uL (3.72-5.28); RED CELL DISTRIBUTION WIDTH 12.4 % (11.5-14.0); SEGMENTED NEUTROPHILS % (AUTO) 69.5 % (42-78); TOTAL CELLS COUNTED % (AUTO) 100 %; URINE SPECIFIC GRAVITY 1.012; UROBILINOGEN,URINE NEGATIVE mg/dL (<2.0); WHITE BLOOD COUNT 8.3 10^3/uL (4.0-10.5)
[2020-03-22 14:49] LABS: ALBUMIN 4.5 g/dL (3.5-5.0); ALKALINE PHOSPHATASE 62 U/L (38-126); ANION GAP 7 (5-19); ASPARTATE AMINO TRANSFERASE 17 U/L (14-36); BILIRUBIN,TOTAL 0.3 mg/dL (0.2-1.3); BLOOD UREA NITROGEN 5 mg/dL (7-20); CALCIUM 10.2 mg/dL (8.4-10.2); CARBON DIOXIDE 23 mmol/L (22-30); CHLORIDE 106 mmol/L (98-107); PHOSPHORUS 3.9 mg/dL (2.5-4.5); POTASSIUM 4.2 mmol/L (3.6-5.0); TOTAL PROTEIN 8.1 g/dL (6.3-8.2)
[2020-03-22 15:08] LABS: GLUCOSE 66 mg/dL (75-110)
--- NOTE | 2020-03-22 16:04 | ER Document Report ---
ED Headache - General Chief Complaint: Headache Stated Complaint: DIZZINESS/HEADACHE Time Seen by Provider: 03/22/20 13:34 Primary Care Provider: ZAHEER RAMSEY MD [Primary Care Provider] - Follow up as needed Mode of Arrival: Ambulatory Information source: Patient Notes: 03/22/20 13:38 - Nursing Note by NICOLE VAZQUEZY Acct Num: [id number] : 1995 Patient Age: 25 c/o global [place], pt states complaint started yesterday and has continued to worsening with increased pain behind left eye. pt states left eye blurred vision, pt denies vomiting, denies numbness/tingling, pt is 22wk pg , Pt A/O, pt denies any complaint with pg. S Nancy SENIOR C SOFTWARE DEVELOPER assessing complaint and discussing continued POC with pt my notes 25-year-old female arrives with more than 16 hours of severe left temporal left ocular headache with photophobia. Patient reports she is allergic to morphine and codeine and tramadol. Patient reports she has had fentanyl in the past but usually takes hydrocodone or oxycodone for any problems. She is G3, P2 with ages 7 years old and 4 years old children. First child was delivered well but the fourth child went into premature labor at 29 weeks. Last night while shopping with her fianc at 1630 she began to have acute left temporal and ocular headache which brought her to her knees. She also became quite sweaty and lethargic. She denied any nausea or cough or cold and denies any mann virus contact. She does not usually get headaches. Last night she took 1 g of APAP without resolution of her headache. She denies any history of thyroid disease. Her mother does have thyroid problems she usually has tachycardia and hypertension which has been documented in the past. She usually takes metoprolol 50 mg as needed for tachycardia and in the past has taken nitroglycerin but now she only uses Flexeril and Tylenol because of her . She is 22 weeks gravid at this time and she has had no complications with this . Patient reports she always has cold feet and had cool fingers last night. She denies any history of Raynaud's syndrome. She is not a smoker she is not a drinker. She has never had any diagnosis of Buerger's disease or kidney disease. Patient reports her father had to have a CABG this year at a young age and her grandfather has had surgery for coronary aneurysm. TRAVEL OUTSIDE OF THE [place] IN LAST 30 DAYS: No - HPI Patient complains to provider of: Headache - Related Data Allergies/Adverse Reactions: codeine Allergy (Verified 03/22/20 13:32) morphine Allergy (Verified 03/22/20 13:32) tramadol Allergy (Verified 03/22/20 13:32) ibuprofen Adverse Reaction (Verified 03/22/20 13:32) Past Medical History - General Information source: Patient - Social History Smoking Status: Former Smoker Cigarette use (# per day): No Chew tobacco use (# tins/day): No Smoking Education Provided: No Frequency of alcohol use: None Drug Abuse: None Lives with: Family Family History: None Patient has suicidal ideation: No Patient has homicidal ideation: No - Past Medical History Cardiac Medical History: Denies: Hx Coronary Artery Disease, Hx Heart Attack, Hx Hypertension Pulmonary Medical History: Denies: Hx Asthma, Hx Bronchitis, Hx COPD, Hx Pneumonia Neurological Medical History: Denies: Hx Cerebrovascular Accident, Hx Seizures Renal/ Medical History: Reports: Hx Ovarian Cysts Musculoskeletal Medical History: Denies Hx Arthritis Past Surgical History: Reports: Hx Adenoidectomy, Hx Cholecystectomy, Hx Tonsillectomy - Adenoid removal Review of Systems - Review of Systems Constitutional: No symptoms reported EENT: See HPI, Eye pain, Double vision Cardiovascular: No symptoms reported Respiratory: No symptoms reported Gastrointestinal: No symptoms reported Genitourinary: No symptoms reported Female Genitourinary: No symptoms reported Musculoskeletal: No symptoms reported Skin: No symptoms reported Hematologic/Lymphatic: No symptoms reported Neurological/Psychological: See HPI, Weakness, Headaches Physical Exam - Vital signs Vitals: Temp Pulse BP Pulse Ox 99.2 F 125 H 122/67 100 03/22/20 11:59 03/22/20 11:59 03/22/20 11:59 03/22/20 11:59 Course - Vital Signs Vital signs: Temp Pulse Resp BP Pulse Ox 99.2 F 125 H 16 104/67 98 03/22/20 13:32 03/22/20 11:59 03/22/20 19:00 03/22/20 17:02 03/22/20 19:00 - Laboratory Result Diagrams: 03/22/20 14:00 03/22/20 14:00 Laboratory results interpreted by me: 03/22/20 03/22/20 14:00 14:00 Sodium 136.4 L BUN 5 L Creatinine 0.39 L Glucose 66 L Creatine Kinase < 20 L Beta HCG, Quant 6874.00 H Discharge - Discharge Clinical Impression: Migraine Qualifiers: Migraine type: unspecified Status migrainosus presence: without status migrainosus Intractability: not intractable Qualified Code(s): G43.909 - Migraine, unspecified, not intractable, without status migrainosus Qualifiers: Weeks of gestation: 22 weeks Qualified Code(s): Z3A.22 - 22 weeks gestation of Condition: Good Disposition: HOME, SELF-CARE Instructions: Antinausea Medication ([facility]), Pain Medication Injection ([facility]) Additional Instructions: Follow-up with neurologist for your migraine or cluster headache type condition. Also call your OB doctor this week to alert that you have had a CT scan to your head and the radiation exposure to you and baby. Return to ER as needed take medicines as directed encourage fluids sleep in a dark room until symptoms resolve. Prescriptions: Oxycodone HCl/Acetaminophen [Percocet 5-325 mg Tablet] 1 tab PO BID #10 tablet Promethazine HCl [Phenergan 25 mg Tablet] 1 tab PO Q6H PRN #10 tablet PRN Reason: Referrals: ZAHEER RAMSEY MD [Primary Care Provider] - Follow up as needed
[2020-03-22] MEDS ORDERED: FENTANYL CITRATE INJ/PF 100 MCG/2 ML AMPUL IV PRN (16:10)
[2020-03-22] MEDS ORDERED: PROMETHAZINE HCL INJ 25 MG/1 ML VIAL IV ONE (16:11)
[2020-03-22] MEDS ORDERED: NORMAL SALINE 1000 ML 1,000 ML IV ONE (16:11)
--- NOTE | 2020-03-22 18:05 | RADIOLOGY REPORT (SQ) ---
EXAM DESCRIPTION: CTA HEAD IMAGES COMPLETED DATE/TIME: 03/22/2020 5:46 pm REASON FOR STUDY: worst and only [place] of life COMPARISON: None. TECHNIQUE: Post IV contrast scanning, thin section axial imaging through the brain to evaluate the a rterial structures. Source and MIP images are saved and reviewed on PACS. Advanced 3D imaging as volume-rendering, MIPs, SSD performed? yes All CT scanners at this facility use dose modulation, iterative reconstruction, and/or weight based d osing when appropriate to reduce radiation dose to as low as reasonably achievable (ALARA). [facility]: Dose Right [facility]: CareDose [facility]: Dose Right [facility]: Teradose 4D [facility]: [email or web address] CONTRAST TYPE AND DOSE: 70 mL Omnipaque 350- low osmolar. RENAL FUNCTION: BUN 5; creatinine 0.39 LIMITATIONS: None. FINDINGS: [place]: The anterior, middle, posterior cerebral arteries are all patent. No ev idence of aneurysm or focal stenosis. POSTERIOR CIRCULATION: The distal vertebral arteries are patent as is the basilar artery. No aneurysm . BRAIN: No gross enhancing lesions as visualized. The superior cerebral hemispheres are not included in the field of view. BONES: Intact as visualized. SINUSES: No fluid or mucosal thickening. OTHER: No other significant finding. IMPRESSION: NO CTA EVIDENCE OF STENOSIS OR ANEURYSM OF THE [place]. TECHNICAL DOCUMENTATION: JOB ID: [id number] Quality ID # 436: Final reports with documentation of one or more dose reduction techniques (e.g., Au tomated exposure control, adjustment of the mA and/or kV according to patient size, use of iterative reconstruction technique) 2010 [employer]- All Rights Reserved Reading location - IP/workstation name: [email or web address]
--- NOTE | 2020-03-22 18:12 | RADIOLOGY REPORT (SQ) ---
EXAM DESCRIPTION: CTA NECK IMAGES COMPLETED DATE/TIME: 03/22/2020 5:46 pm REASON FOR STUDY: worst and only [place] of life COMPARISON: None. TECHNIQUE: Axial dynamic scanning technique with dynamic contrast enhancement through the extra-aircraft rigging and controls mechanic nial carotid and vertebral arteries. Multiplanar reconstruction. 3-D MIPS and Volume-rendered imag es acquired at the workstation and saved to PACS. Images are reviewed in soft tissue, bone, lung w indows. All CT scanners at this facility use dose modulation, iterative reconstruction, and/or weight based d osing when appropriate to reduce radiation dose to as low as reasonably achievable (ALARA). [facility]: Dose Right [facility]: CareDose [facility]: Dose Right [facility]: Teradose 4D [facility]: [employer] CONTRAST TYPE AND DOSE: contrast/concentration: Isovue 350.00 mmol/ml; Total Contrast Delivered: 70. 0 ml; Total Saline Delivered: 75.0 ml RENAL FUNCTION: BUN 5; creatinine 0.39 LIMITATIONS: None. FINDINGS: AORTIC ARCH: Normal three-vessel origin. Bilateral subclavian arteries are patent. No d issection. RIGHT CAROTIDS: Patent common, internal and external carotid arteries without suggestion of significa nt stenosis or irregular plaque. No dissection. RIGHT VERTEBRAL: Patent. No dissection. LEFT CAROTIDS: Patent common, internal and external carotid arteries without suggestion of significan t stenosis or irregular plaque. No dissection. LEFT VERTEBRAL: Patent. No dissection. OTHER: Peripheral nodular densities are seen involving the right upper lobe. OTHER: 3-D reconstructions confirm findings. IMPRESSION: NORMAL CTA OF THE EXTRA-CRANIAL CAROTID AND VERTEBRAL ARTERIES. PERIPHERAL NODULAR PULMONARY OPACITIES INVOLVING THE RIGHT UPPER LOBE ARE NONSPECIFIC AND MAY REPRESE NT A DEVELOPING OR RESOLVING AIRSPACE PROCESS. COMMENT: Given history of "worst and only headache of life" , it should be noted that subarachnoid h emorrhage is not excluded due to contrast-enhanced imaging only. Quality ID #[id number]: Measurements of distal internal carotid diameter were used as the denominator for st enosis measurement. TECHNICAL DOCUMENTATION: JOB ID: [id number] Quality ID # 436: Final reports with documentation of one or more dose reduction techniques (e.g., Au tomated exposure control, adjustment of the mA and/or kV according to patient size, use of iterative reconstruction technique) 2010 [employer]- All Rights Reserved Reading location - IP/workstation name: [email or web address]
[2020-03-22 19:30] VITALS: BP 98/66
--- NOTE | 2020-03-22 22:11 | EKG REPORT ---
SEVERITY:- ABNORMAL ECG - JUNCTIONAL TACHYCARDIA ABNORMAL T, CONSIDER ISCHEMIA, DIFFUSE LEADS : Confirmed by: Anamika Norton MD 22-Mar-2020 22:11:06
== END 2020-03-22 19:31 | disposition home or self-care (01) ==
LOC: ER 11:56
DX: O99.352 Diseases of the nervous system complicating pregnancy, second trimester (principal); G43.909 Migraine, unspecified, not intractable, without status migrainosus; O26.892 Other specified pregnancy related conditions, second trimester; H53.8 Other visual disturbances; H53.2 Diplopia; H53.149 Visual discomfort, unspecified; R53.1 Weakness; Z3A.22 22 weeks gestation of pregnancy; Z87.891 Personal history of nicotine dependence; Z79.899 Other long term (current) drug therapy; Z88.6 Allergy status to analgesic agent; Z88.5 Allergy status to narcotic agent
CPT/HCPCS: 93005; 99284; 96361; 96374; 96375; 36415; 82550; 84702; 83735; 84100; 84443; 85025; 80053; 81001; 84484; 70496; 70498; 93010; J3010; J2550; J7030

== ENCOUNTER 2020-04-04 12:28 | Emergency (ER) | payer OTHER ==
--- NOTE | 2020-04-04 13:04 | ER Document Report ---
ED Medical Screen (RME) - General Chief Complaint: Abdominal Pain Stated Complaint: POSSIBLE HERNIA Time Seen by Provider: 04/04/20 12:57 Primary Care Provider: ZAHEER RAMSEY MD [Primary Care Provider] - Follow up as needed Mode of Arrival: Ambulatory Information source: Patient Notes: 5-year-old female presents to ED for periumbilical abdominal pain. She has a small umbilical hernia. She is 24 weeks . This is her third . She states she has never had pain this bad in the umbilical hernia when she was . She states is also much larger than normal. She states it is having very sharp pain and she wants to make sure there is nothing going on with this some the abdominal pain. She states in November she did have a laparoscopic surge ry because they thought she had a ectopic but it was not an ectopic . Patient is alert oriented respirations regular nonlabored speaking in full sentences. His past medical history is cholecystectomy, small vessel disease, tachycardia. I have greeted and performed a rapid initial assessment of this patient. A comprehensive ED assessment and evaluation of the patient, analysis of test results and completion of medical decision making process will be conducted by an additional ED providers. TRAVEL OUTSIDE OF THE [place] IN LAST 30 DAYS: No - Related Data Allergies/Adverse Reactions: codeine Allergy (Verified 03/22/20 13:32) lavender (Lavandula angustifolia) Allergy (Verified 04/04/20 12:57) morphine Allergy (Verified 03/22/20 13:32) peanut Allergy (Verified 04/04/20 12:57) tramadol Allergy (Verified 03/22/20 13:32) ibuprofen Adverse Reaction (Verified 03/22/20 13:32) Past Medical History - Past Medical History Cardiac Medical History: Denies: Hx Coronary Artery Disease, Hx Heart Attack, Hx Hypertension Pulmonary Medical History: Denies: Hx Asthma, Hx Bronchitis, Hx COPD, Hx Pneumonia Neurological Medical History: Denies: Hx Cerebrovascular Accident, Hx Seizures Renal/ Medical History: Reports: Hx Ovarian Cysts Musculoskeltal Medical History: Denies Hx Arthritis Past Surgical History: Reports: Hx Adenoidectomy, Hx Cholecystectomy, Hx Tonsillectomy - Adenoid removal Physical Exam - Vital signs Vitals: Temp Pulse Resp BP Pulse Ox 98.2 F 88 20 115/65 100 04/04/20 12:31 04/04/20 12:31 04/04/20 12:31 04/04/20 12:31 04/04/20 12:31 Course - Vital Signs Vital signs: Temp Pulse Resp BP Pulse Ox 98.2 F 88 20 115/65 100 04/04/20 12:31 04/04/20 12:31 04/04/20 12:31 04/04/20 12:31 04/04/20 12:31 Doctor's Discharge - Discharge Referrals: ZAHEER RAMSEY MD [Primary Care Provider] - Follow up as needed
[2020-04-04 13:25] LABS: ABSOLUTE EOSINOPHILS # (AUTO) 0.1 10^3/uL (0.0-0.6); ABSOLUTE LYMPHOCYTES (AUTO) 1.7 10^3/uL (0.5-4.7); ABSOLUTE MONOCYTES (AUTO) 0.7 10^3/uL (0.1-1.4); ABSOLUTE NEUT (AUTO) 5.2 10^3/uL (1.7-8.2); BASOPHILS % (AUTO) 0.6 % (0-2); HEMATOCRIT 35.9 % (36.0-47.0); HEMOGLOBIN 12.4 g/dL (12.0-15.5); LYMPHOCYTES % (AUTO) 21.8 % (13-45); MEAN CORPUSCULAR HGB CONC 34.7 g/dL (32.0-36.0); MEAN CORPUSCULAR VOLUME 92 fl (80-97); MONOCYTES % (AUTO) 8.6 % (3-13); PLATELET COUNT 225 10^3/uL (150-450); RED BLOOD COUNT 3.89 10^6/uL (3.72-5.28); RED CELL DISTRIBUTION WIDTH 12.6 % (11.5-14.0); TOTAL CELLS COUNTED % (AUTO) 100 %; WHITE BLOOD COUNT 7.7 10^3/uL (4.0-10.5)
[2020-04-04 13:35] LABS: APPEARANCE,URINE SLIGHTLY-CLOUDY; BILIRUBIN,URINE NEGATIVE (NEGATIVE); COLOR,URINE YELLOW; GLUCOSE, URINE NEGATIVE (NEGATIVE); KETONES,URINE TRACE mg/dL (NEGATIVE); LEUKOCYTE ESTERASE,URINE NEGATIVE (NEGATIVE); NITRITE,URINE NEGATIVE (NEGATIVE); PROTEIN,URINE NEGATIVE (NEGATIVE); UROBILINOGEN,URINE NEGATIVE mg/dL (<2.0)
[2020-04-04 13:51] LABS: ALKALINE PHOSPHATASE 53 U/L (38-126); ANION GAP 6 (5-19); ASPARTATE AMINO TRANSFERASE 16 U/L (14-36); BILIRUBIN,TOTAL 0.3 mg/dL (0.2-1.3); BLOOD UREA NITROGEN 9 mg/dL (7-20); CALCIUM 9.6 mg/dL (8.4-10.2); CARBON DIOXIDE 25 mmol/L (22-30); CHLORIDE 102 mmol/L (98-107); GLUCOSE 73 mg/dL (75-110); POTASSIUM 4.4 mmol/L (3.6-5.0)
[2020-04-04] MEDS ORDERED: OXYCODONE-ACETAMINOPHEN 5-325 MG TABLET PO ONE (17:06)
--- NOTE | 2020-04-04 17:06 | ER Document Report ---
ED General - General Chief Complaint: Abdominal Pain Stated Complaint: POSSIBLE HERNIA Time Seen by Provider: 04/04/20 12:57 Primary Care Provider: ZAHEER RAMSEY MD [Primary Care Provider] - Follow up as needed Mode of Arrival: Ambulatory TRAVEL OUTSIDE OF THE [place] IN LAST 30 DAYS: No - HPI Notes: Patient is a 25-year-old female coming to the emergency department for evaluation of increased pain around her umbilical hernia. She is a G3, P2 at approximately 24 weeks . She states that now everything she eats she gets nausea and severe pain around her umbilical hernia. She admits that when she lies down it reduces easily. She is still moving her bowels. She has had some nausea associated with pain but no vomiting. She is still urinating. - Related Data Allergies/Adverse Reactions: codeine Allergy (Verified 03/22/20 13:32) lavender (Lavandula angustifolia) Allergy (Verified 04/04/20 12:57) morphine Allergy (Verified 03/22/20 13:32) peanut Allergy (Verified 04/04/20 12:57) tramadol Allergy (Verified 03/22/20 13:32) ibuprofen Adverse Reaction (Verified 03/22/20 13:32) Home Medications: . Tylenol. Metoprolol prn. flexiril prn Past Medical History - General Information source: Patient - Social History Smoking Status: Never Smoker Family History: Hypertension, Thyroid Disfunction - Past Medical History Cardiac Medical History: Reports: Other - Tachycardia and small vessel disease Denies: Hx Coronary Artery Disease, Hx Heart Attack, Hx Hypertension Pulmonary Medical History: Denies: Hx Asthma, Hx Bronchitis, Hx COPD, Hx Pneumonia Neurological Medical History: Denies: Hx Cerebrovascular Accident, Hx Seizures Renal/ Medical History: Reports: Hx Ovarian Cysts Musculoskeletal Medical History: Denies Hx Arthritis Past Surgical History: Reports: Hx Adenoidectomy, Hx Cholecystectomy, Hx Tonsillectomy - Adenoid removal Review of Systems - Review of Systems Gastrointestinal: See HPI Female Genitourinary: See HPI -: Yes All other systems reviewed and negative Physical Exam - Vital signs Vitals: Temp Pulse Resp BP Pulse Ox 98.2 F 88 20 115/65 100 04/04/20 12:31 04/04/20 12:31 04/04/20 12:31 04/04/20 12:31 04/04/20 12:31 - Notes Notes: Is a 25-year-old female appears her stated age, no acute distress. Vital signs reviewed, please refer to chart. Head is normocephalic, atraumatic. Pupils equal round, reactive to light. Neck is supple without meningismus. Heart is regular rate and rhythm. Lungs are clear to auscultation bilaterally. Abdomen is gravid. Small umbilical hernia noted, reduces with pressure, although this does elicit some pain from the patient.. Extremities without cyanosis, clubbing. Posterior calves are nontender. Peripheral pulses are equal. Skin is warm and dry. Patient is awake, alert, neurological exam is nonfocal. Course - Re-evaluation Re-evalutation: 04/04/20 17:10 Patient presents to the emergency department for evaluation. She has increased pain from an umbilical hernia. She is . She denies any vaginal bleeding or discharge. She is still feeling the baby move. I gave her 1 Percocet here. She actually received a prescription for Percocet earlier this month. I do not feel comfortable sending her home with more narcotics. The patient notes she had some sort of procedure by Dr. Barth to help her with umbilical hernia pain earlier in her . He happens to be on-call today. I will reach out to him for further discussion of this patient. 04/04/20 18:31 I went back in to evaluate the patient. Her hernia had reduced significantly. There may be a small remaining aspect of this hernia, but it is fat-containing if anything. I discussed this with Dr. Barth, who agrees there is no further indication for any intervention at this time. Patient is to continue her Tylenol at home and follow-up with OB. Return to the ED with worsening. - Vital Signs Vital signs: Temp Pulse Resp BP Pulse Ox 98.2 F 88 20 115/65 100 04/04/20 12:31 04/04/20 12:31 04/04/20 12:31 04/04/20 12:31 04/04/20 12:31 - Laboratory Result Diagrams: 04/04/20 13:15 04/04/20 13:15 Laboratory results interpreted by me: 04/04/20 04/04/20 04/04/20 13:15 13:15 13:15 Hct 35.9 L Sodium 132.9 L Creatinine 0.43 L Glucose 73 L Urine Ketones TRACE H Discharge - Discharge Clinical Impression: Abdominal pain affecting , Umbilical hernia without obstruction and without gangrene Condition: Stable Disposition: HOME, SELF-CARE Instructions: Abdominal Pain ([facility]), Umbilical Hernia ([facility]) Additional Instructions: Tylenol as needed for pain. Continue to wear abdominal wall support. Follow-up with your OB this week. Return to the ED with worsening or new concerning symptoms of any sort. Referrals: ZAHEER RAMSEY MD [Primary Care Provider] - Follow up as needed
[2020-04-04 18:39] VITALS: BP 118/64
== END 2020-04-04 18:39 | disposition home or self-care (01) ==
LOC: ER 12:28
DX: O99.619 Diseases of the digestive system complicating pregnancy, unspecified trimester (principal); K42.9 Umbilical hernia without obstruction or gangrene; O26.899 Other specified pregnancy related conditions, unspecified trimester; R10.33 Periumbilical pain; R11.0 Nausea; Z79.899 Other long term (current) drug therapy; Z3A.00 Weeks of gestation of pregnancy not specified; Z88.6 Allergy status to analgesic agent; Z88.5 Allergy status to narcotic agent; Z91.048 Other nonmedicinal substance allergy status; Z91.010 Allergy to peanuts
CPT/HCPCS: 36415; 80053; 81001; 85025; 99284

== ENCOUNTER 2020-05-04 22:53 | Emergency (ER) | payer OTHER ==
--- NOTE | 2020-05-04 23:11 | ER Document Report ---
ED Medical Screen (RME) - General Chief Complaint: Numbness of Arm Stated Complaint: HEADACHE,LEFT ARM NUBNESS/FACE NUMBNESS Time Seen by Provider: 05/04/20 23:08 Primary Care Provider: ZAHEER RAMSEY MD [Primary Care Provider] - Follow up as needed Mode of Arrival: Ambulatory Information source: Patient Notes: HPI; 25-year-old female 28 weeks presents emergency room with sudden onset of left arm numbness that started around 6 PM. Has a history of microvascular disease states she tried taking Tylenol taking a shower states the numbness progressed to the left side of her face and now has a severe left-sided headache. Denies any trauma or injury. PE: Alert and oriented x3. Right-sided tongue deviation. Mild right facial droop which when smiling. Decreased sensation to painful stimuli on the left side of her face, left arm. 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 Charge nurse notified of stroke alert. Stroke alert protocol ordered. I have greeted and performed a rapid initial assessment of this patient. A comprehensive ED assessment and evaluation of the patient, analysis of test results and completion of the medical decision making process will be conducted by additional ED providers. I have specifically instructed the patient or family members with the patient to immediately return to any nursing staff should anything change in the patient's condition or with their chief complaint. TRAVEL OUTSIDE OF THE [place] IN LAST 30 DAYS: No - Related Data Allergies/Adverse Reactions: codeine Allergy (Verified 03/22/20 13:32) lavender (Lavandula angustifolia) Allergy (Verified 04/04/20 12:57) morphine Allergy (Verified 03/22/20 13:32) peanut Allergy (Verified 04/04/20 12:57) tramadol Allergy (Verified 03/22/20 13:32) ibuprofen Adverse Reaction (Verified 03/22/20 13:32) Home Medications: metoprolol. flexeril. vistaril Past Medical History - Social History Chew tobacco use (# tins/day): No Frequency of alcohol use: None Drug Abuse: None - Past Medical History Cardiac Medical History: Denies: Hx Coronary Artery Disease, Hx Heart Attack, Hx Hypertension Pulmonary Medical History: Denies: Hx Asthma, Hx Bronchitis, Hx COPD, Hx Pneumonia Neurological Medical History: Denies: Hx Cerebrovascular Accident, Hx Seizures Renal/ Medical History: Reports: Hx Ovarian Cysts Musculoskeltal Medical History: Denies Hx Arthritis Past Surgical History: Reports: Hx Adenoidectomy, Hx Cholecystectomy, Hx Tonsillectomy - Adenoid removal Physical Exam - Vital signs Vitals: Temp Pulse Resp BP Pulse Ox 97.8 F 86 14 103/43 L 100 05/04/20 22:57 05/04/20 22:57 05/04/20 22:57 05/04/20 22:57 05/04/20 22:57 Course - Vital Signs Vital signs: Temp Pulse Resp BP Pulse Ox 97.8 F 86 14 103/43 L 100 05/04/20 23:01 05/04/20 22:57 05/04/20 22:57 05/04/20 22:57 05/04/20 22:57 Doctor's Discharge - Discharge Referrals: ZAHEER RAMSEY MD [Primary Care Provider] - Follow up as needed
[2020-05-04 23:43] LABS: INTERNATIONAL RATION (INR) 0.91
[2020-05-04 23:44] LABS: PARTIAL THROMBOPLASTIN TIME 25.7 SEC (23.5-35.8)
[2020-05-04 23:47] LABS: ABSOLUTE EOSINOPHILS # (AUTO) 0.1 10^3/uL (0.0-0.6); ABSOLUTE MONOCYTES (AUTO) 0.7 10^3/uL (0.1-1.4); ABSOLUTE NEUT (AUTO) 5.3 10^3/uL (1.7-8.2); BASOPHILS % (AUTO) 0.4 % (0-2); EOSINOPHILS % (AUTO) 1.1 % (0-6); HEMATOCRIT 36.7 % (36.0-47.0); HEMOGLOBIN 12.6 g/dL (12.0-15.5); LYMPHOCYTES % (AUTO) 24.4 % (13-45); MEAN CORPUSCULAR HEMOGLOBIN 31.5 pg (27.0-33.4); MEAN CORPUSCULAR HGB CONC 34.4 g/dL (32.0-36.0); MEAN CORPUSCULAR VOLUME 92 fl (80-97); PLATELET COUNT 213 10^3/uL (150-450); RED BLOOD COUNT 4.01 10^6/uL (3.72-5.28); SEGMENTED NEUTROPHILS % (AUTO) 65.1 % (42-78); TOTAL CELLS COUNTED % (AUTO) 100 %; WHITE BLOOD COUNT 8.2 10^3/uL (4.0-10.5)
[2020-05-04 23:51] LABS: PROTHROMBIN TIME 12.4 SEC (11.4-15.4)
--- NOTE | 2020-05-04 23:57 | RADIOLOGY REPORT (SQ) ---
EXAM DESCRIPTION: X-RAY CHEST- One View CLINICAL HISTORY: Numbness COMPARISON: None available TECHNIQUE: Single view of the chest. FINDINGS: Patient's undergarment partially obscures this evaluation. There are no discrete air space infiltrates, pneumothoraces or pleural effusions. The pulmonary vascularity is normal. The cardiomediastinal silhouette is normal in size. No suspicious lytic or blastic osseous lesions are identified. The patient's upper abdomen is shielded and this partially obscures the left costophrenic angle. IMPRESSION: There are no acute lung parenchymal findings.
--- NOTE | 2020-05-05 00:01 | RADIOLOGY REPORT (SQ) ---
EXAM DESCRIPTION: Noncontrast CT head CLINICAL HISTORY: 25 years Female numbness TECHNIQUE: Noncontrast CT head. All CT scans at this facility use dose modulation, iterative reconstruction, and/or weight based dosing when appropriate to reduce radiation dose to as low as reasonably achievable. COMPARISON: None. FINDINGS: Seymour matter, white matter, ventricles, and cisterns are within normal limits. No acute hemorrhage or mass effect. Visualized portions of paranasal sinuses and mastoids are clear. Visualized portions of the calvarium are within normal limits. IMPRESSION: 1. No acute intracranial findings. If there is continued clinical concern for acute intracranial process, such as stroke, MRI should be considered as a more sensitive evaluation.
[2020-05-05 00:10] LABS: ALBUMIN 4.1 g/dL (3.5-5.0); ALKALINE PHOSPHATASE 63 U/L (38-126); ANION GAP 9 (5-19); ASPARTATE AMINO TRANSFERASE 16 U/L (14-36); BILIRUBIN,TOTAL 0.3 mg/dL (0.2-1.3); BLOOD UREA NITROGEN 9 mg/dL (7-20); CALCIUM 9.2 mg/dL (8.4-10.2); CARBON DIOXIDE 24 mmol/L (22-30); CHLORIDE 105 mmol/L (98-107); CREATINE KINASE 22 U/L (30-135); GLUCOSE 84 mg/dL (75-110); POTASSIUM 4.1 mmol/L (3.6-5.0); TOTAL PROTEIN 7.4 g/dL (6.3-8.2)
[2020-05-05 00:24] LABS: CREATINE KINASE MB < 0.22 ng/mL (<4.55); TROPONIN I < 0.012 ng/mL
[2020-05-05] MEDS ORDERED: HYDROMORPHONE HCL INJ/PF 2 MG/ML AMPULE IV ONE (00:24)
[2020-05-05] MEDS ORDERED: NORMAL SALINE 1000 ML 1,000 ML IV ONE (00:25)
[2020-05-05] MEDS ORDERED: METOCLOPRAMIDE HCL INJ/PF 10 MG/2 ML SDV IV ONE (00:25)
--- NOTE | 2020-05-05 00:36 | ER Document Report ---
Entered by CARYL BAKER SCRIBE 05/05/20 0017 Acting as scribe for:TERRY ZAMORA IV, MD ED General - General Chief Complaint: Numbness of Arm Stated Complaint: HEADACHE,LEFT ARM NUBNESS/FACE NUMBNESS Time Seen by Provider: 05/04/20 23:08 Primary Care Provider: ZAHEER RAMSEY MD [Primary Care Provider] - Follow up as needed Mode of Arrival: Ambulatory Information source: Patient Notes: This 25 year old female patient, currently x28 weeks presents to the ED today with complaints of LUE numbness that started around 1800 this evening. Patient states that she has a history of microvascular disease and that when usually develops this numbness, her heart rate spikes and she would take Metoprolol which would resolve the symptoms. She reports that tonight, that didn't happen and the numbness actually progressed to the left side of her face. She mentions that after a shower and taking Tylenol, she developed swelling under her left eye and a left-sided headache with pain/pressure behind her left eye. She denies history of migraines, but states that she was seen here with a similar complaint about a month ago and was diagnosed with a migraine. At that time, she was sent home with pain and nausea medications and hasn't had a migraine until now. Denies any other complaints. TRAVEL OUTSIDE OF THE [place] IN LAST 30 DAYS: No - Related Data Allergies/Adverse Reactions: codeine Allergy (Verified 03/22/20 13:32) lavender (Lavandula angustifolia) Allergy (Verified 04/04/20 12:57) morphine Allergy (Verified 03/22/20 13:32) peanut Allergy (Verified 04/04/20 12:57) tramadol Allergy (Verified 03/22/20 13:32) ibuprofen Adverse Reaction (Verified 03/22/20 13:32) Home Medications: metoprolol. flexeril. vistaril Past Medical History - General Information source: Patient - Social History Smoking Status: Never Smoker Cigarette use (# per day): No Chew tobacco use (# tins/day): No Smoking Education Provided: No Frequency of alcohol use: None Drug Abuse: None Family History: Reviewed & Not Pertinent, Hypertension, Thyroid Disfunction Patient has suicidal ideation: No Patient has homicidal ideation: No Renal/ Medical History: Reports: Hx Ovarian Cysts Past Surgical History: Reports: Hx Adenoidectomy, Hx Cholecystectomy, Hx Tonsillectomy Review of Systems - Review of Systems Constitutional: No symptoms reported EENT: See HPI, Eye pain Cardiovascular: No symptoms reported Respiratory: No symptoms reported Gastrointestinal: No symptoms reported Genitourinary: No symptoms reported Female Genitourinary: See HPI, Musculoskeletal: No symptoms reported Skin: No symptoms reported Hematologic/Lymphatic: No symptoms reported Neurological/Psychological: See HPI, Headaches, Numbness -: Yes All other systems reviewed and negative Physical Exam - Vital signs Vitals: Temp Pulse Resp BP Pulse Ox 97.8 F 86 14 103/43 L 100 05/04/20 22:57 05/04/20 22:57 05/04/20 22:57 05/04/20 22:57 05/04/20 22:57 - General General appearance: Appears well, Alert In distress: None - HEENT Head: Normocephalic, Atraumatic Eyes: Normal Extraocular movements intact: Yes Pupils: PERRL - Respiratory Respiratory status: No respiratory distress Chest status: Nontender Breath sounds: Normal Chest palpation: Normal - Cardiovascular Rhythm: Regular Heart sounds: Normal auscultation Murmur: No Friction rub: No Gallop: None auscultated - Abdominal Inspection: Normal Distension: No distension Bowel sounds: Normal Tenderness: Nontender - Abdomen soft Organomegaly: No organomegaly - Back Back: Normal, Nontender - Extremities General upper extremity: Normal inspection General lower extremity: Normal inspection - Neurological Neuro grossly intact: Yes Orientation: AAOx4 [place] Coma Scale Eye Opening: Spontaneous [place] Coma Scale Verbal: Oriented Ruth Coma Scale Motor: Obeys Commands Ruth Coma Scale Total: 15 - Psychological Associated symptoms: Normal affect, Normal mood - Skin Skin Temperature: Warm Skin Moisture: Dry Skin Color: Normal Course - Re-evaluation Re-evalutation: 05/05/20 02:14 Patient states she is feeling better and is ready to be discharged home. Results of ED MSE discussed with patient. All questions were answered. Emergency signs and symptoms, reasons to return to the emergency department discussed with patient. 05/05/20 02:16 Patient states she is going to contact her [employer] on 05/06/2020 to arrange for referral to a neurologist for her migraines/migraine variant symptoms. - Vital Signs Vital signs: Temp Pulse Resp BP Pulse Ox 97.8 F 81 17 113/65 100 05/04/20 23:01 05/04/20 23:25 05/05/20 00:00 05/05/20 00:00 05/05/20 00:00 - Laboratory Result Diagrams: 05/04/20 23:29 05/04/20 23:29 Laboratory results interpreted by me: 05/04/20 23:29 Creatinine 0.45 L Creatine Kinase 22 L - Diagnostic Test Radiology reviewed: Reports reviewed - EKG Interpretation by Me Additional EKG results interpreted by me: 05/05/20 02:14 EKG obtained on 05/05/2020 at 00 19 hours was interpreted by this MD. Findings: Normal sinus rhythm, rate 96, normal axis, P waves proceed QRS complexes, QRS complexes appear narrow, there are no obvious patterns of ST segment elevation or depression present to suggest acute myocardial ischemia or infarction. Impression: Normal sinus rhythm with nonspecific ST segments. Discharge - Discharge Clinical Impression: Migraine variant Condition: Stable Disposition: HOME, SELF-CARE Instructions: Oral Narcotic Medication ([facility]), Antinausea Medication ([facility]) Additional Instructions: Return to the Emergency Department without delay if any worse. HOME CARE INSTRUCTIONS & INFORMATION: Thank you for choosing us for your medical needs. We hope you're satisfied with the care you received. After you leave, you must properly care for your problem and, at the same time, observe its progress. Any condition can change. Some illnesses can change rapidly over hours or days. If your condition worsens, return to the Emergency Department or see your physician promptly. ABOUT YOUR X-RAYS AND EKG'S: If you had an EKG or X-rays taken, they have been read by the Emergency Physician. The X-rays and EKG's will also be read by a Radiologist or Claims Processor within 24 hours. If discrepancies are noted, you will be notified by telephone. Please be certain the ED has a correct telephone number & address where you can be reached. Also, realize that some fractures or abnormalities do not show up on initial X-rays. If your symptoms continue, see your physician. ABOUT YOUR LABORATORY TEST: If you had laboratory tests, the results have been reviewed by the Emergency Physician. Some test results (for example cultures) may not be available for several days. You will be contacted if any test result shows you need additional treatment. Please be certain the ED has a correct telephone number and address where you can be reached. ABOUT YOUR MEDICATIONS: You will receive instructions on how to take your medicine on the prescription label you receive. Additional information may be provided by the Pharmacy. If you have questions afterwards, call the ED for clarification or further instructions. Some prescribed medications may cause drowsiness. Do not perform tasks such as driving a car or operating machinery without consulting your Pharmacist. If you feel you need a refill of pain medication, your condition will need re-evaluation. Please do not call for a refill of any medication. ABOUT YOUR SIGNATURE: Signature of this document acknowledges to followin. Understanding that you received emergency treatment and that you may be released before al medical problems are known or treated. Please be certain the ED has a correct phone number & address where you can be reached. 2. Acknowledgement that you will arrange for follow-up care as recommended. 3. Authorization for the Emergency Physician to provide information to your follow-up Physician in order to maximize your care. AT ANY TIME, IF YOUR SYMPTOMS CHANGE SIGNIFICANTLY OR WORSEN OR YOU DEVELOP NEW SYMPTOMS, RETURN TO THE EMERGENCY DEPARTMENT IMMEDIATELY FOR RE-EVALUATION. OUR GOAL IS TO PROVIDE EXCELLENT MEDICAL CARE! WE HOPE THAT WE HAVE MET YOUR EXPECTATIONS DURING YOUR EMERGENCY DEPARTMENT VISIT AND THAT YOU FEEL YOU HAVE RECEIVED EXCELLENT CARE! Migraine Headache The physician feels that your symptoms are due to a migraine attack. Migraines are caused by changes in the blood vessels of the head. Arteries go into spasm, often causing warning symptoms that a headache may begin soon. As the spasm goes away, the vessels dilate and throb, causing the pounding pain of a migraine headache. Migraines often cause nausea and vomiting. The treatment of headaches varies with severity and cause of pain. Not all headaches need pain shots -- in fact, there is evidence that using narcotics for headaches may make them worse in the long run. The physician will determine the therapy that's in your best interest for this particular headache. Medications are available that may prevent migraines, or stop them as they first occur. If one medication is not helpful, try another. If migraines are frequent, be patient -- follow the doctor's recommendations. Call the physician if you are worsening, or if new symptoms arise. Referrals: ZAHEER RAMSEY MD [Primary Care Provider] - Follow up as needed I personally performed the services described in the documentation, reviewed and edited the documentation which was dictated to the scribe in my presence, and it accurately records my words and actions.
[2020-05-05] MEDS ORDERED: HYDROCODONE/ACETAMINOPHEN 5-325 MG (6 TAB/ER DISP) PO PRN (02:17)
[2020-05-05] MEDS ORDERED: ONDANSETRON 4 MG TAB.RAPDIS PO ONE (02:18)
[2020-05-05] MEDS ORDERED: ONDANSETRON ODT 4 MG TAB (6 TAB/ER DISP) PO PRN (03:18)
[2020-05-05 03:32] VITALS: BP 115/75
--- NOTE | 2020-05-05 08:28 | EKG REPORT ---
SEVERITY:- NORMAL ECG - SINUS RHYTHM : Confirmed by: Len Wray MD 05-May-2020 08:28:07
== END 2020-05-05 03:35 | disposition home or self-care (01) ==
LOC: ER 22:53
DX: O99.353 Diseases of the nervous system complicating pregnancy, third trimester (principal); G43.909 Migraine, unspecified, not intractable, without status migrainosus; O26.893 Other specified pregnancy related conditions, third trimester; R20.0 Anesthesia of skin; H57.10 Ocular pain, unspecified eye; Z3A.28 28 weeks gestation of pregnancy; Z79.899 Other long term (current) drug therapy; Z88.6 Allergy status to analgesic agent; Z88.5 Allergy status to narcotic agent; Z91.048 Other nonmedicinal substance allergy status; Z91.010 Allergy to peanuts
CPT/HCPCS: 93005; 99285; 96361; 96374; 96375; 36415; 82553; 82550; 85025; 85610; 85730; 80053; 84484; 71045; 70450; 93010; J2765; J1170; J7030

== ENCOUNTER 2020-06-15 23:51 | Emergency (ER) | payer OTHER ==
[2020-06-16] MEDS ORDERED: FENTANYL CITRATE INJ/PF 100 MCG/2 ML AMPUL IV ONE (01:30)
[2020-06-16] MEDS ORDERED: PROMETHAZINE HCL INJ 25 MG/1 ML VIAL IV ONE (01:30)
--- NOTE | 2020-06-16 01:36 | ER Document Report ---
ED General - General Mode of Arrival: Ambulatory Information source: Patient TRAVEL OUTSIDE OF THE U.S. IN LAST 30 DAYS: No - HPI Onset: This evening Onset/Duration: Sudden, Persistent, Worse <SINDY PAULINO JR - Last Filed: 06/16/20 01:51> - General Information source: Patient TRAVEL OUTSIDE OF THE [place].S. IN LAST 30 DAYS: No - HPI Onset: This evening Onset/Duration: Sudden, Persistent, Worse Quality of pain: Sharp Severity: Severe Pain Level: 5 Associated symptoms: Other - See HPI Exacerbated by: Other - See HPI Relieved by: Other - See HPI <TERRY STARK IV - Last Filed: 06/16/20 05:34> - General Chief Complaint: Possible Kidney Stone Stated Complaint: POSSIBLE KIDNEY STONES Time Seen by Provider: 06/16/20 01:30 Primary Care Provider: ZAHEER RAMSEY MD [Primary Care Provider] - Follow up as needed Notes: per Discharge Date: 11/24/19 - Assessment Summary: 24yo at 5+0ega by LMP presented from the office with unknown location of and abdominal pain. She was seen in the ER several times on 11/17 (BHCG was 81) then approx 15 hours later in ER again BHCG on (BHCG was 89) and then on 11/22 (BHCG was 556). On 11/19 in the office BHCG was 200. Since she was in significant pain patient was offered diagostic laparoscopy for r/o ectopic. Surgery was uncomplicated and no e/o ectopic only right corpus luteum cyst. Today BHCG is now 725 and more c/w probable early IUP. Reviewed with patient technically still unknown location of and ectopic precautions given. The following was last ER visit 1 month ago Entered by CARYL BAKER SCRIBE 05/05/20 0017 Acting as scribe for:TERRY STARK IV, MD ED General - General Chief Complaint: Numbness of Arm Stated Complaint: HEADACHE,LEFT ARM NUBNESS/FACE NUMBNESS Time Seen by Provider: 05/04/20 23:08 Primary Care Provider: ZAHEER RAMSEY MD [Primary Care Provider] - Follow up as needed Mode of Arrival: Ambulatory Information source: Patient Notes: This 25 year old female patient, currently x28 weeks presents to the ED today with complaints of LUE numbness that started around 1800 this evening. Patient states that she has a history of microvascular disease and that when usually develops this numbness, her heart rate spikes and she would take Metoprolol which would resolve the symptoms. She reports that tonight, that didn't happen and the numbness actually progressed to the left side of her face. She mentions that after a shower and taking Tylenol, she developed swelling under her left eye and a left-sided headache with pain/pressure behind her left eye. She denies history of migraines, but states that she was seen here with a similar complaint about a month ago and was diagnosed with a migraine. At that time, she was sent home with pain and nausea medications and hasn't had a migraine until now. Denies any other complaints. MY NOTES TODAY 25-year-old female who is 34 weeks gravid G3, P2 arrives with severe flank pain bilaterally. Pain is 10/10. She had stents placed 3 weeks ago . Because of severe pain walking to her room in bed 12(she reported that she would prefer to walk because sitting down increases pain in her flank to staff.) I examined this patient upon patient arrival to room with VICENTE Rosenberg. She has a ballotable baby's head with cervix fingertip only. Patient denies any pelvic contractions because of baby. She advises she is taking Oxycodone 10 mg every 4 hours as well as Pyridium. Patient has a prior history of PID UTI migraines abdominal pains. (SINDY PAULINO JR) - Related Data Allergies/Adverse Reactions: codeine Allergy (Verified 03/22/20 13:32) lavender (Lavandula angustifolia) Allergy (Verified 04/04/20 12:57) morphine Allergy (Verified 03/22/20 13:32) peanut Allergy (Verified 04/04/20 12:57) tramadol Allergy (Verified 03/22/20 13:32) ibuprofen Adverse Reaction (Verified 03/22/20 13:32) Past Medical History - General Information source: Patient - Social History Cigarette use (# per day): No Chew tobacco use (# tins/day): No Smoking Education Provided: No Frequency of alcohol use: None Drug Abuse: None Lives with: Alone Family History: Reviewed & Not Pertinent, Hypertension, Thyroid Disfunction Patient has suicidal ideation: No Patient has homicidal ideation: No - Past Medical History Cardiac Medical History: Denies: Hx Coronary Artery Disease, Hx Heart Attack, Hx Hypertension Pulmonary Medical History: Denies: Hx Asthma, Hx Bronchitis, Hx COPD, Hx Pneumonia Neurological Medical History: Denies: Hx Cerebrovascular Accident, Hx Seizures Renal/ Medical History: Reports: Hx Ovarian Cysts Musculoskeletal Medical History: Denies Hx Arthritis Past Surgical History: Reports: Hx Adenoidectomy, Hx Cholecystectomy, Hx Tonsillectomy <SINDY PAULINO JR - Last Filed: 06/16/20 01:51> - General Information source: Patient - Social History Smoking Status: Unknown if Ever Smoked Family History: Reviewed & Not Pertinent <TERRY STARK IV - Last Filed: 06/16/20 05:34> Review of Systems - Review of Systems Constitutional: No symptoms reported EENT: No symptoms reported Cardiovascular: No symptoms reported Respiratory: No symptoms reported Gastrointestinal: No symptoms reported Genitourinary: See HPI, Dysuria, Flank pain, Urgency Female Genitourinary: See HPI, Musculoskeletal: No symptoms reported Skin: No symptoms reported Hematologic/Lymphatic: No symptoms reported Neurological/Psychological: No symptoms reported <SINDY PAULINO JR - Last Filed: 06/16/20 01:51> - Review of Systems Constitutional: No symptoms reported EENT: No symptoms reported Cardiovascular: No symptoms reported Respiratory: No symptoms reported Gastrointestinal: No symptoms reported Genitourinary: See HPI Female Genitourinary: Musculoskeletal: No symptoms reported Skin: No symptoms reported Hematologic/Lymphatic: No symptoms reported Neurological/Psychological: No symptoms reported -: Yes All other systems reviewed and negative <TERRY STARK IV - Last Filed: 06/16/20 05:34> Physical Exam - Vital signs Interpretation: Normal - General General appearance: Anxious - HEENT Head: Normocephalic, Atraumatic Eyes: Normal Pupils: PERRL Sinus: Normal - She is doing Nasal: Normal Mouth/Lips: Normal Mucous membranes: Normal Pharynx: Normal Neck: Normal - Respiratory Respiratory status: No respiratory distress Chest status: Nontender Breath sounds: Normal Chest palpation: Normal - Cardiovascular Rhythm: Regular Heart sounds: Normal auscultation Murmur: No - Abdominal Inspection: Gravid female Distension: No distension Bowel sounds: Normal Tenderness: Tender - Bilateral flank Organomegaly: No organomegaly - Rectal Tenderness: No Hemorrhoids: None - Genitourinary External exam: Normal Bimanuel exam: Other - I examined this patient with Shakira ZHANG and patient had no cervical motion tenderness and was fingertip cervical dilation with ballotable head of baby. - Back Back: CVA tenderness - Bilateral CVA tenderness percussion - Extremities General upper extremity: Normal inspection, Nontender, Normal color, Normal ROM, Normal temperature General lower extremity: Normal inspection, Nontender, Normal color, Normal ROM, Normal temperature, Normal weight bearing. No: Stalin's sign - Neurological Neuro grossly intact: Yes Cognition: Normal Orientation: AAOx4 Ruth Coma Scale Eye Opening: Spontaneous Ruth Coma Scale Verbal: Oriented Closplint Coma Scale Motor: Obeys Commands Ruth Coma Scale Total: 15 Speech: Normal Motor strength normal: LUE, RUE, LLE, RLE Sensory: Normal - Psychological Associated symptoms: Anxious - Skin Skin Temperature: Warm Skin Moisture: Dry <SINDY PAULINO JR - Last Filed: 06/16/20 01:51> <TERRY STARK IV - Last Filed: 06/16/20 05:34> - Vital signs Vitals: Temp Pulse Resp BP Pulse Ox 97.8 F 86 20 110/96 H 96 06/16/20 00:20 06/16/20 00:20 06/16/20 00:20 06/16/20 00:20 06/16/20 00:20 - Notes Notes: CONSTITUTIONAL [Vital signs reviewed, Patient appears comfortable, Alert and oriented X 3, Normal stature.] HEAD [Atraumatic, Normocephalic.] EYES [Eyes are normal to inspection, No discharge from eyes, Extraocular muscles intact, Sclera are normal, Conjunctiva are normal.] NEURO [No focal motor deficits, No focal sensory deficits, Speech normal.] SKIN [Skin is warm, Skin is dry, Skin is normal color.] LYMPHATIC [No adenopathy in neck.] PSYCHIATRIC [Normal affect. ] (TERRY STARK IV) Course - Laboratory Result Diagrams: 06/16/20 01:35 06/16/20 01:35 <SINDY PAULINO JR - Last Filed: 06/16/20 01:51> - Laboratory Result Diagrams: 06/16/20 01:35 06/16/20 01:35 - Diagnostic Test Radiology reviewed: Reports reviewed <TERRY STARK IV - Last Filed: 06/16/20 05:34> - Re-evaluation Re-evalutation: 06/16/20 04:17 Results of ED MSE discussed with patient. Findings on CT scan hydronephrosis and hydroureter and current J stent placement discussed with patient. Patient states she had this procedure done in [place]. Patient was quick to say that they "will not touch me at [facility] until I am done with my ." This MD discussed with the patient that options for any acute intervention or limited at this time then. Patient apparently gets the majority of her care at [facility]. Patient has having her care done at [facility]. Patient reports that her BEEF CATTLE FARMER is trying to get her in with a pain management clinic. This MD referred to the [place] controlled substance database and found that the patient has the foll owing Narc's scores: Narcotic 501, sedative 260, stimulant 0. Overdose risk score is 750 with the range being 0-999. Patient was prescribed 5 mg oxycodone tablets on 05/24/2020 (total of 18 tablets),. Patient was prescribed oxycodone 5 mg tablets (total of 24 tablets) again on 05/27/2020. Patient was then prescribed oxycodone acetaminophen 5 325 tablets (total of 26) on 05/29/2020. Patient was prescribed oxycodone 10 mg tablets (total of 18) on 06/01/2020. Patient was also prescribed oxycodone 10 mg tablets (18 tablets total) again on 06/01/2020. On 06/06/2020 patient was prescribed oxycodone 10 mg tablets (13 tablets total). And as of 06/08/2020, which is now 8 days ago patient was prescribed oxycodone 10 mg tablets (total of 40 tablets) which was listed as a 10-day supply. Patient states that she still has 8-10 of those tablets left. This MD recommended that the patient use the narcotic prescription that she has to help manage her pain until she can be seen by her [facility] tomorrow, 06/16/2020 to reassess her pain needs until she is seen at the pain clinic on Wednesday for her appointment. (TERRY STARK IV) - Vital Signs Vital signs: Temp Pulse Resp BP Pulse Ox 97.9 F 70 16 115/71 99 06/16/20 04:38 06/16/20 04:38 06/16/20 04:38 06/16/20 04:38 06/16/20 04:38 - Laboratory Laboratory results interpreted by me: 06/16/20 06/16/20 01:23 01:35 Chloride 108 H Carbon Dioxide 21 L Urine Protein >=500 H Urine Glucose (UA) 50 H Urine Blood LARGE H Urine Nitrite POSITIVE H Urine Urobilinogen 4.0 H Critical Care Note <SINDY PAULINO JR - Last Filed: 06/16/20 01:51> - Critical Care Note Comments: This case was turned over to Dr. Juan Stark at 0 200 (SINDY PAULINO JR) Discharge <SINDY PAULINO JR - Last Filed: 06/16/20 01:51> <TERRY STARK IV - Last Filed: 06/16/20 05:34> - Discharge Clinical Impression: Abdominal pain affecting , Infection and inflammatory reaction due to other urinary stents, initial encounter Condition: Stable Disposition: HOME, SELF-CARE Additional Instructions: Return to the Emergency Department without delay if any worse. HOME CARE INSTRUCTIONS & INFORMATION: Thank you for choosing us for your medical needs. We hope you're satisfied with the care you received. After you leave, you must properly care for your problem and, at the same time, observe its progress. Any condition can change. Some illnesses can change rapidly over hours or days. If your condition worsens, return to the Emergency Department or see your physician promptly. ABOUT YOUR X-RAYS AND EKG'S: If you had an EKG or X-rays taken, they have been read by the Emergency Physician. The X-rays and EKG's will also be read by a Radiologist or Loss Prevention Research Engineer within 24 hours. If discrepancies are noted, you w ill be notified by telephone. Please be certain the ED has a correct telephone number & address where you can be reached. Also, realize that some fractures or abnormalities do not show up on initial X-rays. If your symptoms continue, see your physician. ABOUT YOUR LABORATORY TEST: If you had laboratory tests, the results have been reviewed by the Emergency Physician. Some test results (for example cultures) may not be available for several days. You will be contacted if any test result shows you need additional treatment. Please be certain the ED has a correct telephone number and address where you can be reached. ABOUT YOUR MEDICATIONS: You will receive instructions on how to take your medicine on the prescription label you receive. Additional information may be provided by the Pharmacy. If you have questions afterwards, call the ED for clarification or further instructions. Some prescribed medications may cause drowsiness. Do not perform tasks such as driving a car or operating machinery without consulting your Pharmacist. If you feel you need a refill of pain medic ation, your condition will need re-evaluation. Please do not call for a refill of any medication. ABOUT YOUR SIGNATURE: Signature of this document acknowledges to followin. Understanding that you received emergency treatment and that you may be released before al medical problems are known or treated. Please be certain the ED has a correct phone number & address where you can be reached. 2. Acknowledgement that you will arrange for follow-up care as recommended. 3. Authorization for the Emergency Physician to provide information to your follow-up Physician in order to maximize your care. AT ANY TIME, IF YOUR SYMPTOMS CHANGE SIGNIFICANTLY OR WORSEN OR YOU DEVELOP NEW SYMPTOMS, RETURN TO THE EMERGENCY DEPARTMENT IMMEDIATELY FOR RE-EVALUATION. OUR GOAL IS TO PROVIDE EXCELLENT MEDICAL CARE! WE HOPE THAT WE HAVE MET YOUR EXPECTATIONS DURING YOUR EMERGENCY DEPARTMENT VISIT AND THAT YOU FEEL YOU HAVE RECEIVED EXCELLENT CARE! Urinary Tract Infection Your evaluation indicates that you have a urinary tract infection. This is due to germs growing in the bladder. This is a common problem. This infection usually responds quickly to antibiotics. Your antibiotic should be taken exactly as prescribed. Drink plenty of fluids -- three to four quarts a day. Occasionally, a bladder anesthetic will be prescribed to help stop the feeling of urgency until the antibiotic has a chance to clear the infection. This may cause your urine to be dark orange. Certain urine infections require a culture. If the doctor obtained a culture, the results will be back in two days. You should call to see if a change in treatment is needed. A repeat urinalysis after you finish treatment is often recommended. The physician will let you know if further testing is required. Call the doctor if you develop fever, chills, flank pain, inability to urinate, or blood in the urine. Prescriptions: Nitrofurantoin Monohyd/M-Cryst [Macrobid 100 mg Capsule] 100 mg PO BID #14 cap Referrals: ZAHEER RAMSEY MD [Primary Care Provider] - Follow up as needed
[2020-06-16] MEDS: NORMAL SALINE 1000 ML 1,000 ML IV PRN ×2 (01:49→02:43)
[2020-06-16 01:59] LABS: ABSOLUTE BASOPHILS # (AUTO) 0.1 10^3/uL (0.0-0.2); ABSOLUTE EOSINOPHILS # (AUTO) 0.2 10^3/uL (0.0-0.6); ABSOLUTE MONOCYTES (AUTO) 0.7 10^3/uL (0.1-1.4); ABSOLUTE NEUT (AUTO) 5.8 10^3/uL (1.7-8.2); BASOPHILS % (AUTO) 1.3 % (0-2); EOSINOPHILS % (AUTO) 2.6 % (0-6); HEMOGLOBIN 12.7 g/dL (12.0-15.5); LYMPHOCYTES % (AUTO) 22.9 % (13-45); MEAN CORPUSCULAR HEMOGLOBIN 30.6 pg (27.0-33.4); MEAN CORPUSCULAR HGB CONC 34.2 g/dL (32.0-36.0); MEAN CORPUSCULAR VOLUME 89 fl (80-97); PLATELET COUNT 227 10^3/uL (150-450); RED BLOOD COUNT 4.15 10^6/uL (3.72-5.28); RED CELL DISTRIBUTION WIDTH 12.5 % (11.5-14.0); SEGMENTED NEUTROPHILS % (AUTO) 65.2 % (42-78); TOTAL CELLS COUNTED % (AUTO) 100 %; WHITE BLOOD COUNT 8.9 10^3/uL (4.0-10.5)
[2020-06-16 02:07] LABS: ALBUMIN 3.7 g/dL (3.5-5.0); ALKALINE PHOSPHATASE 96 U/L (38-126); ANION GAP 9 (5-19); ASPARTATE AMINO TRANSFERASE 18 U/L (14-36); BILIRUBIN,TOTAL 0.7 mg/dL (0.2-1.3); BLOOD UREA NITROGEN 13 mg/dL (7-20); CALCIUM 9.3 mg/dL (8.4-10.2); CARBON DIOXIDE 21 mmol/L (22-30); CHLORIDE 108 mmol/L (98-107); GLUCOSE 89 mg/dL (75-110); POTASSIUM 4.4 mmol/L (3.6-5.0); TOTAL PROTEIN 6.6 g/dL (6.3-8.2)
[2020-06-16 02:14] LABS: APPEARANCE,URINE CLOUDY; BILIRUBIN,URINE NEGATIVE (NEGATIVE); COLOR,URINE RED; GLUCOSE, URINE 50 mg/dL (NEGATIVE); KETONES,URINE NEGATIVE (NEGATIVE); LEUKOCYTE ESTERASE,URINE NEGATIVE (NEGATIVE); NITRITE,URINE POSITIVE (NEGATIVE); PROTEIN,URINE >=500 mg/dL (NEGATIVE); URINE SPECIFIC GRAVITY 1.029
--- NOTE | 2020-06-16 02:38 | RADIOLOGY REPORT (SQ) ---
CLINICAL INDICATION: flank pain. . TECHNIQUE: Noncontrast spiral axial CT imaging was obtained of the abdomen and pelvis with multiplanar reconstructions. This exam was performed according to our departmental dose-optimization program, which includes automated exposure control, adjustment of the mA and/or kV according to patient size and/or use of iterative reconstruction techniques. COMPARISON: October 09, 2019. CORRELATION: None. FINDINGS: Abdomen: The lung bases are grossly clear. The heart is of normal size. No evidence of pleural or pericardial fluid. The liver is of normal size contour and attenuation. The gallbladder is surgically absent. The pancreas not well seen. The spleen is unremarkable. The adrenals are unremarkable. The kidneys demonstrate mild bilateral hydronephrosis. Double-J stents are identified with the proximal loop within the proximal ureter not the collecting system, suboptimal.. There is no evidence of free air. No free fluid. No bulky adenopathy. Abdominal aorta is nonaneurysmal. Pelvis: The bowel is nonobstructed. The bowel is unopacified with oral contrast. Pelvic contents demonstrate intrauterine gestation in a vertex presentation. The appendix is normal. Visualized bones are unremarkable. IMPRESSION: Bilateral hydronephrosis and hydroureter. The double-J stents are in suboptimal position coiled within the proximal ureter. The proximal loops are not within the collecting system..
[2020-06-16] MEDS ORDERED: NITROFURANTOIN MONOHYD/M-CRYST 100 MG CAPSULE PO ONE (04:26)
[2020-06-16 04:40] VITALS: BP 115/71
== END 2020-06-16 04:38 | disposition home or self-care (01) ==
LOC: ER 23:51
DX: O98.919 Unspecified maternal infectious and parasitic disease complicating pregnancy, unspecified trimester (principal); T83.593A Infection and inflammatory reaction due to other urinary stents, initial encounter; Y73.8 Miscellaneous gastroenterology and urology devices associated with adverse incidents, not elsewhere classified; O99.89 Other specified diseases and conditions complicating pregnancy, childbirth and the puerperium; N13.30 Unspecified hydronephrosis; O26.899 Other specified pregnancy related conditions, unspecified trimester; R10.9 Unspecified abdominal pain; R10.819 Abdominal tenderness, unspecified site; R20.0 Anesthesia of skin; R51 Headache; R30.0 Dysuria; R39.15 Urgency of urination; Z3A.00 Weeks of gestation of pregnancy not specified; Z79.891 Long term (current) use of opiate analgesic; Z87.440 Personal history of urinary (tract) infections; Z87.42 Personal history of other diseases of the female genital tract; Z88.6 Allergy status to analgesic agent; Z88.5 Allergy status to narcotic agent; Z91.048 Other nonmedicinal substance allergy status; Z91.010 Allergy to peanuts; Z90.49 Acquired absence of other specified parts of digestive tract
CPT/HCPCS: 99285; 96361; 96374; 96375; 36415; 87086; 85025; 80053; 81001; 74176; J3010; J2550; J7030; J8499

== ENCOUNTER 2020-06-19 16:16 | Emergency (ER) | payer OTHER ==
[2020-06-19] MEDS ORDERED: NORMAL SALINE 1000 ML 1,000 ML IV ONE (16:29)
--- NOTE | 2020-06-19 16:31 | ER Document Report ---
ED Medical Screen (RME) - General Chief Complaint: Possible Kidney Stone Stated Complaint: FLANK PAIN Time Seen by Provider: 06/19/20 16:23 Primary Care Provider: ZAHEER RAMSEY MD [Primary Care Provider] - Follow up as needed Information source: Patient Notes: Patient presents complaining of dysuria, hematuria and suprapubic tenderness. Patient complains of tenderness to the right flank area. Patient denies any fever. Patient is currently 34 weeks and has bilateral ureteral stents with a history of kidney stones. Patient states she is followed by urologist in [place]. Patient was here recently diagnosed with a UTI and placed on antibiotic although is uncertain which antibiotic it was. I have greeted and performed a rapid initial assessment of this patient. A comprehensive ED assessment and evaluation of the patient, analysis of test results and completion of the medical decision making process will be conducted by additional ED providers. TRAVEL OUTSIDE OF THE [place].S. IN LAST 30 DAYS: No - Related Data Allergies/Adverse Reactions: codeine Allergy (Verified 06/19/20 16:23) lavender (Lavandula angustifolia) Allergy (Verified 06/19/20 16:23) morphine Allergy (Verified 06/19/20 16:23) peanut Allergy (Verified 06/19/20 16:23) tramadol Allergy (Verified 06/19/20 16:23) ibuprofen Adverse Reaction (Verified 06/19/20 16:23) Home Medications: metoprolol. oxybutin. oxycodone. . pyridium. atb Past Medical History - Social History Chew tobacco use (# tins/day): No Frequency of alcohol use: None Drug Abuse: None - Past Medical History Cardiac Medical History: Denies: Hx Coronary Artery Disease, Hx Heart Attack, Hx Hypertension Pulmonary Medical History: Denies: Hx Asthma, Hx Bronchitis, Hx COPD, Hx Pneumonia Neurological Medical History: Denies: Hx Cerebrovascular Accident, Hx Seizures Renal/ Medical History: Reports: Hx Kidney Stones, Hx Ovarian Cysts Musculoskeltal Medical History: Denies Hx Arthritis Past Surgical History: Reports: Hx Adenoidectomy, Hx Cholecystectomy, Hx Kidney (Renal Surgery), Hx Tonsillectomy Physical Exam - Vital signs Vitals: Temp Pulse Resp BP Pulse Ox 97.9 F 133 H 16 126/67 H 98 06/19/20 16:19 06/19/20 16:19 06/19/20 16:19 06/19/20 16:19 06/19/20 16:19 - General General appearance: Alert In distress: Mild - Abdominal Inspection: Gravid female Tenderness: Tender - Suprapubic Course - Vital Signs Vital signs: Temp Pulse Resp BP Pulse Ox 97.9 F 133 H 16 126/67 H 98 06/19/20 16:23 06/19/20 16:19 06/19/20 16:19 06/19/20 16:19 06/19/20 16:19 Doctor's Discharge - Discharge Referrals: ZAHEER RAMSEY MD [Primary Care Provider] - Follow up as needed
[2020-06-19 17:14] LABS: ABSOLUTE EOSINOPHILS # (AUTO) 0.2 10^3/uL (0.0-0.6); ABSOLUTE LYMPHOCYTES (AUTO) 1.5 10^3/uL (0.5-4.7); ABSOLUTE MONOCYTES (AUTO) 0.6 10^3/uL (0.1-1.4); ABSOLUTE NEUT (AUTO) 5.7 10^3/uL (1.7-8.2); BASOPHILS % (AUTO) 0.5 % (0-2); EOSINOPHILS % (AUTO) 2.6 % (0-6); HEMOGLOBIN 13.1 g/dL (12.0-15.5); LYMPHOCYTES % (AUTO) 19.1 % (13-45); MEAN CORPUSCULAR HEMOGLOBIN 30.8 pg (27.0-33.4); MEAN CORPUSCULAR HGB CONC 34.5 g/dL (32.0-36.0); MEAN CORPUSCULAR VOLUME 89 fl (80-97); MONOCYTES % (AUTO) 7.7 % (3-13); PLATELET COUNT 239 10^3/uL (150-450); RED BLOOD COUNT 4.25 10^6/uL (3.72-5.28); RED CELL DISTRIBUTION WIDTH 12.2 % (11.5-14.0); SEGMENTED NEUTROPHILS % (AUTO) 70.1 % (42-78); TOTAL CELLS COUNTED % (AUTO) 100 %; WHITE BLOOD COUNT 8.1 10^3/uL (4.0-10.5)
--- NOTE | 2020-06-19 17:23 | RADIOLOGY REPORT (SQ) ---
EXAM DESCRIPTION: U/S RETROPERITON (RENAL/AORTA) IMAGES COMPLETED DATE/TIME: 06/19/2020 5:11 pm REASON FOR STUDY: lower pelvic pain, R flank pain COMPARISON: None. TECHNIQUE: Dynamic and static grayscale images acquired of the kidneys and bladder and recorded on P ACS. Additional selected color Doppler and spectral images recorded. LIMITATIONS: None. FINDINGS: RIGHT KIDNEY: Normal size, 11.8 cm. Normal echogenicity. No solid or suspicious masses. M ild pelvicaliectasis. No calcifications. LEFT KIDNEY: Normal size, 11.9 cm. Normal echogenicity. No solid or suspicious masses. Mild pelvica liectasis. No calcifications. BLADDER: Ureteral stents are seen in the bladder. OTHER FINDINGS: No other significant finding. IMPRESSION: Mild pelvicaliectasis. Ureteral stents. TECHNICAL DOCUMENTATION: JOB ID: [id number] 2010 [employer]- All Rights Reserved Reading location - IP/workstation name: [email or web address]
--- NOTE | 2020-06-19 17:26 | RADIOLOGY REPORT (SQ) ---
EXAM DESCRIPTION: U/S OB 14+ TRNABD 1GES W/O DOP IMAGES COMPLETED DATE/TIME: 06/19/2020 5:11 pm REASON FOR STUDY: lower pelvic pain, R flank pain COMPARISON: None. TECHNIQUE: Static and Dynamic grayscale imaging performed of gravid uterus using transabdominal appr oach. Additional selected color Doppler and spectral images recorded. All stored on PACS. LIMITATIONS: None. FINDINGS: FETUSES SEEN:1 EGA: 34 weeks 5 days Calculated using BPD,FL,HC,AC documented on images. No discrepancy with clinica l dates. SID: 07/26/2020 EFW: 2,157 grams PERCENTILE: 25th KARYN: 9 cm. PLACENTA: Anterior GRADE: I PRESENTATION: Cephalic. ANATOMY: HEART RATE: 171 beats per minute. Complete anatomical survey was not performed. MATERNAL ADNEXA: Maternal ovaries not visualized. CERVICAL LENGTH: Not seen. OTHER: No other significant finding. IMPRESSION: LIVING INTRAUTERINE . ESTIMATED GESTATIONAL AGE 34 weeks 5 days. Complete anatomical survey was not performed. Trimester of : Third trimester - 28 weeks to delivery. TECHNICAL DOCUMENTATION: JOB ID: [id number] 2010 [employer]- All Rights Reserved Reading location - IP/workstation name: [email or web address]
[2020-06-19 17:28] LABS: APPEARANCE,URINE SLIGHTLY-CLOUDY; BILIRUBIN,URINE NEGATIVE (NEGATIVE); COLOR,URINE AMBER; GLUCOSE, URINE NEGATIVE (NEGATIVE); KETONES,URINE NEGATIVE (NEGATIVE); LEUKOCYTE ESTERASE,URINE TRACE (NEGATIVE); NITRITE,URINE POSITIVE (NEGATIVE); PROTEIN,URINE 100 mg/dL (NEGATIVE); URINE SPECIFIC GRAVITY 1.012
[2020-06-19 17:32] LABS: ALKALINE PHOSPHATASE 111 U/L (38-126); ANION GAP 8 (5-19); ASPARTATE AMINO TRANSFERASE 20 U/L (14-36); BILIRUBIN,TOTAL 0.4 mg/dL (0.2-1.3); BLOOD UREA NITROGEN 8 mg/dL (7-20); CALCIUM 9.3 mg/dL (8.4-10.2); CARBON DIOXIDE 22 mmol/L (22-30); CHLORIDE 105 mmol/L (98-107); GLUCOSE 79 mg/dL (75-110); POTASSIUM 4.7 mmol/L (3.6-5.0); TOTAL PROTEIN 7.2 g/dL (6.3-8.2)
[2020-06-19] MEDS ORDERED: FENTANYL CITRATE INJ/PF 100 MCG/2 ML AMPUL IV ONE (18:01)
[2020-06-19] MEDS ORDERED: ONDANSETRON HCL INJ/PF 4 MG/2 ML SDV IV ONE (18:01)
[2020-06-19] MEDS ORDERED: CEFTRIAXONE 1 GM/D5W RTU 1 GM/50 ML RTUPB IV ONE (18:02)
--- NOTE | 2020-06-19 18:48 | ER Document Report ---
Entered by GEORGINA JETER SCRIBE 06/19/20 1746 Acting as scribe for:ELLIOTT VIERA, DO ED General - General Chief Complaint: Possible Kidney Stone Stated Complaint: FLANK PAIN Time Seen by Provider: 06/19/20 16:23 Primary Care Provider: ZAHEER RAMSEY MD [ACTIVE STAFF] - Follow up as needed Information source: Patient Notes: This 25 year old female patient presents to the emergency department today with complaints of increased pain when urinating. Patient states she is 34 weeks and 5 days , . Patient states she was seen in the ED x3 days ago for a UTI and was given antibiotics. Patient states she is on a medication for bladder spasms and is on oxycodone. Patient reports increased pain when urinating, suprapubic pain, and clots in her urine since her last ED visit. Patient reports history of kidney stones, bilateral ureteral stents x1 month ago, and has a Urologist in [place]. TRAVEL OUTSIDE OF THE [place] IN LAST 30 DAYS: No - Related Data Allergies/Adverse Reactions: codeine Allergy (Verified 06/19/20 16:23) lavender (Lavandula angustifolia) Allergy (Verified 06/19/20 16:23) morphine Allergy (Verified 06/19/20 16:23) peanut Allergy (Verified 06/19/20 16:23) tramadol Allergy (Verified 06/19/20 16:23) ibuprofen Adverse Reaction (Verified 06/19/20 16:23) Home Medications: metoprolol. oxybutin. oxycodone. . pyridium. atb Past Medical History - General Information source: Patient - Social History Smoking Status: Never Smoker Cigarette use (# per day): No Chew tobacco use (# tins/day): No Frequency of alcohol use: None Drug Abuse: None Family History: Reviewed & Not Pertinent Patient has homicidal ideation: No Renal/ Medical History: Reports: Hx Kidney Stones, Hx Ovarian Cysts Past Surgical History: Reports: Hx Adenoidectomy, Hx Cholecystectomy, Hx Kidney (Renal Surgery), Hx Tonsillectomy Review of Systems - Review of Systems Constitutional: No symptoms reported EENT: No symptoms reported Cardiovascular: No symptoms reported Respiratory: No symptoms reported Gastrointestinal: See HPI, Abdominal pain - suprapubic region Genitourinary: See HPI, Other - Pain with urination Female Genitourinary: See HPI, Musculoskeletal: No symptoms reported Skin: No symptoms reported Hematologic/Lymphatic: No symptoms reported Neurological/Psychological: No symptoms reported -: Yes All other systems reviewed and negative Physical Exam - Vital signs Vitals: Temp Pulse Resp BP Pulse Ox 97.9 F 133 H 16 126/67 H 98 06/19/20 16:19 06/19/20 16:19 06/19/20 16:19 06/19/20 16:19 06/19/20 16:19 - General Notes: Alert. Appears in mild to moderate distress from pain. - HEENT Head: Normocephalic, Atraumatic Eyes: Normal Pupils: PERRL - Respiratory Respiratory status: No respiratory distress Chest status: Nontender Breath sounds: Normal Chest palpation: Normal - Cardiovascular Rhythm: Regular Heart sounds: Normal auscultation Murmur: No - Abdominal Inspection: Gravid female Bowel sounds: Normal Notes: Mild tenderness with palpation to the suprapubic region. - Extremities General upper extremity: Normal inspection, Normal ROM General lower extremity: Normal inspection, Normal ROM. No: Edema - Neurological Neuro grossly intact: Yes Cognition: Normal Orientation: AAOx4 [place] Coma Scale Eye Opening: Spontaneous Ruth Coma Scale Verbal: Oriented [place] Coma Scale Motor: Obeys Commands Ruth Coma Scale Total: 15 Speech: Normal - Psychological Associated symptoms: Normal affect, Normal mood - Skin Skin Temperature: Warm Skin Moisture: Dry Skin Color: Normal Course - Vital Signs Vital signs: Temp Pulse Resp BP Pulse Ox 97.7 F 117 H 18 116/83 95 06/19/20 17:54 06/19/20 17:54 06/19/20 17:54 06/19/20 17:54 06/19/20 17:54 - Laboratory Result Diagrams: 06/19/20 16:35 06/19/20 16:35 Laboratory results interpreted by me: 06/19/20 06/19/20 16:35 16:35 Sodium 135.2 L Creatinine 0.50 L Urine Protein 100 H Urine Blood LARGE H Urine Nitrite POSITIVE H Urine Urobilinogen 4.0 H Ur Leukocyte Esterase TRACE H Discharge - Discharge Clinical Impression: Painful bladder spasm, Kidney stones Condition: Stable Disposition: HOME, SELF-CARE Instructions: Antinausea Medication ([facility]), Kidney Stone ([facility]), Pain Medication Injection ([facility]), ([facility]) Additional Instructions: Go to Urology in follow up. Return here for any problems or any concerns. Take the antibiotics as directed. Your medicine has been sent to [facility] in [place]. Prescriptions: Cephalexin Monohydrate [Keflex 500 mg Capsule] 500 mg PO TID #30 capsule Oxycodone HCl [Oxycontin Ir 5 Mg Tablet] 1 - 2 mg PO Q4H PRN #6 tablet PRN Reason: For Pain Phenazopyridine HCl [Pyridium] 100 mg PO TID #9 tablet Ondansetron [Zofran Odt 4 mg Tablet] 1 - 2 tab PO Q4H PRN #15 tab.rapdis PRN Reason: For Nausea/Vomiting Referrals: ZAHEER RAMSEY MD [ACTIVE STAFF] - Follow up as needed I personally performed the services described in the documentation, reviewed and edited the documentation which was dictated to the scribe in my presence, and it accurately records my words and actions.
[2020-06-19 18:57] VITALS: BP 121/69
== END 2020-06-19 18:55 | disposition home or self-care (01) ==
LOC: ER 16:16
DX: O26.893 Other specified pregnancy related conditions, third trimester (principal); N20.0 Calculus of kidney; O23.43 Unspecified infection of urinary tract in pregnancy, third trimester; Z96.0 Presence of urogenital implants; Z3A.34 34 weeks gestation of pregnancy; Z79.891 Long term (current) use of opiate analgesic; Z79.899 Other long term (current) drug therapy; Z88.6 Allergy status to analgesic agent; Z88.5 Allergy status to narcotic agent; Z91.048 Other nonmedicinal substance allergy status; Z91.010 Allergy to peanuts
CPT/HCPCS: 99285; 96361; 96375; 96365; 36415; 87086; 85025; 80053; 81001; 76770; 76805; J3010; J2405; J7030; J0696

== ENCOUNTER 2020-06-21 16:25 | Emergency (ER) | payer OTHER ==
[2020-06-21] MEDS ORDERED: NORMAL SALINE 500 ML IV ONE (16:39)
--- NOTE | 2020-06-21 16:39 | ER Document Report ---
ED Medical Screen (RME) - General Chief Complaint: Flank Pain Stated Complaint: LOW BACK PAIN,FLANK PAIN Time Seen by Provider: 06/21/20 16:32 Mode of Arrival: Ambulatory Information source: Patient Notes: 25-year-old female presents to ED for complaint of severe left flank pain. She states she was seen here couple days ago for UTI was given IV antibiotics and was taking Keflex at home. She states she is having more pain increase in blood in her urine. She does have kidney stones. She states she is been vomiting for the last 4 hours. She states she had a CAT scan about a week ago kidney stones and ultrasound a couple days ago. She states she is 35 weeks . She states she knows she has kidney stone she knows she has infection she is called her [facility] at [place] and her urologist at [place] and they told her to go ahead and go to the hospital at [place] for her continued pain. She states she does not go to [facility] at [place]. I have greeted and performed a rapid initial assessment of this patient. A comprehensive ED assessment and evaluation of the patient, analysis of test results and completion of medical decision making process will be conducted by an additional ED providers. TRAVEL OUTSIDE OF THE [place].S. IN LAST 30 DAYS: No - Related Data Allergies/Adverse Reactions: codeine Allergy (Verified 06/19/20 16:23) lavender (Lavandula angustifolia) Allergy (Verified 06/19/20 16:23) morphine Allergy (Verified 06/19/20 16:23) peanut Allergy (Verified 06/19/20 16:23) tramadol Allergy (Verified 06/19/20 16:23) ibuprofen Adverse Reaction (Verified 06/19/20 16:23) Past Medical History - Past Medical History Cardiac Medical History: Denies: Hx Coronary Artery Disease, Hx Heart Attack, Hx Hypertension Pulmonary Medical History: Denies: Hx Asthma, Hx Bronchitis, Hx COPD, Hx Pneumonia Neurological Medical History: Denies: Hx Cerebrovascular Accident, Hx Seizures Renal/ Medical History: Reports: Hx Kidney Stones, Hx Ovarian Cysts Musculoskeltal Medical History: Denies Hx Arthritis Past Surgical History: Reports: Hx Adenoidectomy, Hx Cholecystectomy, Hx Kidney (Renal Surgery), Hx Tonsillectomy Physical Exam - Vital signs Vitals: Temp Pulse Resp BP Pulse Ox 97.7 F 119 H 18 102/66 96 06/21/20 16:41 06/21/20 16:41 06/21/20 16:41 06/21/20 16:41 06/21/20 16:41 Course - Vital Signs Vital signs: Temp Pulse Resp BP Pulse Ox 97.7 F 110 H 18 120/64 96 06/21/20 16:41 06/21/20 19:05 06/21/20 19:05 06/21/20 19:05 06/21/20 19:05 - Laboratory Result Diagrams: 06/21/20 17:12 06/21/20 17:12 Laboratory results interpreted by me: 06/21/20 06/21/20 06/21/20 17:12 17:12 19:30 Hct 34.5 L Sodium 133.7 L Creatinine 0.51 L Urine Protein >=500 H Urine Ketones TRACE H Urine Blood LARGE H Urine Nitrite POSITIVE H Urine Urobilinogen 4.0 H
[2020-06-21 17:34] LABS: ABSOLUTE EOSINOPHILS # (AUTO) 0.2 10^3/uL (0.0-0.6); ABSOLUTE LYMPHOCYTES (AUTO) 1.4 10^3/uL (0.5-4.7); ABSOLUTE MONOCYTES (AUTO) 0.5 10^3/uL (0.1-1.4); ABSOLUTE NEUT (AUTO) 4.6 10^3/uL (1.7-8.2); BASOPHILS % (AUTO) 0.5 % (0-2); EOSINOPHILS % (AUTO) 2.6 % (0-6); HEMATOCRIT 34.5 % (36.0-47.0); HEMOGLOBIN 12.1 g/dL (12.0-15.5); LYMPHOCYTES % (AUTO) 21.2 % (13-45); MEAN CORPUSCULAR HEMOGLOBIN 31.2 pg (27.0-33.4); MEAN CORPUSCULAR VOLUME 89 fl (80-97); MONOCYTES % (AUTO) 7.2 % (3-13); PLATELET COUNT 226 10^3/uL (150-450); RED BLOOD COUNT 3.88 10^6/uL (3.72-5.28); RED CELL DISTRIBUTION WIDTH 12.3 % (11.5-14.0); SEGMENTED NEUTROPHILS % (AUTO) 68.5 % (42-78); TOTAL CELLS COUNTED % (AUTO) 100 %; WHITE BLOOD COUNT 6.8 10^3/uL (4.0-10.5)
[2020-06-21 17:58] LABS: ALBUMIN 3.7 g/dL (3.5-5.0); ALKALINE PHOSPHATASE 108 U/L (38-126); ANION GAP 9 (5-19); ASPARTATE AMINO TRANSFERASE 30 U/L (14-36); BILIRUBIN,TOTAL 0.6 mg/dL (0.2-1.3); BLOOD UREA NITROGEN 8 mg/dL (7-20); CALCIUM 8.8 mg/dL (8.4-10.2); CARBON DIOXIDE 22 mmol/L (22-30); CHLORIDE 103 mmol/L (98-107); GLUCOSE 84 mg/dL (75-110); NEONATAL BILIRUBIN RESULT 0.7 mg/dL (0.1-1.1); TOTAL PROTEIN 6.9 g/dL (6.3-8.2)
[2020-06-21 19:06] VITALS: BP 120/64
[2020-06-21 19:52] LABS: APPEARANCE,URINE CLOUDY; BILIRUBIN,URINE NEGATIVE (NEGATIVE); COLOR,URINE RED; GLUCOSE, URINE NEGATIVE (NEGATIVE); KETONES,URINE TRACE mg/dL (NEGATIVE); LEUKOCYTE ESTERASE,URINE NEGATIVE (NEGATIVE); NITRITE,URINE POSITIVE (NEGATIVE); PROTEIN,URINE >=500 mg/dL (NEGATIVE); URINE SPECIFIC GRAVITY 1.025
[2020-06-21 20:06] LABS: URINE AMPHETAMINES SCREEN NEGATIVE; URINE BARBITURATES SCREEN NEGATIVE; URINE BENZODIAZEPINES SCREEN NEGATIVE; URINE COCAINE SCREEN NEGATIVE; URINE MARIJUANA (THC) SCREEN NEGATIVE; URINE METHADONE SCREEN NEGATIVE; URINE PHENCYCLIDINE SCREEN NEGATIVE
--- NOTE | 2020-06-21 23:12 | ER Document Report ---
ED General - General Chief Complaint: Flank Pain Stated Complaint: LOW BACK PAIN,FLANK PAIN Time Seen by Provider: 06/21/20 16:32 Mode of Arrival: Ambulatory Information source: Patient, Relative, [facility] Records Notes: Patient is a 25-year-old female presenting to the emergency department chief c felecia of left-sided flank pain. Patient states that she is approximately 35 weeks 3 para 2 a 0. Patient states she had ureteral stents placed about a month ago because of urinary tract infection and kidney stones. She states she has seen both for her urinary care as well as her through providers in [facility] she contacted them today and was told to come to the emergency department for further evaluation and treatment. Patient states that she started noticing blood in her urine last evening. At time of presentation patient seems quite uncomfortable and tearful on exam. Patient denies travel history trauma history sick contacts no fevers or chills cough or cold symptoms. Patient states she is currently taking both pain medicine and antibiotics as well as Pyridium and her regular medications. TRAVEL OUTSIDE OF THE [place] IN LAST 30 DAYS: No - HPI Onset: Yesterday Onset/Duration: Intermittent, Worse Quality of pain: Stabbing Severity: Moderate Pain Level: 3 Associated symptoms: Nausea. denies: Nonproductive cough, Productive cough, Diarrhea, Vomiting, Shortness of breath Exacerbated by: Movement, Walking, Coughing, Deep breathing Relieved by: Denies Similar symptoms previously: Yes Recently seen / treated by doctor: Yes - Related Data Allergies/Adverse Reactions: codeine Allergy (Verified 06/19/20 16:23) lavender (Lavandula angustifolia) Allergy (Verified 06/19/20 16:23) morphine Allergy (Verified 06/19/20 16:23) peanut Allergy (Verified 06/19/20 16:23) tramadol Allergy (Verified 06/19/20 16:23) ibuprofen Adverse Reaction (Verified 06/19/20 16:23) Past Medical History - General Information source: Patient, Relative - Social History Smoking Status: Unknown if Ever Smoked Chew tobacco use (# tins/day): No Frequency of alcohol use: None Drug Abuse: None Lives with: Spouse/Significant other Family History: Reviewed & Not Pertinent Patient has suicidal ideation: No Patient has homicidal ideation: No - Past Medical History Cardiac Medical History: Denies: Hx Coronary Artery Disease, Hx Heart Attack, Hx Hypertension Pulmonary Medical History: Denies: Hx Asthma, Hx Bronchitis, Hx COPD, Hx Pneumonia Neurological Medical History: Denies: Hx Cerebrovascular Accident, Hx Seizures Renal/ Medical History: Reports: Hx Kidney Stones, Hx Ovarian Cysts Musculoskeletal Medical History: Denies Hx Arthritis Past Surgical History: Reports: Hx Adenoidectomy, Hx Cholecystectomy, Hx Kidney (Renal Surgery), Hx Tonsillectomy Review of Systems - Review of Systems Notes: REVIEW OF SYSTEMS: CONSTITUTIONAL : Denies fever, chills, or sweats. Denies recent illness. EENT: Denies eye, ear, throat, or mouth pain or symptoms. Denies nasal or sinus congestion. CARDIOVASCULAR: Denies chest pain. RESPIRATORY: Denies cough, cold, or chest congestion. Denies shortness of breath, difficulty breathing, or wheezing. GASTROINTESTINAL: Denies abdominal pain. Denies nausea, vomiting, or diarrhea. Denies constipation. GENITOURINARY: Per HPI MUSCULOSKELETAL: Denies neck or back pain or joint pain or swelling. SKIN: Denies rash or skin lesions. HEMATOLOGIC : Denies easy bruising or bleeding. NEUROLOGICAL: Denies altered mental status or loss of consciousness. Denies headache. Denies weakness or paralysis or loss of use of either side. Denies problems with gait or speech. Denies sensory or motor loss. PSYCHIATRIC: Denies suicidal or homicidal ideations 10 Systems are negative unless otherwise specified above Physical Exam - Vital signs Vitals: Temp Pulse Resp BP Pulse Ox 97.7 F 119 H 18 102/66 96 06/21/20 16:41 06/21/20 16:41 06/21/20 16:41 06/21/20 16:41 06/21/20 16:41 - Notes Notes: PHYSICAL EXAMINATION: GENERAL: Patient is a 25-year-old female presenting secondary to hematuria and flank pain in mild to moderate discomfort HEAD: Atraumatic, normocephalic. EYES: Pupils equal round and reactive to light, extraocular movements intact, sclera anicteric, conjunctiva are normal. ENT: nares patent, oropharynx clear without exudates. Moist mucous membranes. NECK: Normal range of motion, supple without lymphadenopathy, no appreciable JVD LUNGS: Lungs clear to auscultation bilaterally and equal. No wheezes rales or rhonchi. HEART: Slightly tachycardic rate and rhythm without murmurs ABDOMEN: Soft, nontender, normal bowel sounds. No guarding, no rebound. No masses appreciated. Obvious gravid uterus Back: Patient has tenderness to the CVA region on the left there is no signs of swelling erythema or ecchymosis. EXTREMITIES: Active full range of motion, no pitting or edema. No cyanosis. 2+ pulses x4 NEUROLOGICAL: No focal neurological deficits. Moves all extremities sp ontaneously and on command. SKIN: Warm, Dry, and intact. Normal turgor, no rashes or lesions noted. Course - Re-evaluation Re-evalutation: 06/21/20 23:16 I was informed by nursing staff that the patient no longer wanted to stay in the hospital she states she was tired of waiting. I was in the process of attempting to contact [facility] to speak with both [facility] and the patient's urologist. Patient states that she understands that she is placing herself at risk because we have not completed our care for her but she was adamant about being discharged. Patient understands to follow-up with her [employer]CH[employer]IC and urologist on Wednesday or return to the hospital whether this facility or the hospital in [place] if symptoms worsen. Patient is alert and oriented x3. - Vital Signs Vital signs: Temp Pulse Resp BP Pulse Ox 97.7 F 110 H 18 120/64 96 06/21/20 16:41 06/21/20 19:05 06/21/20 19:05 06/21/20 19:05 06/21/20 19:05 - Laboratory Result Diagrams: 06/21/20 17:12 06/21/20 17:12 Laboratory results interpreted by me: 06/21/20 06/21/20 06/21/20 17:12 17:12 19:30 Hct 34.5 L Sodium 133.7 L Creatinine 0.51 L Urine Protein >=500 H Urine Ketones TRACE H Urine Blood LARGE H Urine Nitrite POSITIVE H Urine Urobilinogen 4.0 H Discharge - Discharge Clinical Impression: Abdominal pain affecting , Kidney stones, Flank pain Hematuria Qualifiers: Hematuria type: unspecified type Qualified Code(s): R31.9 - Hematuria, unspecified UTI (urinary tract infection) Qualifiers: Urinary tract infection type: site unspecified Hematuria presence: with hematuria Qualified Code(s): N39.0 - Urinary tract infection, site not specified; R31.9 - Hematuria, unspecified Condition: Stable Disposition: AGAINST MEDICAL ADVICE
== END 2020-06-21 22:31 | disposition left against medical advice (07) ==
LOC: ER 16:25
DX: O23.43 Unspecified infection of urinary tract in pregnancy, third trimester (principal); N20.0 Calculus of kidney; R10.9 Unspecified abdominal pain; M54.5 Low back pain; Z3A.35 35 weeks gestation of pregnancy; R31.9 Hematuria, unspecified; Z87.442 Personal history of urinary calculi
CPT/HCPCS: 99284; 36415; 87086; 85025; 80053; 81001; 80307; J7040

== ENCOUNTER 2020-08-10 15:31 | Emergency (ER) | payer OTHER ==
[2020-08-10] MEDS ORDERED: NORMAL SALINE 1000 ML 1,000 ML IV ONE (15:44)
[2020-08-10] MEDS ORDERED: FENTANYL CITRATE INJ/PF 100 MCG/2 ML AMPUL IV ONE ×2 (15:45→19:43)
--- NOTE | 2020-08-10 15:47 | ER Document Report ---
ED Medical Screen (RME) - General Chief Complaint: Flank Pain Stated Complaint: FLANK PAIN Time Seen by Provider: 08/10/20 15:38 Notes: Patient is a 25-year-old female presents emergency department with a chief complaint of bilateral flank pain. Patient had renal stents removed this past Wednesday. Since then, she started to have pain. States that she continues to have pain. Patient has history of kidney stones in the past. States that she felt nauseous earlier, but does not have any nausea at this time. States that the pain was mainly on the right side. Exam: Right CVA tenderness. I have greeted and performed a rapid initial assessment of this patient. A comprehensive ED assessment and evaluation of the patient, analysis of test results and completion of medical decision making process will be conducted by an additional ED providers. TRAVEL OUTSIDE OF THE [place] IN LAST 30 DAYS: No - Related Data Allergies/Adverse Reactions: codeine Allergy (Verified 08/10/20 15:39) lavender (Lavandula angustifolia) Allergy (Verified 08/10/20 15:39) morphine Allergy (Verified 08/10/20 15:39) peanut Allergy (Verified 08/10/20 15:39) tramadol Allergy (Verified 08/10/20 15:39) ibuprofen Adverse Reaction (Verified 08/10/20 15:39) Past Medical History - Past Medical History Cardiac Medical History: Denies: Hx Coronary Artery Disease, Hx Heart Attack, Hx Hypertension Pulmonary Medical History: Denies: Hx Asthma, Hx Bronchitis, Hx COPD, Hx Pneumonia Neurological Medical History: Denies: Hx Cerebrovascular Accident, Hx Seizures Renal/ Medical History: Reports: Hx Kidney Stones, Hx Ovarian Cysts Musculoskeltal Medical History: Denies Hx Arthritis Past Surgical History: Reports: Hx Adenoidectomy, Hx Cholecystectomy, Hx Kidney (Renal Surgery), Hx Tonsillectomy Physical Exam - Vital signs Vitals: Temp Pulse Resp BP Pulse Ox 98.1 F 89 16 112/60 100 08/10/20 15:35 08/10/20 15:35 08/10/20 15:35 08/10/20 15:35 08/10/20 15:35 Course - Vital Signs Vital signs: Temp Pulse Resp BP Pulse Ox 98.1 F 89 16 112/60 100 08/10/20 15:35 08/10/20 15:35 08/10/20 15:35 08/10/20 15:35 08/10/20 15:35
[2020-08-10 16:28] LABS: ABSOLUTE EOSINOPHILS # (AUTO) 0.2 10^3/uL (0.0-0.6); ABSOLUTE LYMPHOCYTES (AUTO) 2.7 10^3/uL (0.5-4.7); ABSOLUTE MONOCYTES (AUTO) 0.4 10^3/uL (0.1-1.4); ABSOLUTE NEUT (AUTO) 2.2 10^3/uL (1.7-8.2); BASOPHILS % (AUTO) 0.4 % (0-2); EOSINOPHILS % (AUTO) 3.2 % (0-6); HEMATOCRIT 40.9 % (36.0-47.0); HEMOGLOBIN 13.7 g/dL (12.0-15.5); LYMPHOCYTES % (AUTO) 49.1 % (13-45); MEAN CORPUSCULAR HGB CONC 33.4 g/dL (32.0-36.0); MEAN CORPUSCULAR VOLUME 87 fl (80-97); MONOCYTES % (AUTO) 6.5 % (3-13); PLATELET COUNT 389 10^3/uL (150-450); RED BLOOD COUNT 4.72 10^6/uL (3.72-5.28); RED CELL DISTRIBUTION WIDTH 12.8 % (11.5-14.0); SEGMENTED NEUTROPHILS % (AUTO) 40.8 % (42-78); TOTAL CELLS COUNTED % (AUTO) 100 %; WHITE BLOOD COUNT 5.4 10^3/uL (4.0-10.5)
[2020-08-10 16:45] LABS: ALBUMIN 4.9 g/dL (3.5-5.0); ALKALINE PHOSPHATASE 114 U/L (38-126); ANION GAP 14 (5-19); ASPARTATE AMINO TRANSFERASE 26 U/L (14-36); BILIRUBIN,DIRECT 0.2 mg/dL (0.0-0.4); BILIRUBIN,TOTAL 0.5 mg/dL (0.2-1.3); BLOOD UREA NITROGEN 10 mg/dL (7-20); CALCIUM 10.1 mg/dL (8.4-10.2); CARBON DIOXIDE 24 mmol/L (22-30); CHLORIDE 101 mmol/L (98-107); GLUCOSE 85 mg/dL (75-110); POTASSIUM 4.5 mmol/L (3.6-5.0); TOTAL PROTEIN 8.1 g/dL (6.3-8.2)
--- NOTE | 2020-08-10 17:03 | RADIOLOGY REPORT (SQ) ---
EXAM DESCRIPTION: U/S RETROPERITON (RENAL/AORTA) IMAGES COMPLETED DATE/TIME: 08/10/2020 4:35 pm REASON FOR STUDY: bilateral flank pain; R>L COMPARISON: 06/19/2020. TECHNIQUE: Dynamic and static grayscale images acquired of the kidneys and bladder and recorded on P ACS. Additional selected color Doppler and spectral images recorded. LIMITATIONS: None. FINDINGS: RIGHT KIDNEY: Normal size. Mild cortical thinning. Normal echogenicity. No solid or susp icious masses. No hydronephrosis. No calcifications. LEFT KIDNEY: Normal size. Normal echogenicity. No solid or suspicious masses. No hydronephrosis. No calcifications. BLADDER: No masses. OTHER FINDINGS: No other significant finding. IMPRESSION: PREVIOUSLY SEEN HYDRONEPHROSIS HAS RESOLVED. MILD CORTICAL THINNING OF THE RIGHT KIDNEY . NO OTHER SIGNIFICANT FINDINGS. TECHNICAL DOCUMENTATION: JOB ID: [id number] 2010 [employer]- All Rights Reserved Reading location - IP/workstation name: [email or web address]
[2020-08-10 17:13] LABS: APPEARANCE,URINE CLEAR; BILIRUBIN,URINE NEGATIVE (NEGATIVE); COLOR,URINE YELLOW; GLUCOSE, URINE NEGATIVE (NEGATIVE); KETONES,URINE TRACE mg/dL (NEGATIVE); LEUKOCYTE ESTERASE,URINE SMALL (NEGATIVE); NITRITE,URINE NEGATIVE (NEGATIVE); PROTEIN,URINE 30 mg/dL (NEGATIVE)
--- NOTE | 2020-08-10 18:37 | ER Document Report ---
ED GI/ - General Chief Complaint: Flank Pain Stated Complaint: FLANK PAIN Time Seen by Provider: 08/10/20 15:38 Primary Care Provider: ASHLEY LUQUE [Primary Care Provider] - Follow up as needed Mode of Arrival: Ambulatory Information source: Patient Notes: 25-year-old female past medical history significant for kidney stones, recently had stents removed by her urologist [facility] on . She states that when they removed the stents the kidney stones were calcified to the stents. She is awaiting surgery to have the kidney stones removed. Patient st ates the stent report in when she was 28 weeks . States that the pain has gotten increasingly worse since yesterday. Called her urologist was referred to the emergency room. She denies any fevers, no nausea, no vomiting. Has been taking her oxycodone at home with some relief. She is also 2 and half weeks . Currently breast-feeding. TRAVEL OUTSIDE OF THE [place] IN LAST 30 DAYS: No - Related Data Allergies/Adverse Reactions: codeine Allergy (Verified 08/10/20 15:39) lavender (Lavandula angustifolia) Allergy (Verified 08/10/20 15:39) morphine Allergy (Verified 08/10/20 15:39) peanut Allergy (Verified 08/10/20 15:39) tramadol Allergy (Verified 08/10/20 15:39) ibuprofen Adverse Reaction (Verified 08/10/20 15:39) Past Medical History - General Information source: Patient - Social History Smoking Status: Never Smoker Frequency of alcohol use: None Drug Abuse: None Family History: Reviewed & Not Pertinent - Past Medical History Cardiac Medical History: Denies: Hx Coronary Artery Disease, Hx Heart Attack, Hx Hypertension Pulmonary Medical History: Denies: Hx Asthma, Hx Bronchitis, Hx COPD, Hx Pneumonia Neurological Medical History: Denies: Hx Cerebrovascular Accident, Hx Seizures Renal/ Medical History: Reports: Hx Kidney Stones, Hx Ovarian Cysts Musculoskeletal Medical History: Denies Hx Arthritis Past Surgical History: Reports: Hx Adenoidectomy, Hx Cholecystectomy, Hx Kidney (Renal Surgery), Hx Tonsillectomy Review of Systems - Review of Systems Constitutional: No symptoms reported Cardiovascular: No symptoms reported Respiratory: No symptoms reported Gastrointestinal: denies: Diarrhea, Nausea, Vomiting Genitourinary: Dysuria, Flank pain, Hematuria Musculoskeletal: No symptoms reported Skin: No symptoms reported Neurological/Psychological: No symptoms reported -: Yes All other systems reviewed and negative Physical Exam - Vital signs Vitals: Temp Pulse Resp BP Pulse Ox 98.1 F 89 16 112/60 100 08/10/20 15:35 08/10/20 15:35 08/10/20 15:35 08/10/20 15:35 08/10/20 15:35 - General General appearance: Appears well, Alert In distress: Mild - Respiratory Respiratory status: No respiratory distress Chest status: Nontender Breath sounds: Normal Chest palpation: Normal - Cardiovascular Rhythm: Regular Heart sounds: Normal auscultation Murmur: No - Back Back: Normal, Tender, CVA tenderness - Right-sided - Neurological Neuro grossly intact: Yes Cognition: Normal Orientation: AAOx4 Ruth Coma Scale Eye Opening: Spontaneous Ruth Coma Scale Verbal: Oriented Juda Coma Scale Motor: Obeys Commands Ruth Coma Scale Total: 15 Speech: Normal Motor strength normal: LUE, RUE, LLE, RLE Sensory: Normal - Skin Skin Temperature: Warm Skin Moisture: Dry Skin Color: Normal Course - Re-evaluation Re-evalutation: 08/10/20 19:00 Patient is resting comfortably with decreased pain. Reviewed lab and ultrasound results with patient. Patient with hematuria, secondary to vaginal bleeding status post vaginal delivery 2 and half weeks ago, also hematuria secondary to recent removal of renal stents. Was told by urologist that she would have ongoing hematuria for at least a week. Vital signs are stable, afebrile. Negative ultrasound. Will get CT abdomen and pelvis for further evaluation of her kidney stones. 08/10/20 19:06 08/10/20 21:03 Patient is currently resting comfortably she is pain-free on exam. Reviewed CT findings result that she has mild hydronephrosis but no stones were noted on the CT. She was counseled to push fluids. Tylenol as needed for pain. Patient did ask if she would be discharged home on narcotic pain medication. Patient was counseled that narcotic pain medication is not indicated at this time. E force was reviewed and patient has been getting multiple prescriptions for narcotics during her secondary to her kidney stones. Follow-up with her urologist as scheduled. Patient was given strict return to the emergency room guidelines. Return for any new or worsening symptoms. All questions were answered. Patient verbalized understanding and agrees with plan of care. - Vital Signs Vital signs: Temp Pulse Resp BP Pulse Ox 98.1 F 89 16 112/60 100 08/10/20 15:35 08/10/20 15:35 08/10/20 15:35 08/10/20 15:35 08/10/20 15:35 - Laboratory Result Diagrams: 08/10/20 15:55 08/10/20 15:55 Laboratory results interpreted by me: 08/10/20 08/10/20 15:55 16:26 Lymph % (Auto) 49.1 H Seg Neutrophils % 40.8 L Urine Protein 30 H Urine Ketones TRACE H Urine Blood MODERATE H Urine Urobilinogen 2.0 H Ur Leukocyte Esterase SMALL H - Diagnostic Test Radiology reviewed: Reports reviewed Discharge - Discharge Clinical Impression: Hydronephrosis, bilateral Condition: Stable Disposition: HOME, SELF-CARE Instructions: Flank Pain ([facility]) Additional Instructions: Your CAT scan does not show any kidney stones at this time. It shows mild bilateral hydronephrosis. Push fluids. Tylenol as needed for pain. Follow-up with urology as scheduled. Return to the emergency room for any new or worsening symptoms. Referrals: LOCALMD,NO [Primary Care Provider] - Follow up as needed
--- NOTE | 2020-08-10 20:07 | RADIOLOGY REPORT (SQ) ---
EXAM DESCRIPTION: CT ABD/PELVIS NO ORAL OR IV IMAGES COMPLETED DATE/TIME: 08/10/2020 7:47 pm REASON FOR STUDY: flank pain COMPARISON: None. TECHNIQUE: CT scan of the abdomen and pelvis performed without intravenous or oral contrast. Images reviewed with lung, soft tissue, and bone windows. Reconstructed coronal and sagittal MPR images revi ewed. All images stored on PACS. All CT scanners at this facility use dose modulation, iterative reconstruction, and/or weight based d osing when appropriate to reduce radiation dose to as low as reasonably achievable (ALARA). [facility]: Dose Right [facility]: CareDose [facility]: Dose Right [facility]: Teradose 4D [facility]: Smart [employer] RADIATION DOSE: CT Rad equipment meets quality standard of care and radiation dose reduction techniq ues were employed. CTDIvol: 5.9 mGy. DLP: 317 mGy-cm.mGy. LIMITATIONS: None. FINDINGS: LOWER CHEST: No significant findings. No nodules or infiltrates. NON-CONTRASTED LIVER, SPLEEN, ADRENALS: Evaluation limited by lack of IV contrast. No identified sign ificant masses. PANCREAS: No masses. No peripancreatic inflammatory changes. GALLBLADDER: Surgically absent. RIGHT KIDNEY AND URETER: No cysts identified. No solid masses. No calcified stones. Mild hydronephro sis - hydroureter. LEFT KIDNEY AND URETER: No cysts identified. No solid masses. No calcified stones. Mild hydronephrosi s - hydroureter.. AORTA AND RETROPERITONEUM: No aneurysm. No retroperitoneal masses or adenopathy. BOWEL AND PERITONEAL CAVITY: No obvious masses or inflammatory changes. No free fluid. APPENDIX: Normal. PELVIS, BLADDER, AND ABDOMINAL WALL:Mild residual enlargement of the uterus. . No free fluid. Unrema rkable bladder. BONES: No acute findings. OTHER: No other significant finding. IMPRESSION: Mild bilateral hydronephrosis - hydroureter. No calcified stones identified. TECHNICAL DOCUMENTATION: JOB ID: [id number] Quality ID # [id number]: Final reports with documentation of one or more dose reduction techniques (e.g., Au tomated exposure control, adjustment of the mA and/or kV according to patient size, use of iterative reconstruction technique) 2010 [email or web address]- All Rights Reserved Reading location - IP/workstation name: [facility] [employer]
[2020-08-10 21:21] VITALS: BP 115/60
== END 2020-08-10 21:21 | disposition home or self-care (01) ==
LOC: ER 15:31
DX: O90.89 Other complications of the puerperium, not elsewhere classified (principal); N13.30 Unspecified hydronephrosis; R10.9 Unspecified abdominal pain; R30.0 Dysuria; R31.9 Hematuria, unspecified; Z88.6 Allergy status to analgesic agent; Z87.442 Personal history of urinary calculi; Z90.49 Acquired absence of other specified parts of digestive tract
CPT/HCPCS: 99285; 96361; 96374; 96375; 36415; 87086; 83690; 84703; 85025; 80053; 81001; 76770; 74176; J3010; J7030

== ENCOUNTER 2020-10-01 16:42 | Emergency (ER) | payer OTHER ==
[2020-10-01] MEDS ORDERED: NORMAL SALINE 1000 ML 1,000 ML IV ONE (17:29)
[2020-10-01] MEDS ORDERED: ONDANSETRON 4 MG TAB.RAPDIS PO ONE (17:29)
[2020-10-01] MEDS ORDERED: HYDROCODONE/ACETAMINOPHEN 10-325 MG TABLET PO ONE (17:29)
--- NOTE | 2020-10-01 17:35 | ER Document Report ---
ED Medical Screen (RME) - General Chief Complaint: Post Surgical Bleeding Stated Complaint: PAIN/DRAINAGE,POST SURGERY Time Seen by Provider: 10/01/20 17:21 Primary Care Provider: ASHLEY LUQUE [Primary Care Provider] - Follow up as needed TRAVEL OUTSIDE OF THE [place] IN LAST 30 DAYS: No - HPI Notes: 10/01/20 17:30 25-year-old female G3, P3 2 months vaginal delivery who presents to the emergency room today for severe periumbilical pain, vomiting twice today s/p umbilical hernia repair on 09/27/2020 in [place] as well as a scar revision. reports pain is 5/5, sharp and stabbing. Patient states there was a slight opening in her umbilical scar tissue when she vomited this afternoon. patient reports her last bowel movement was 3 to 4 days ago, no melena. She states that she has been taking 10 mg oxycodone's for her pain, she typically does have a history of constipation, has been taking MiraLAX daily. Reports she has passed a little bit of flatus this morning. Reports her bowel movement was very small the other day. Patient reports she is mostly been sticking to soups, she did eat a little bit of dinner tonight that was more than soup and she vomited up at 330. Denies any vaginal bleeding vaginal discharge. Patient did call her surgeon's office and they did advise her to go to the nearest emergency room. Denies any fevers or chills. Denies any chest pain, shortness of breath, lightheadedness, dizziness, coffee-ground emesis, melena. Denies history of GI bleed. Patient is actively breast-feeding but does not when she is taking her oxycodone. I have greeted and performed a rapid initial assessment of this patient. A comprehensive ED assessment and evaluation of the patient, analysis of test results and completion of the medical decision making process will be conducted by additional ED providers. PHYSICAL EXAMINATION: GENERAL: Well-appearing, well-nourished and in mild distress. CV: S1, S2 regular tachycardia LUNGS: No respiratory distress abd: Umbilicus with healing scar tissue, no active drainage. Musculoskeletal: Normal range of motion NEUROLOGICAL: Normal speech, normal gait. SKIN: Warm, Dry, normal turgor, no rashes or lesions noted. The patient was evaluated during a global COVID-19 pandemic and that diagnosis was suspected/considered upon their initial presentation. Their evaluation, treatment and testing was consistent with current guidelines for patients who present with complaints or symptoms and may be related to COVID-19. 10/01/20 17:30 - Related Data Allergies/Adverse Reactions: codeine Allergy (Verified 08/10/20 15:39) lavender (Lavandula angustifolia) Allergy (Verified 08/10/20 15:39) morphine Allergy (Verified 08/10/20 15:39) peanut Allergy (Verified 08/10/20 15:39) tramadol Allergy (Verified 08/10/20 15:39) ibuprofen Adverse Reaction (Verified 08/10/20 15:39) Past Medical History - Past Medical History Cardiac Medical History: Denies: Hx Coronary Artery Disease, Hx Heart Attack, Hx Hypertension Pulmonary Medical History: Denies: Hx Asthma, Hx Bronchitis, Hx COPD, Hx Pneumonia Neurological Medical History: Denies: Hx Cerebrovascular Accident, Hx Seizures Renal/ Medical History: Reports: Hx Kidney Stones, Hx Ovarian Cysts Musculoskeltal Medical History: Denies Hx Arthritis Past Surgical History: Reports: Hx Adenoidectomy, Hx Cholecystectomy, Hx Kidney (Renal Surgery), Hx Tonsillectomy Physical Exam - Vital signs Vitals: Temp Pulse Resp BP Pulse Ox 97.9 F 112 H 14 110/69 100 10/01/20 16:47 10/01/20 16:47 10/01/20 16:47 10/01/20 16:47 10/01/20 16:47 Course - Vital Signs Vital signs: Temp Pulse Resp BP Pulse Ox 97.9 F 112 H 14 110/69 100 10/01/20 16:47 10/01/20 16:47 10/01/20 16:47 10/01/20 16:47 10/01/20 16:47 Doctor's Discharge - Discharge Referrals: LOCALMD,NO [Primary Care Provider] - Follow up as needed
[2020-10-01 18:16] LABS: ABSOLUTE BASOPHILS # (AUTO) 0.1 10^3/uL (0.0-0.2); ABSOLUTE EOSINOPHILS # (AUTO) 0.2 10^3/uL (0.0-0.6); ABSOLUTE MONOCYTES (AUTO) 0.4 10^3/uL (0.1-1.4); ABSOLUTE NEUT (AUTO) 5.1 10^3/uL (1.7-8.2); BASOPHILS % (AUTO) 0.9 % (0-2); EOSINOPHILS % (AUTO) 3.1 % (0-6); HEMATOCRIT 42.7 % (36.0-47.0); HEMOGLOBIN 14.4 g/dL (12.0-15.5); LYMPHOCYTES % (AUTO) 25.4 % (13-45); MEAN CORPUSCULAR HEMOGLOBIN 28.2 pg (27.0-33.4); MEAN CORPUSCULAR HGB CONC 33.7 g/dL (32.0-36.0); MEAN CORPUSCULAR VOLUME 84 fl (80-97); MONOCYTES % (AUTO) 5.4 % (3-13); PLATELET COUNT 381 10^3/uL (150-450); RED CELL DISTRIBUTION WIDTH 13.1 % (11.5-14.0); SEGMENTED NEUTROPHILS % (AUTO) 65.2 % (42-78); TOTAL CELLS COUNTED % (AUTO) 100 %; WHITE BLOOD COUNT 7.9 10^3/uL (4.0-10.5)
[2020-10-01 18:29] LABS: APPEARANCE,URINE CLOUDY; BILIRUBIN,URINE NEGATIVE (NEGATIVE); COLOR,URINE YELLOW; GLUCOSE, URINE NEGATIVE (NEGATIVE); KETONES,URINE NEGATIVE (NEGATIVE); LEUKOCYTE ESTERASE,URINE MODERATE (NEGATIVE); NITRITE,URINE NEGATIVE (NEGATIVE); PROTEIN,URINE NEGATIVE (NEGATIVE); URINE SPECIFIC GRAVITY 1.021; UROBILINOGEN,URINE NEGATIVE mg/dL (<2.0)
[2020-10-01 19:40] LABS: ALBUMIN 4.7 g/dL (3.5-5.0); ALKALINE PHOSPHATASE 101 U/L (38-126); ANION GAP 7 (5-19); ASPARTATE AMINO TRANSFERASE 17 U/L (14-36); BILIRUBIN,DIRECT 0.1 mg/dL (0.0-0.4); BILIRUBIN,TOTAL 0.3 mg/dL (0.2-1.3); BLOOD UREA NITROGEN 11 mg/dL (7-20); CALCIUM 9.9 mg/dL (8.4-10.2); CARBON DIOXIDE 28 mmol/L (22-30); CHLORIDE 103 mmol/L (98-107); GLUCOSE 101 mg/dL (75-110); POTASSIUM 4.9 mmol/L (3.6-5.0)
--- NOTE | 2020-10-01 20:46 | RADIOLOGY REPORT (SQ) ---
EXAM DESCRIPTION: CT ABDOMEN PELVIS WITH IV CONTRAST COMPLETED DATE/TME: 10/01/2020 20:19 CLINICAL HISTORY: 25 years, Female, Vomiting, abd pain s/p umilical hernia repair 09/27 COMPARISON: Noncontrast CT 08/10/2020 TECHNIQUE: Axial images with IV and oral contrast. 100 mL of Omnipaque 350. Sagittal coronal reconstruction. Images stored on PACS. All CT scanners at this facility use dose modulation, iterative reconstruction, and/or weight based dosing when appropriate to reduce radiation dose to as low as reasonably achievable (ALARA). FINDINGS: Lung bases, liver, spleen, pancreas, adrenal glands, aorta and pancreatic regions are unremarkable. Kidneys without focal lesions or hydronephrosis. Cholecystectomy. Evidence for biliary dilatation. Status post recent repair for umbilical hernia. There is no suspicious hernia. There is qdxz-li-jijwgzep thickening of the umbilicus. There are three separate small air bubbles at the umbilicus above and below it. There is no suspicious abscess. There is mild skin thickening. Moderately distended stomach. Small bowel loops are unremarkable. Right colon is unremarkable. Mid and distal transverse colon are not well distended but demonstrates suspicion of local colitis. No surrounding omental abnormality. CT of the pelvis demonstrates enlarged retroverted uterus. Possible fibroids. 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 Adnexa not optimally evaluated due to presence of the large uterus. Urinary bladder unremarkable. No suspicious bowel abnormalities. Bony pelvis is unremarkable. No adenopathy. IMPRESSION: 1. Status post recent umbilical hernia repair. No evidence for hernia. There is thickening of the umbilicus and several tiny air bubbles. No suspicious large abnormality. 2. There is appearance of thickening of the mid and distal transverse colon. Question short segment colitis. Less likely artifact from contraction. 3. Enlarged retroverted uterus. Suspicious bicornuate uterus. Not optimally evaluated with CT.
[2020-10-01] MEDS ORDERED: ONDANSETRON HCL INJ/PF 4 MG/2 ML SDV IV ONE (22:31)
[2020-10-01] MEDS ORDERED: HYDROMORPHONE HCL INJ/PF 2 MG/ML AMPULE IV ONE (22:31)
[2020-10-01] MEDS ORDERED: METRONIDAZOLE 500 MG TABLET PO ONE (22:40)
[2020-10-01] MEDS ORDERED: CIPROFLOXACIN HCL 500 MG TABLET PO ONE (22:40)
[2020-10-01 22:59] VITALS: BP 108/65
--- NOTE | 2020-10-01 23:01 | ER Document Report ---
ED GI/ - General Chief Complaint: Post Surgical Pain Stated Complaint: PAIN/DRAINAGE,POST SURGERY Time Seen by Provider: 10/01/20 22:00 Primary Care Provider: EZRA DIAZ MD [NO LOCAL MD] - Follow up as needed Mode of Arrival: Ambulatory Information source: Patient Notes: Patient presents G3, P3 2 months after a vaginal delivery. Patient states that she had surgery to repair her hernia and to revise the scar performed 4 days ago. Patient states that she has had some nausea and vomiting. Patient denies any fever or urinary symptoms. Patient does states she is had a bowel movement since her procedure. She states that she has deep abdominal pain that has gradually worsened since having her procedure performed. Patient states that whenever she ate solid food today it caused her to vomit. Patient states she has been able to tolerate liquids without emesis. TRAVEL OUTSIDE OF THE [place] IN LAST 30 DAYS: No - HPI Patient complains to provider of: Abdominal pain, Vomiting Onset: This morning Timing/Duration: Worse Quality of pain: Sharp Pain Level: 3 Location: Other - Lower abdomen Vaginal bleeding (Compared to normal period): None Associated symptoms: Nausea, Vomiting. denies: Constipation, Diarrhea, Dysuria, Fever, Urinary hesitancy, Urinary frequency, Urinary retention, Urinary urgency Exacerbated by: Food Relieved by: Denies Similar symptoms previously: No Recently seen / treated by doctor: No - Related Data Allergies/Adverse Reactions: codeine Allergy (Verified 08/10/20 15:39) lavender (Lavandula angustifolia) Allergy (Verified 08/10/20 15:39) morphine Allergy (Verified 08/10/20 15:39) peanut Allergy (Verified 08/10/20 15:39) tramadol Allergy (Verified 08/10/20 15:39) ibuprofen Adverse Reaction (Verified 08/10/20 15:39) Past Medical History - General Information source: Patient - Social History Smoking Status: Never Smoker Frequency of alcohol use: None Drug Abuse: None Occupation: None Lives with: Family Family History: Reviewed & Not Pertinent - Past Medical History Cardiac Medical History: Reports: Other - Tachycardia Denies: Hx Coronary Artery Disease, Hx Heart Attack, Hx Hypertension Pulmonary Medical History: Denies: Hx Asthma, Hx Bronchitis, Hx COPD, Hx Pneumonia Neurological Medical History: Denies: Hx Cerebrovascular Accident, Hx Seizures Renal/ Medical History: Reports: Hx Kidney Stones, Hx Ovarian Cysts Musculoskeletal Medical History: Denies Hx Arthritis Past Surgical History: Reports: Hx Adenoidectomy, Hx Cholecystectomy, Hx Kidney (Renal Surgery), Hx Tonsillectomy Review of Systems - Review of Systems Constitutional: No symptoms reported. denies: Fever EENT: No symptoms reported Cardiovascular: No symptoms reported. denies: Chest pain, Palpitations, Syncope Respiratory: No symptoms reported. denies: Cough, Short of breath Gastrointestinal: Abdominal pain, Nausea, Vomiting. denies: Diarrhea, Black stools, Rectal bleeding Genitourinary: No symptoms reported. denies: Dysuria Female Genitourinary: No symptoms reported Musculoskeletal: No symptoms reported. denies: Back pain Skin: No symptoms reported Hematologic/Lymphatic: No symptoms reported Neurological/Psychological: No symptoms reported Physical Exam - Vital signs Vitals: Temp Pulse Resp BP Pulse Ox 97.9 F 112 H 14 110/69 100 10/01/20 16:47 10/01/20 16:47 10/01/20 16:47 10/01/20 16:47 10/01/20 16:47 - Notes Notes: PHYSICAL EXAMINATION: GENERAL: Well-appearing and in no acute distress. HEAD: Atraumatic, normocephalic. EYES: sclera anicteric, conjunctiva are normal. ENT: nares patent. Moist mucous membranes. NECK: Normal range of motion, supple without lymphadenopathy LUNGS: CTAB and equal. No wheezes rales or rhonchi. HEART: Regular rate and rhythm without murmurs ABDOMEN: Soft, lower abdominal tenderness, Steri-Strips over umbilical area, no erythema to the umbilical incision normal bowel sounds, no guarding. EXTREMITIES: Normal range of motion, no pitting edema. No cyanosis. BACK: No midline tenderness, no step-off or deformity. No CVA tenderness NEUROLOGICAL: Cranial nerves grossly intact. Normal speech. PSYCH: Normal mood, normal affect. SKIN: Warm, Dry, normal turgor Course - Re-evaluation Re-evalutation: 10/01/20 22:57 Patient without any fever or leukocytosis. Patient does have chronic tachycardia for which she takes metoprolol. Patient does have findings worrisome for possible colitis noted on CT imaging. Consulted with Dr. Farfan regarding this finding. Agrees with plan for antibiotic administration and recommends having patient follow-up with her surgeon for recheck. Patient without any emesis during her ER stay. Patient requesting additional narcotic medication, reviewed controlled substance database demonstrates that patient should have several days worth of her pain medication at this time. Patient encouraged to speak with her prescribing doctor whether or not they would like to give her additional narcotics at this time. - Vital Signs Vital signs: Temp Pulse Resp BP Pulse Ox 97.8 F 60 18 108/65 100 10/01/20 22:48 10/01/20 22:48 10/01/20 22:48 10/01/20 22:48 10/01/20 22:48 - Laboratory Results Result Diagrams: 10/01/20 17:55 10/01/20 19:05 Laboratory Results Interpreted: 10/01/20 17:55 Ur Leukocyte Esterase MODERATE H 10/01/20 22:58 Labs- All tests 24 hr 10/01/20 10/01/20 10/01/20 17:55 17:55 17:55 WBC 7.9 RBC 5.10 Hgb 14.4 Hct 42.7 MCV 84 MCH 28.2 MCHC 33.7 RDW 13.1 Plt Count 381 Lymph % (Auto) 25.4 Colbert % (Auto) 5.4 Eos % (Auto) 3.1 Baso % (Auto) 0.9 Absolute Neuts (auto) 5.1 Absolute Lymphs (auto) 2.0 Absolute Monos (auto) 0.4 Absolute Eos (auto) 0.2 Absolute Basos (auto) 0.1 Seg Neutrophils % 65.2 Sodium Cancelled Potassium Cancelled Chloride Cancelled Carbon Dioxide Cancelled Anion Gap Cancelled BUN Cancelled Creatinine Cancelled Est GFR ( Amer) Cancelled Est GFR (Non-Af Amer) Cancelled Est GFR (MDRD) Non-Af Cancelled Glucose Cancelled Calcium Cancelled Total Bilirubin Cancelled Direct Bilirubin Cancelled Neonat Total Bilirubin Cancelled Neonat Direct Bilirubin Cancelled Neonat Indirect Bili Cancelled AST Cancelled ALT Cancelled Alkaline Phosphatase Cancelled Total Protein Cancelled Albumin Cancelled Lipase Cancelled EGFR Cancelled Beta HCG, Quant Cancelled Total Beta HCG Cancelled Urine Color YELLOW Urine Appearance CLOUDY Urine pH 7.0 Ur Specific [place] 1.021 Urine Protein NEGATIVE Urine Glucose (UA) NEGATIVE Urine Ketones NEGATIVE Urine Blood NEGATIVE Urine Nitrite NEGATIVE Urine Bilirubin NEGATIVE Urine Urobilinogen NEGATIVE Ur Leukocyte Esterase MODERATE H Urine WBC (Auto) 7 Urine RBC (Auto) 9 Urine Bacteria (Auto) 3+ Squamous Epi Cells Auto 52 Urine Mucus (Auto) OCC Urine Ascorbic Acid NEGATIVE 10/01/20 19:05 WBC RBC Hgb Hct MCV MCH MCHC RDW Plt Count Lymph % (Auto) Colbert % (Auto) Eos % (Auto) Baso % (Auto) Absolute Neuts (auto) Absolute Lymphs (auto) Absolute Monos (auto) Absolute Eos (auto) Absolute Basos (auto) Seg Neutrophils % Sodium 138.0 Potassium 4.9 Chloride 103 Carbon Dioxide 28 Anion Gap 7 BUN 11 Creatinine 0.75 Est GFR ( Amer) > 60 Est GFR (Non-Af Amer) Est GFR (MDRD) Non-Af > 60 Glucose 101 Calcium 9.9 Total Bilirubin 0.3 Direct Bilirubin 0.1 Neonat Total Bilirubin Not Reportable Neonat Direct Bilirubin Not Reportable Neonat Indirect Bili Not Reportable AST 17 ALT 11 Alkaline Phosphatase 101 Total Protein 8.0 Albumin 4.7 Lipase 138.8 EGFR Beta HCG, Quant < 2.39 Total Beta HCG NEGATIVE Urine Color Urine Appearance Urine pH Ur Specific [place] Urine Protein Urine Glucose (UA) Urine Ketones Urine Blood Urine Nitrite Urine Bilirubin Urine Urobilinogen Ur Leukocyte Esterase Urine WBC (Auto) Urine RBC (Auto) Urine Bacteria (Auto) Squamous Epi Cells Auto Urine Mucus (Auto) Urine Ascorbic Acid Critical Laboratory Results Reviewed: No Critical Results - Radiology Results Critical Radiology Results Reviewed: No Critical Results Discharge - Discharge Clinical Impression: Nausea, Colitis Abdominal pain Qualifiers: Abdominal location: unspecified location Qualified Code(s): R10.9 - Unspecified abdominal pain Condition: Stable Disposition: HOME, SELF-CARE Instructions: Ciprofloxacin ([facility]), Colitis, Nonspecific ([facility]), Metronidazole ([facility]) Additional Instructions: Return immediately for any new or worsening symptoms Followup with your primary care provider, call tomorrow to make a followup appointment Follow-up with your surgeon, call their office tomorrow for recheck Prescriptions: Ciprofloxacin HCl [Cipro 500 mg Tablet] 500 mg PO BID #20 tablet Metronidazole [Flagyl 500 mg Tablet] 500 mg PO TID #30 tablet Referrals: EZRA DIAZ MD [NO LOCAL MD] - Follow up as needed
== END 2020-10-01 23:25 | disposition home or self-care (01) ==
LOC: ER 16:42
DX: K52.9 Noninfective gastroenteritis and colitis, unspecified (principal); N85.4 Malposition of uterus; N85.2 Hypertrophy of uterus; R11.2 Nausea with vomiting, unspecified; R10.33 Periumbilical pain; R00.0 Tachycardia, unspecified; Z79.899 Other long term (current) drug therapy; Z98.890 Other specified postprocedural states; Z90.49 Acquired absence of other specified parts of digestive tract; Z87.442 Personal history of urinary calculi; Z88.6 Allergy status to analgesic agent; Z88.5 Allergy status to narcotic agent; Z91.048 Other nonmedicinal substance allergy status; Z91.010 Allergy to peanuts
CPT/HCPCS: 99285; 96361; 96374; 96375; 36415; 84702; 83690; 85025; 80053; 81001; 74177; S0119; J1170; J2405; J7030

== ENCOUNTER 2020-10-02 17:50 | Emergency (ER) | payer OTHER ==
[2020-10-02] MEDS ORDERED: ONDANSETRON HCL INJ/PF 4 MG/2 ML SDV IV ONE (19:14)
[2020-10-02] MEDS ORDERED: FENTANYL CITRATE INJ/PF 100 MCG/2 ML AMPUL IV ONE (19:14)
--- NOTE | 2020-10-02 19:18 | ER Document Report ---
ED Medical Screen (RME) - General Chief Complaint: Nausea/Vomiting Stated Complaint: FEVER/NAUSEA/VOMITING Time Seen by Provider: 10/02/20 19:10 Primary Care Provider: BAHMAN DIAZ FNP [Primary Care Provider] - Follow up as needed Mode of Arrival: Ambulatory Information source: Patient Notes: 25-year-old female presents emergency department chief complaint of abdominal pain. Patient reports she had a hernia repair approximately 1 week ago. She states she was seen in this emergency department earlier today and diagnosed with colitis. She reports she has been vomiting all day and is unable to keep down any of her medications. Exam limited due to seated position in triage, patient hunched over clutching her abdomen. I have greeted and performed a rapid initial assessment of this patient. A comprehensive ED assessment and evaluation of the patient, analysis of test results and completion of the medical decision making process will be conducted by additional ED providers. I have specifically instructed the patient or family members with the patient to immediately return to any nursing staff should anything change in the patient's condition or with their chief complaint. TRAVEL OUTSIDE OF THE [place] IN LAST 30 DAYS: No - Related Data Allergies/Adverse Reactions: codeine Allergy (Verified 08/10/20 15:39) lavender (Lavandula angustifolia) Allergy (Verified 08/10/20 15:39) morphine Allergy (Verified 08/10/20 15:39) peanut Allergy (Verified 08/10/20 15:39) tramadol Allergy (Verified 08/10/20 15:39) ibuprofen Adverse Reaction (Verified 08/10/20 15:39) Home Medications: Metoprolol BID Past Medical History - Past Medical History Cardiac Medical History: Denies: Hx Coronary Artery Disease, Hx Heart Attack, Hx Hypertension Pulmonary Medical History: Denies: Hx Asthma, Hx Bronchitis, Hx COPD, Hx Pneumonia Neurological Medical History: Denies: Hx Cerebrovascular Accident, Hx Seizures Renal/ Medical History: Reports: Hx Kidney Stones, Hx Ovarian Cysts Musculoskeltal Medical History: Denies Hx Arthritis Past Surgical History: Reports: Hx Adenoidectomy, Hx Cholecystectomy, Hx Kidney (Renal Surgery), Hx Tonsillectomy Physical Exam - Vital signs Vitals: Temp Pulse Resp BP Pulse Ox 98.3 F 101 H 16 115/65 100 10/02/20 18:05 10/02/20 18:05 10/02/20 18:05 10/02/20 18:05 10/02/20 18:05 Course - Vital Signs Vital signs: Temp Pulse Resp BP Pulse Ox 98.3 F 101 H 16 115/65 100 10/02/20 18:05 10/02/20 18:05 10/02/20 18:05 10/02/20 18:05 10/02/20 18:05 Doctor's Discharge - Discharge Referrals: BAHMAN DIAZ FNP [Primary Care Provider] - Follow up as needed
[2020-10-02 19:38] LABS: ABSOLUTE EOSINOPHILS # (AUTO) 0.1 10^3/uL (0.0-0.6); ABSOLUTE LYMPHOCYTES (AUTO) 1.4 10^3/uL (0.5-4.7); ABSOLUTE MONOCYTES (AUTO) 0.3 10^3/uL (0.1-1.4); ABSOLUTE NEUT (AUTO) 4.1 10^3/uL (1.7-8.2); BASOPHILS % (AUTO) 0.7 % (0-2); EOSINOPHILS % (AUTO) 2.4 % (0-6); HEMATOCRIT 42.7 % (36.0-47.0); HEMOGLOBIN 14.5 g/dL (12.0-15.5); LYMPHOCYTES % (AUTO) 23.5 % (13-45); MEAN CORPUSCULAR HEMOGLOBIN 28.4 pg (27.0-33.4); MEAN CORPUSCULAR HGB CONC 33.9 g/dL (32.0-36.0); MEAN CORPUSCULAR VOLUME 84 fl (80-97); MONOCYTES % (AUTO) 4.6 % (3-13); PLATELET COUNT 328 10^3/uL (150-450); RED BLOOD COUNT 5.09 10^6/uL (3.72-5.28); RED CELL DISTRIBUTION WIDTH 13.4 % (11.5-14.0); SEGMENTED NEUTROPHILS % (AUTO) 68.8 % (42-78); TOTAL CELLS COUNTED % (AUTO) 100 %; WHITE BLOOD COUNT 5.9 10^3/uL (4.0-10.5)
[2020-10-02 19:56] LABS: ALKALINE PHOSPHATASE 101 U/L (38-126); ANION GAP 14 (5-19); ASPARTATE AMINO TRANSFERASE 26 U/L (14-36); BILIRUBIN,DIRECT 0.4 mg/dL (0.0-0.4); BILIRUBIN,TOTAL 0.7 mg/dL (0.2-1.3); BLOOD UREA NITROGEN 10 mg/dL (7-20); CALCIUM 10.2 mg/dL (8.4-10.2); CARBON DIOXIDE 23 mmol/L (22-30); CHLORIDE 104 mmol/L (98-107); GLUCOSE 99 mg/dL (75-110); POTASSIUM 5.2 mmol/L (3.6-5.0); TOTAL PROTEIN 8.5 g/dL (6.3-8.2)
[2020-10-03] MEDS ORDERED: PROMETHAZINE HCL 25 MG SUPP.RECT PR ONE (00:15)
[2020-10-03] MEDS ORDERED: ACETAMINOPHEN 1,000 MG/100 ML RTUPB IV ONE (00:59)
[2020-10-03] MEDS ORDERED: PROMETHAZINE HCL 25 MG SUPP (4 SUPP/ER DISP) PR ONE (01:16)
--- NOTE | 2020-10-03 01:31 | ER Document Report ---
ED General - General Chief Complaint: Nausea/Vomiting Stated Complaint: FEVER/NAUSEA/VOMITING Time Seen by Provider: 10/02/20 19:10 Primary Care Provider: BAHMAN DIAZ FNP [Primary Care Provider] - Follow up in 3-5 days Mode of Arrival: Ambulatory Notes: 25-year-old female with umbilical hernia repair approximately 1 week ago seen in ED approximately 1 day prior for abdominal pain and diagnosed with a colitis at that time and discharged on antibiotics presents with vomiting since discharge from ED. Pain has been constant without any worsening symptoms. Patient endorses having a fever at home. Patient says that she was given antibiotics during her surgery and that pain started immediately after she had the surgery. Patient also complains of scant bright blood blood in stool. Has been having approximately 2 loose stools per day for the past week. Patient denies any dizziness, fainting, immunocompromise history, worsening pain, prior C. difficile infection, recent antibiotics prior to the day that symptoms began. TRAVEL OUTSIDE OF THE [place] IN LAST 30 DAYS: No - Related Data Allergies/Adverse Reactions: codeine Allergy (Verified 08/10/20 15:39) lavender (Lavandula angustifolia) Allergy (Verified 08/10/20 15:39) morphine Allergy (Verified 08/10/20 15:39) peanut Allergy (Verified 08/10/20 15:39) tramadol Allergy (Verified 08/10/20 15:39) ibuprofen Adverse Reaction (Verified 08/10/20 15:39) Home Medications: Metoprolol BID Past Medical History - General Information source: Patient - Social History Smoking Status: Unknown if Ever Smoked Family History: Reviewed & Not Pertinent Patient has homicidal ideation: No - Past Medical History Cardiac Medical History: Denies: Hx Coronary Artery Disease, Hx Heart Attack, Hx Hypertension Pulmonary Medical History: Denies: Hx Asthma, Hx Bronchitis, Hx COPD, Hx Pneumonia Neurological Medical History: Denies: Hx Cerebrovascular Accident, Hx Seizures Renal/ Medical History: Reports: Hx Kidney Stones, Hx Ovarian Cysts Musculoskeletal Medical History: Denies Hx Arthritis Past Surgical History: Reports: Hx Adenoidectomy, Hx Cholecystectomy, Hx Kidney (Renal Surgery), Hx Tonsillectomy Review of Systems - Review of Systems Notes: REVIEW OF SYSTEMS: CONSTITUTIONAL : + fever, chills, or sweats. EENT: Denies recent cold/sinus symptoms, denies throat pain CARDIOVASCULAR: Denies chest pain, MIKEL RESPIRATORY: Denies cough, denies shortness of breath. GASTROINTESTINAL: + abdominal pain, +nausea/vomiting. GENITOURINARY: Denies difficulty urinating, painful urination. FEMALE GENITOURINARY: Denies abnormal vaginal bleeding, vaginal discharge. MUSCULOSKELETAL: Denies neck pain, back pain. SKIN: Denies rash or skin lesions. HEMATOLOGIC : Denies easy bruising or bleeding. LYMPHATIC: Denies swollen, enlarged glands. NEUROLOGICAL: Denies headache, denies change in gait. PSYCHIATRIC: Denies anxiety or stress or depression. Physical Exam - Vital signs Vitals: Temp Pulse Resp BP Pulse Ox 98.3 F 101 H 16 115/65 100 10/02/20 18:05 10/02/20 18:05 10/02/20 18:05 10/02/20 18:05 10/02/20 18:05 - Notes Notes: PHYSICAL EXAMINATION: GENERAL: Well-appearing, well-nourished and in no acute distress. HEAD: Atraumatic, normocephalic. EYES: Pupils equal round and appropriate constriction, sclera anicteric, conjunctiva are normal. ENT: nares patent, moist mucous membranes. NECK: Normal range of motion, supple without lymphadenopathy LUNGS: Breath sounds clear to auscultation bilaterally and equal. No wheezes rales or rhonchi. HEART: Regular rate and rhythm without murmurs ABDOMEN: Soft, mild diffuse abdominal tenderness, no guarding, no rebound, no masses, no CVA tenderness, light brown/yellow stool on rectal exam without any gross blood which was faintly guaiac positive EXTREMITIES: Normal range of motion, no pitting or edema. No cyanosis. NEUROLOGICAL: Awake, alert, conversing appropriately, moves all extremities spontaneously. PSYCH: Normal mood, normal affect. SKIN: Warm, Dry, normal turgor, no rashes or lesions noted. Course - Re-evaluation Re-evalutation: 10/03/20 06:28 Patient with continued colitis symptoms unable to tolerate p.o. after discharge yesterday. Patient's exam vital signs and lab work reassuring, well-appearing, benign abdominal exam. Unlikely C. difficile given that symptom started so shortly after antibiotic administration and no other risk factors, but given bloody stool ordered C. difficile antigen but patient refused to stay to give sample. Gave Phenergan but patient refused to stay for p.o. trial because got called into work. Patient understood the risk of leaving prior to completion of evaluation and treatment and had capacity to make that decision. Gave follow-up instructions, patient has antibiotics from prior visit, disc harged with Phenergan and return precautions. - Vital Signs Vital signs: Temp Pulse Resp BP Pulse Ox 98.3 F 85 17 116/66 99 10/03/20 01:42 10/03/20 01:42 10/03/20 01:42 10/03/20 01:42 10/03/20 01:42 - Laboratory Results Result Diagrams: 10/02/20 19:11 10/02/20 19:11 Laboratory Results Interpreted: 10/02/20 19:11 Potassium 5.2 H Total Protein 8.5 H Critical Laboratory Results Reviewed: No Critical Results - Radiology Results Critical Radiology Results Reviewed: No Critical Results Discharge - Discharge Clinical Impression: Colitis Abdominal pain Qualifiers: Abdominal location: left lower quadrant Qualified Code(s): R10.32 - Left lower quadrant pain Disposition: AGAINST MEDICAL ADVICE Additional Instructions: Return to the emergency department anytime to complete your evaluation. Follow- up with your primary doctor and surgeon within the next 3 days. Especially consider returning if you have any worsening pain, inability to keep down liquids, dizziness, fainting, continued bloody stool. Referrals: BAHMAN DIAZ FNP [Primary Care Provider] - Follow up in 3-5 days
[2020-10-03] MEDS ORDERED: HYDROCODONE/ACETAMINOPHEN 5-325 MG (6 TAB/ER DISP) PO PRN (01:38)
[2020-10-03 01:44] VITALS: BP 116/66
== END 2020-10-03 01:42 | disposition left against medical advice (07) ==
LOC: ER 17:50
DX: K52.9 Noninfective gastroenteritis and colitis, unspecified (principal); R11.2 Nausea with vomiting, unspecified; K92.1 Melena; R10.817 Generalized abdominal tenderness; R10.32 Left lower quadrant pain; Z98.890 Other specified postprocedural states; Z79.899 Other long term (current) drug therapy; Z88.6 Allergy status to analgesic agent; Z88.5 Allergy status to narcotic agent; Z91.048 Other nonmedicinal substance allergy status; Z91.010 Allergy to peanuts; Z53.29 Procedure and treatment not carried out because of patient's decision for other reasons
CPT/HCPCS: 99284; 96375; 96365; 36415; 83690; 85025; 80053; J3010; J3490 ×2; J2405; J0131

== ENCOUNTER 2020-10-04 19:29 | Emergency (ER) | payer OTHER ==
[2020-10-04] MEDS ORDERED: FENTANYL CITRATE INJ/PF 100 MCG/2 ML AMPUL IV ONE (21:24)
[2020-10-04] MEDS ORDERED: NORMAL SALINE 1000 ML 1,000 ML IV ONE (21:24)
[2020-10-04] MEDS ORDERED: ONDANSETRON HCL INJ/PF 4 MG/2 ML SDV IV ONE (21:24)
--- NOTE | 2020-10-04 21:32 | ER Document Report ---
ED Medical Screen (RME) - General Chief Complaint: Vomiting Stated Complaint: VOMITING Time Seen by Provider: 10/04/20 21:19 Primary Care Provider: BAHMAN DIAZ FNP [Primary Care Provider] - Follow up as needed Notes: HPI: 25-year-old female presenting for reevaluation of abdominal pain bloody diarrhea and vomiting. Patient had hernia repair in [place] 1 week ago. Patient states that she had developed vomiting and diarrhea after the procedure and came to [facility] several days ago and was diagnosed with colitis. Patient was placed on Cipro and Flagyl. Patient feels no better. She is continuing to thr ow up constantly despite rectal Phenergan. She states the diarrhea is nonbloody. She called her pharmacy services director in [place] who told her they would do testing next week. Patient states that she can no longer tolerate being at home with the increased pain and inability to eat or drink so presents again to the emergency department. PHYSICAL EXAMINATION: Patient is uncomfortable appearing. She has tenderness across the upper abdomen. She is moderately tachycardic. I have greeted and performed a rapid initial assessment of this patient. A comprehensive ED assessment and evaluation of the patient, analysis of test results and completion of medical decision making process will be conducted by an additional ED providers. Please note that clinical decision making for this patient was made during the 2019 pandemic of novel coronavirus which caused a significant strain on the healthcare system including at this particular facility. Criteria for admission discharge and level of care decisions as well as treatment decisions have necessarily changed TRAVEL OUTSIDE OF THE [place] IN LAST 30 DAYS: No - Related Data Allergies/Adverse Reactions: codeine Allergy (Verified 08/10/20 15:39) lavender (Lavandula angustifolia) Allergy (Verified 08/10/20 15:39) morphine Allergy (Verified 08/10/20 15:39) peanut Allergy (Verified 08/10/20 15:39) tramadol Allergy (Verified 08/10/20 15:39) ibuprofen Adverse Reaction (Verified 08/10/20 15:39) Past Medical History - Past Medical History Cardiac Medical History: Denies: Hx Coronary Artery Disease, Hx Heart Attack, Hx Hypertension Pulmonary Medical History: Denies: Hx Asthma, Hx Bronchitis, Hx COPD, Hx Pneumonia Neurological Medical History: Denies: Hx Cerebrovascular Accident, Hx Seizures Renal/ Medical History: Reports: Hx Kidney Stones, Hx Ovarian Cysts Musculoskeltal Medical History: Denies Hx Arthritis Past Surgical History: Reports: Hx Adenoidectomy, Hx Cholecystectomy, Hx Kidney (Renal Surgery), Hx Tonsillectomy Physical Exam - Vital signs Vitals: Temp Pulse Resp BP Pulse Ox 97.6 F 128 H 20 109/67 100 10/04/20 19:56 10/04/20 19:56 10/04/20 19:56 10/04/20 19:56 10/04/20 19:56 Course - Vital Signs Vital signs: Temp Pulse Resp BP Pulse Ox 97.6 F 128 H 20 109/67 100 10/04/20 19:56 10/04/20 19:56 10/04/20 19:56 10/04/20 19:56 10/04/20 19:56 Doctor's Discharge - Discharge Referrals: BAHMAN DIAZ FNP [Primary Care Provider] - Follow up as needed
[2020-10-04 22:39] LABS: APPEARANCE,URINE CLOUDY; BILIRUBIN,URINE NEGATIVE (NEGATIVE); COLOR,URINE YELLOW; GLUCOSE, URINE NEGATIVE (NEGATIVE); KETONES,URINE TRACE mg/dL (NEGATIVE); LEUKOCYTE ESTERASE,URINE SMALL (NEGATIVE); NITRITE,URINE NEGATIVE (NEGATIVE); PROTEIN,URINE 30 mg/dL (NEGATIVE); URINE SPECIFIC GRAVITY 1.028; UROBILINOGEN,URINE NEGATIVE mg/dL (<2.0)
--- NOTE | 2020-10-04 23:58 | ER Document Report ---
ED General - General Chief Complaint: Nausea/Vomiting/Diarrhea Stated Complaint: VOMITING Time Seen by Provider: 10/04/20 21:19 Primary Care Provider: BAHMAN DIAZ FNP [Primary Care Provider] - Follow up as needed TRAVEL OUTSIDE OF THE [place] IN LAST 30 DAYS: No - HPI Context: Chief Complaint: [Nausea vomiting diarrhea and abdominal pain] [This is a 25-year-old female presenting with a chief complaint of nausea, vomiting, diarrhea and abdominal pain. Patient states that she had hernia repair and the hospital in [place] approximately 1 week ago. Patient states that since then she developed nausea, vomiting and diarrhea after the procedure and was seen at this facility basically 3 days ago for nausea, vomiting, diarrhea and abdominal pain. Patient was found to have colitis on CAT scan and was prescribed Cipro and Flagyl. Patient eventually going to be feel ing better and was discharged with rectal Phenergan and a "to go" pack of [place] 5 325 mg tablets total 6 when she was discharged. Patient states that she is having so much nausea, vomiting and abdominal pain that she cannot "even keep down broth." Patient states she is concerned that she is getting dehydrated and states she is currently trying to breast-feed at home with limited success. Patient states that she has formula to supplement with given her breast-feeding difficulties. Apparently the provider that saw the patient during the last visit wanted to get a C. difficile antigen but the patient refused to stay to give a sample. Patient was also given Phenergan and again refused to stay for p.o. trial because she stated her got called into work. When asked if the patient was on medications, she listed several but did not mention any narcotic prescriptions. Patient did however ask if she was going to be given something for pain and if something was ordered. This MD stepped out of the room to check and see what was ordered and also check the [place] controlled substance database. Patient had filled a prescription for 5 mg oxycodone on 09/27/2020. 30 tablets were dispensed and it is shown to be a 7-day supply. Patient did not mention that she had this prescription filled. Patient states she had some "leftover" pain medication from her surgery that she really has used for pain but does not "have any of that left." When this MD went back in to the room the patient stated that she had" totally forgot" that she was given a to go pack of [place] during her last visit. And when asked about the oxycodone 5 mg tablet prescription she had filled, the patient stated that she was told by the provider that wrote the prescription that she could take to every 6 hours as needed for pain. ] History obtained from [patient] Symptoms began:[Patient stated symptoms started right after surgery] Onset: [Sudden] Timing: [Sudden] Quality: [Sharp] Intensity: [5 out of 5] Location: [Abdomen] Radiation: [Denies] [The pain does not migrate to a new location.] Aggravating factors: [none] Relieving factors: [none] [Denies] SOB Positive nausea Positive vomiting [Denies] sweats [Denies] fever [Denies] cough [Denies] calf or leg swelling or pain - Related Data Allergies/Adverse Reactions: codeine Allergy (Verified 08/10/20 15:39) lavender (Lavandula angustifolia) Allergy (Verified 08/10/20 15:39) morphine Allergy (Verified 08/10/20 15:39) peanut Allergy (Verified 08/10/20 15:39) tramadol Allergy (Verified 08/10/20 15:39) ibuprofen Adverse Reaction (Verified 08/10/20 15:39) Past Medical History - General Information source: Patient - Social History Smoking Status: Unknown if Ever Smoked Chew tobacco use (# tins/day): No Frequency of alcohol use: None Drug Abuse: None Family History: Reviewed & Not Pertinent Patient has homicidal ideation: No - Past Medical History Cardiac Medical History: Denies: Hx Coronary Artery Disease, Hx Heart Attack, Hx Hypertension Pulmonary Medical History: Denies: Hx Asthma, Hx Bronchitis, Hx COPD, Hx Pneumonia Neurological Medical History: Denies: Hx Cerebrovascular Accident, Hx Seizures Renal/ Medical History: Reports: Hx Kidney Stones, Hx Ovarian Cysts Musculoskeletal Medical History: Denies Hx Arthritis Past Surgical History: Reports: Hx Adenoidectomy, Hx Cholecystectomy, Hx Kidney (Renal Surgery), Hx Tonsillectomy Review of Systems - Review of Systems Notes: Review of systems as below unless otherwise stated in HPI. CONSTITUTIONAL [No] fever, [No] chills. EYES [No] eye pain. ENT [No] URI symptoms, [No] sore throat, [No] ear pain. CARDIOVASCULAR [No] chest pain, [No] palpitations, [No] edema. RESPIRATORY [No] Cough, [No] SOB, [No] wheezing. GASTROINTESTINAL Positive abdominal pain, positive nausea, positive diarrhea, positive vomiting, [No] constipation, [No] melena, [No] rectal bleeding. GENITOURINARY [No] dysuria, [No] urinary frequency, [No] hematuria, [No] urinary urgency, [No] vaginal discharge, [No] vaginal bleeding. MUSCULOSKELETAL [No] Back pain. SKIN [No] Rash. NEUROLOGIC [No] Headache, [No] recent seizures, [No] paralysis,[No] parathesias. ENDOCRINE [No] polyuria. HEMO/LYMPATIC [No] easy brusing PSYCHIATRIC [No] depression. Physical Exam - Vital signs Vitals: Temp 97.6 F 10/04/20 19:30 - Notes Notes: CONSTITUTIONAL [Vital signs reviewed, Patient appears comfortable, Alert and oriented X 3, Normal stature. Patient appears well-hydrated and nontoxic] HEAD [Atraumatic, Normocephalic.] EYES [Eyes are normal to inspection, No discharge from eyes, Extraocular muscles intact, Sclera are normal, Conjunctiva are normal.] ENT [External ears normal to inspection, Nose examination normal, Mouth normal to inspection.] NECK [Normal ROM, No jugular venous distention, No meningeal signs, ] RESPIRATORY CHEST [Chest is nontender, Breath sounds normal, No respiratory distress.] CARDIOVASCULAR [RRR, No murmurs, Normal S1 S2, No rub, No gallop.] ABDOMEN [Abdomen is nontender except in the area adjacent to where the incision for the umbilical hernia repair was made., No pulsatile masses, No other masses, Bowel sounds normal, No distension, No peritoneal signs, No hernias.] BACK [There is no CVA Tenderness, There is no tenderness to palpation, Normal inspection.] UPPER EXTREMITY [Inspection normal, No cyanosis, No clubbing, No edema, LOWER EXTREMITY [Inspection normal, No cyanosis, No clubbing, No edema, No calf tenderness, NEURO [No focal motor deficits, No focal sensory deficits, Speech normal.] SKIN [Skin is warm, Skin is dry, Skin is normal color.] PSYCHIATRIC [Normal affect. ] Course - Re-evaluation Re-evalutation: 10/05/20 00:33 Differential diagnosis: Colitis, dehydration, electrolyte abnormality 10/05/20 03:35 Medical decision making: Patient's pain has been relieved with fentanyl and nausea improved with Zofran. Patient states she feels much better after receiving these medications along with IV fluids. Patient states that the Zofran she currently has at the house is not the ODT type and is asking if she can be sent home with a "to go" pack of Zofran. Patient states she has 4 of the [place] tablets left at home from her prior visit here and has requesting a "couple more" to get her through the weekend until she sees her drosser on Wednesday. The etiology of the patient's pain, nausea vomiti ng and diarrhea at this time is not clear, despite her evaluation today in the emergency department. This MD is going to honor the patient's request for some additional pain medication and nausea medication. Patient is instructed not to breast-feed while taking these medications. Patient is also complaining of some heartburn symptoms which I will give her Pepcid for now. I will also give her s ome discharge instructions about using and over the counter PPI such as Zegerid and medications such as famotidine for her symptoms. 10/05/20 04:02 Patient's C. difficile and urine has resulted as positive. This MD discussed the results of the C. difficile study with the patient and told her I would prescribe some additional Flagyl for her to take to get rid of the C. difficile infection. Given her positive C. difficile test and recent evidence of colitis on CAT scan, it seems that the etiology for the patient's symptoms is likely secondary to C. difficile colitis. Patient states financially things are tight and it is difficult for her to pay for medications. Gave the patient Macrobid initially for her UTI but saw that it was very expensive on good Rx. Going to write her for Keflex which is much cheaper as well as some Flagyl and will give her coupons for both medications to help her with the cost. Results of ED MSE discussed with patient. All questions were answered prior to discharge. Emergency signs and symptoms, reasons to return to the emergency department discussed with patient. - Vital Signs Vital signs: Temp Pulse Resp BP Pulse Ox 97.6 F 128 H 20 109/67 100 10/04/20 19:56 10/04/20 19:56 10/04/20 19:56 10/04/20 19:56 10/04/20 19:56 - Laboratory Results Result Diagrams: 10/05/20 00:00 10/05/20 00:00 Laboratory Results Interpreted: 10/04/20 22:18 Urine Protein 30 H Urine Ketones TRACE H Ur Leukocyte Esterase SMALL H Critical Laboratory Results Reviewed: Yes Attending or Supervising Physician who Reviewed Labs: TERRY ZAMORA IV - C. difficile antigen positive - Radiology Results Critical Radiology Results Reviewed: No Critical Results Attending or Supervising Physician who Reviewed Radiology: NOAHTERRY VELAZCO IV Discharge - Discharge Clinical Impression: Clostridium difficile colitis UTI (urinary tract infection) Qualifiers: Hematuria presence: without hematuria Condition: Stable Disposition: HOME, SELF-CARE Instructions: Urinary Tract Infection ([facility]), C. (Clostridium) Difficile Infec tion ([facility]) Additional Instructions: Return to the Emergency Department without delay if any worse. HOME CARE INSTRUCTIONS & INFORMATION: Thank you for choosing us for your medical needs. We hope you're satisfied with the care you received. After you leave, you must properly care for your problem and, at the same time, observe its progress. Any condition can change. Some illnesses can change rapidly over hours or days. If your condition worsens, return to the Emergency Department or see your physician promptly. ABOUT YOUR X-RAYS AND EKG'S: If you had an EKG or X-rays taken, they have been read by the Emergency Physician. The X-rays and EKG's will also be read by a Radiologist or Medical Technologist Chief within 24 hours. If discrepancies are noted, you will be notified by telephone. Please be certain the ED has a correct telephone number & address where you can be reached. Also, realize that some fractures or abnormalities do not show up on initial X-rays. If your symptoms continue, see your physician. ABOUT YOUR LABORATORY TEST: If you had laboratory tests, the results have been reviewed by the Emergency Physician. Some test results (for example cultures) may not be available for several days. You will be contacted if any test result shows you need additional treatment. Please be certain the ED has a correct telephone number and address where you can be reached. ABOUT YOUR MEDICATIONS: You will receive instructions on how to take your medic ine on the prescription label you receive. Additional information may be provided by the Pharmacy. If you have questions afterwards, call the ED for clarification or further instructions. Some prescribed medications may cause drowsiness. Do not perform tasks such as driving a car or operating machinery without consulting your Pharmacist. If you feel you need a refill of pain medication, your condition will need re-evaluation. Please do not call for a refill of any medication. ABOUT YOUR SIGNATURE: Signature of this document acknowledges to followin. Understanding that you received emergency treatment and that you may be released before al medical problems are known or treated. Please be certain the ED has a correct phone number & address where you can be reached. 2. Acknowledgement that you will arrange for follow-up care as recommended. 3. Authorization for the Emergency Physician to provide information to your follow-up Physician in order to maximize your care. AT ANY TIME, IF YOUR SYMPTOMS CHANGE SIGNIFICANTLY OR WORSEN OR YOU DEVELOP NEW SYMPTOMS, RETURN TO THE EMERGENCY DEPARTMENT IMMEDIATELY FOR RE-EVALUATION. OUR GOAL IS TO PROVIDE EXCELLENT MEDICAL CARE! WE HOPE THAT WE HAVE MET YOUR EXPECTATIONS DURING YOUR EMERGENCY DEPARTMENT VISIT AND THAT YOU FEEL YOU HAVE RECEIVED EXCELLENT CARE! Prescriptions: Metronidazole [Flagyl 500 mg Tablet] 500 mg PO TID 10 Days #30 tablet Cephalexin Monohydrate [Keflex 500 mg Capsule] 500 mg PO Q6H 7 Days #28 capsule Referrals: BAHMAN DIAZ FNP [Primary Care Provider] - Follow up as needed
[2020-10-05] MEDS ORDERED: FENTANYL CITRATE INJ/PF 100 MCG/2 ML AMPUL IV ONE (00:15)
[2020-10-05] MEDS ORDERED: NORMAL SALINE 1000 ML 1,000 ML IV ONE (00:15)
[2020-10-05] MEDS ORDERED: ONDANSETRON HCL INJ/PF 4 MG/2 ML SDV IV ONE (00:15)
[2020-10-05 00:16] LABS: ABSOLUTE BASOPHILS # (AUTO) 0.1 10^3/uL (0.0-0.2); ABSOLUTE EOSINOPHILS # (AUTO) 0.1 10^3/uL (0.0-0.6); ABSOLUTE LYMPHOCYTES (AUTO) 2.3 10^3/uL (0.5-4.7); ABSOLUTE MONOCYTES (AUTO) 0.5 10^3/uL (0.1-1.4); ABSOLUTE NEUT (AUTO) 5.4 10^3/uL (1.7-8.2); BASOPHILS % (AUTO) 1.2 % (0-2); EOSINOPHILS % (AUTO) 0.7 % (0-6); HEMATOCRIT 40.3 % (36.0-47.0); HEMOGLOBIN 13.7 g/dL (12.0-15.5); LYMPHOCYTES % (AUTO) 27.5 % (13-45); MEAN CORPUSCULAR HEMOGLOBIN 28.1 pg (27.0-33.4); MEAN CORPUSCULAR HGB CONC 33.9 g/dL (32.0-36.0); MEAN CORPUSCULAR VOLUME 83 fl (80-97); MONOCYTES % (AUTO) 6.5 % (3-13); PLATELET COUNT 337 10^3/uL (150-450); RED BLOOD COUNT 4.88 10^6/uL (3.72-5.28); SEGMENTED NEUTROPHILS % (AUTO) 64.1 % (42-78); TOTAL CELLS COUNTED % (AUTO) 100 %; WHITE BLOOD COUNT 8.4 10^3/uL (4.0-10.5)
[2020-10-05 00:30] LABS: ALBUMIN 4.7 g/dL (3.5-5.0); ALKALINE PHOSPHATASE 108 U/L (38-126); ANION GAP 9 (5-19); ASPARTATE AMINO TRANSFERASE 15 U/L (14-36); BILIRUBIN,DIRECT 0.2 mg/dL (0.0-0.4); BILIRUBIN,TOTAL 0.4 mg/dL (0.2-1.3); BLOOD UREA NITROGEN 14 mg/dL (7-20); CARBON DIOXIDE 25 mmol/L (22-30); CHLORIDE 105 mmol/L (98-107); GLUCOSE 93 mg/dL (75-110); POTASSIUM 4.1 mmol/L (3.6-5.0)
--- NOTE | 2020-10-05 02:10 | RADIOLOGY REPORT (SQ) ---
EXAM DESCRIPTION: CT ABDOMEN PELVIS WITH IV CONTRAST COMPLETED DATE/TME: 10/05/2020 01:32 CLINICAL HISTORY: 25 years Female, abd pain Comparison: Four days prior. Technique: IV contrast. Coronal and sagittal reformat. This exam was performed according to our departmental dose-optimization program, which includes automated exposure control, adjustment of the mA and/or kV according to patient size and/or use of iterative reconstruction technique. [facility]: Dose Right [facility]: CareDose [facility]: Dose Right [facility]: Teradose 4D [facility]: AriadNEXT LIMITATIONS: None Findings: Colonic diverticulosis. Cholecystectomy. Moderate fluid distention of the endometrial cavity and prominent size of the uterus, nonspecific. Clinical history of two months . 2.5 cm cystic prominence of the left ovary within normal limits. No routine follow-up indicated. Small single gas bubble and minimal fat streaking at the supraumbilical subcutaneous fat, interval improvement consistent with history of umbilical hernia repair. Appendicolith(s) and/or retained contrast. No evidence of appendicitis. 0.2 cm right renal stone. No hydronephrosis nor hydroureter. No ascites. No pneumoperitoneum. No bowel obstruction. No evidence of abdominal aortic aneurysm. No gross evidence of thecal sac/cord or nerve root compression. Inferior thorax, liver, pancreas, spleen, adrenals, renal system, gastrointestinal tract, pelvic organs, lymphatics, vasculature, and musculoskeleton appear otherwise unremarkable. IMPRESSION: 1. Small single gas bubble and minimal fat streaking at the supraumbilical subcutaneous fat, interval improvement consistent with history of umbilical hernia repair. 2. Moderate fluid distention of the endometrial cavity and prominent size of the uterus, nonspecific. Clinical history of two months . Consider ultrasound surveillance as clinically warranted. 3. 0.2 cm right renal stone. No hydronephrosis and no hydroureter.
[2020-10-05] MEDS ORDERED: HYDROCODONE/ACETAMINOPHEN 5-325 MG (6 TAB/ER DISP) PO PRN (03:34)
[2020-10-05] MEDS ORDERED: ONDANSETRON ODT 4 MG TAB (6 TAB/ER DISP) PO PRN (03:34)
[2020-10-05 03:39] LABS: C DIFFICILE GDH POSITIVE (NEGATIVE)
[2020-10-05] MEDS ORDERED: NITROFURANTOIN MONOHYD/M-CRYST 100 MG CAPSULE PO ONE (03:43)
[2020-10-05] MEDS ORDERED: FAMOTIDINE 20 MG TABLET PO ONE (03:44)
[2020-10-05] MEDS ORDERED: METRONIDAZOLE 500 MG TABLET PO ONE (03:58)
[2020-10-05 04:46] VITALS: BP 112/74
== END 2020-10-05 04:35 | disposition home or self-care (01) ==
LOC: ER 19:29
DX: A04.72 Enterocolitis due to Clostridium difficile, not specified as recurrent (principal); N39.0 Urinary tract infection, site not specified; N20.0 Calculus of kidney; R11.2 Nausea with vomiting, unspecified; R10.9 Unspecified abdominal pain; Z98.890 Other specified postprocedural states; Z88.6 Allergy status to analgesic agent; Z88.5 Allergy status to narcotic agent; Z91.048 Other nonmedicinal substance allergy status; Z91.010 Allergy to peanuts
CPT/HCPCS: 99285; 96361; 96374; 96375; 36415; 83690; 85025; 80053; 81001; 87493 ×2; 87324; 87449; 74177; J3010; J2405; J7030; J8499

== ENCOUNTER 2020-10-10 01:06 | Emergency (ER) | payer OTHER ==
--- OUTSIDE RECORDS SUMMARY | 2020-10-10 03:45 | XMS REPORT ---
:1995 Author Organization [facility] Address [facility] [address] [place] [id number] Care Team Providers Name Role Phone Pantera Cox Primary Care Physician Unavailable Laura GROVE Attending Clinician Unavailable Allergies, Adverse Reactions, Alerts Allergy Allergy Status Severity Reaction(s) Onset Inactive Treating C omments Name Type Date Date Clinician Cashew Nut Allergy to Active Rash substance Codeine Allergy to Active Rash substance Lavender Allergy to Active Rash (Lavandula substance Angustifol ia) Morphine Allergy to Active Rash substance Tramadol Allergy to Active Vomiting substance Medications Ordered Filled Start Stop Current Ordering Indication Dosage Frequency Signature Comments Components Medication Medication Date Date Medication? Clinician (SIG) Name Name Flomax 0.4 No 1capsul Q1D Flomax 0.4 mg capsule e(s) mg capsule Take 1 Take 1 capsule capsule every day every day by oral by oral route. route. metoprolol No 1 BID metoprolol succinate succinate ER 25 mg ER 25 mg tablet,exte tablet,ext nded ended release 24 release 24 hr Take 1 hr Take 1 tablet tablet twice a day twice a by oral day by route. oral route. Problems Condition Condition Condition Status Onset Resolution Last Treatin g Comments Name Details Category Date Date Treatment Clinician Date Kidney Kidney Problem Active 2019-09 stone Stone 2 00:00: 00 Procedures Procedure Date / Time Performed Performing Clinician Jean jacques Stent/Shunt 2020-05-21 00:00:00 Other 2019-12-20 00:00:00 Exploratory Laparotomy 2019-11-19 00:00:00 Other 2018-06-20 00:00:00 [place] Teeth Extraction 2016-01-19 00:00:00 Cholecystectomy 2013-08-20 00:00:00 Tonsillectomy/Adenoidectomy 2010-09-20 00:00:00 Results Test Description Test Time Test Comments Text Results Atomic Results Result Comments SARS-CoV-2 RNA Resp Ql MAURICIO+probe 2020-09-25 00:00:00 Test Item Value Reference Range Comments SARS-CoV-2 RNA Resp Ql MAURICIO+probe Not detected [place] [facility] Case ID: (test code = [id number]) [id number] SARS-CoV-2 RNA Resp Ql [id number] 00:00:00 Test Item Value Reference Range Comments SARS-CoV-2 RNA Resp Ql Negative [place] [facility] Case ID: MAURICIO+probe (test code = COVID_103 [id number]) SARS-CoV-2 RNA Resp Ql [id number] 00:00:00 Test Item Value Reference Range Comments SARS-CoV-2 RNA Resp Ql Not detected [place] [facility] Case MAURICIO+probe (test code = ID: [id number]) SARS-CoV-2 RNA Resp Ql [id number] 00:00:00 Test Item Value Reference Range Comments SARS-CoV-2 RNA Resp Ql Negative [place] [facility] Case ID: MAURICIO+probe (test code = COVID_103 [id number]) Assessments Condition Name Status Diagnosis Date Treating Clinici an Ventral incisional hernia Active 2020-09-09 16:44:06 Encounters Start End Encounter Admission Attending Care Care Encounter Date/Time Date/Time Type Type Clinicians Facility Department ID 2020-09-27 2020-09-27 Outpatient TRISTIN BRANNON [facility] [id number] 01:53:00 01:53:00 55 2020-09-09 2020-09-09 Tristin Streeter [id number] 00:00:00 00:00:00 MD Bryan: Surgical Surgical [id number] [facility] [address], Ph. Immunizations Ordered Immunization Filled Immunization Date Status Commen ts Refusal Reason Name Name pneumococcal 2019-06-20 Completed conjugate PCV 7 00:00:00 influenza, 2019-06-20 Completed injectable, 00:00:00 quadrivalent Payers Payer Name Policy Type Policy Number Effective Date Expiration D ate Plan of Treatment Planned Activity Planned Date Details Comments Future Appointment 2020-10-21 13:50:00 Mitra Mahmood [facility]; [address], [place] [address] Social History Smoking Status Start Date Stop Date Never Smoker Vital Signs Vital Name Observation Time Observation Value Comments WEIGHT 2020-09-17 14:31:00 60 kg HEIGHT 2020-09-17 14:31:00 167.491502 cm HEIGHT 2020-09-10 09:34:00 167.380467 cm WEIGHT 2020-09-10 09:34:00 61.750307 kg BP Diastolic 2020-09-09 00:00:00 79 mm[Hg] Height 2020-09-09 00:00:00 66 [in_i] BMI (Body Mass Index) 2020-09-09 00:00:00 22 kg/m2 BP Systolic 2020-09-09 00:00:00 121 mm[Hg] Body Weight 2020-09-09 00:00:00 136 [lb_av] Hospital Discharge Instructions 1. Ventral incisional hernia hernia: care instructions Discussion Note: None recorded.
[2020-10-10] MEDS ORDERED: NORMAL SALINE 1000 ML 1,000 ML IV ONE (03:55)
[2020-10-10] MEDS ORDERED: KETOROLAC TROMETHAMINE INJ/PF 30 MG/1 ML SDV IV ONE (03:55)
[2020-10-10] MEDS ORDERED: DIPHENHYDRAMINE HCL 50 MG/ML VIAL IV ONE (03:56)
[2020-10-10] MEDS ORDERED: METOCLOPRAMIDE HCL INJ/PF 10 MG/2 ML SDV IV ONE (03:56)
[2020-10-10] MEDS ORDERED: ONDANSETRON HCL INJ/PF 4 MG/2 ML SDV IV ONE (03:56)
--- NOTE | 2020-10-10 04:03 | ER Document Report ---
ED General - General Chief Complaint: Abdominal Pain Stated Complaint: BODY PAIN Time Seen by Provider: 10/10/20 03:32 Primary Care Provider: BAHMAN DIAZ FNP [Primary Care Provider] - Follow up as needed TRAVEL OUTSIDE OF THE [place] IN LAST 30 DAYS: No - HPI Notes: Patient is a 25-year-old female who presents emergency department for evaluation of headache pain, abdominal pain, and just feeling poorly in general. She was seen here in the emergency department 5 days ago, diagnosed with C. difficile colitis. She is taking antibiotics, decided to take a trip to [place]. While at [place] she still felt poorly so she went to the ER there. She was changed to vancomycin. She states she has been taking that. Now she feels like she may be dehydrated. She has a headache, states she just feels poorly everywhere. She states she had a fever today of 102. She denies any cough or shortness of breath. She states she has been taking her medications as prescrib ed. She has had nausea with emesis but none in the last 24 hours. The patient states she is had at least 2 liquid bowel movements an hour for the last 24 hours. She also complains of pain in her legs, but she states that the pain is "over my arteries, which is normal for me." - Related Data Allergies/Adverse Reactions: codeine Allergy (Verified 08/10/20 15:39) lavender (Lavandula angustifolia) Allergy (Verified 08/10/20 15:39) morphine Allergy (Verified 08/10/20 15:39) peanut Allergy (Verified 08/10/20 15:39) tramadol Allergy (Verified 08/10/20 15:39) ibuprofen Adverse Reaction (Verified 08/10/20 15:39) Home Medications: vancomycin. zofran. metoprolol ER Past Medical History - General Information source: Patient - Social History Smoking Status: Never Smoker Chew tobacco use (# tins/day): No Frequency of alcohol use: None Drug Abuse: None Family History: Reviewed & Not Pertinent - Past Medical History Cardiac Medical History: Reports: Other - Tachycardia Denies: Hx Coronary Artery Disease, Hx Heart Attack, Hx Hypertension Pulmonary Medical History: Denies: Hx Asthma, Hx Bronchitis, Hx COPD, Hx Pneumonia Neurological Medical History: Denies: Hx Cerebrovascular Accident, Hx Seizures Renal/ Medical History: Reports: Hx Kidney Stones, Hx Ovarian Cysts Musculoskeletal Medical History: Denies Hx Arthritis Skin Medical History: Reports Other - In 7 days to be C. difficile but he will Past Surgical History: Reports: Hx Adenoidectomy, Hx Cholecystectomy, Hx Herniorrhaphy, Hx Kidney (Renal Surgery), Hx Tonsillectomy Review of Systems - Review of Systems Constitutional: See HPI EENT: No symptoms reported Cardiovascular: No symptoms reported Respiratory: No symptoms reported Gastrointestinal: See HPI Genitourinary: No symptoms reported Female Genitourinary: No symptoms reported Musculoskeletal: See HPI Skin: No symptoms reported Neurological/Psychological: No symptoms reported Physical Exam - Vital signs Vitals: Temp Pulse Resp BP Pulse Ox 98.5 F 98 16 113/77 100 10/10/20 01:41 10/10/20 01:41 10/10/20 01:41 10/10/20 01:41 10/10/20 01:41 - Notes Notes: This is a 25-year-old female who appears her stated age, no acute distress. Vital signs reviewed, please refer to chart. Head is normocephalic, atraumatic. Pupils equal round, reactive to light. Neck is supple without meningismus. Heart is regular rate and rhythm. Lungs are clear to auscultation bilaterally. Inspection of the abdomen yields Steri-Strips in place over healing surgical lacerations in the periumbilical region. Abdomen is soft, diffusely tender without rebound or guarding, normoactive bowel sounds throughout. Extremities without cyanosis, clubbing. Posterior calves are nontender. Peripheral pulses are equal. Skin is warm and dry. Patient is awake, alert, neurological exam is nonfocal. Course - Re-evaluation Re-evalutation: 10/10/20 04:02 Patient presents emergency department for evaluation. She is complaining primarily of pain in her head, associated nausea, diffuse abdominal pain. Laboratory investigations are ordered. We will give the patient fluids, treat her with a traditional migraine cocktail of Toradol, Reglan, Benadryl, and additional Zofran, which the patient specifically requested. At this time she is stable, we will continue to monitor. 10/10/20 05:13 Patient stated that she could not take Toradol either, she decided not to take this. She did get Reglan, Benadryl, fluids, Zofran. During the course of her stay she stated that her was called out to work and she would have to leave to go home and take care of that the children. She left before laboratory investigations were completed, so decision was made to have the patient sign out AGAINST MEDICAL ADVICE. I was unsure of any significant electrolyte abnormalities, urine infections, or other problems. The patient understood this and decided to leave AGAINST MEDICAL ADVICE. She did fill out paperwork. She was told that if at any time she changes her mind she can return immediately to the ER for further evaluation. She voiced understanding was discharged. - Vital Signs Vital signs: Temp Pulse Resp BP Pulse Ox 98.5 F 98 16 113/77 100 10/10/20 01:41 10/10/20 01:41 10/10/20 01:41 10/10/20 01:41 10/10/20 01:41 - Laboratory Results Result Diagrams: 10/10/20 04:20 10/10/20 04:20 Laboratory Results Interpreted: 10/10/20 10/10/20 10/10/20 04:20 04:20 04:40 RBC 5.30 H Calcium 10.4 H Total Protein 9.0 H Albumin 5.3 H Urine Protein 30 H Urine Blood LARGE H Ur Leukocyte Esterase MODERATE H Critical Laboratory Results Reviewed: No Critical Results - Radiology Results Critical Radiology Results Reviewed: No Critical Results Discharge - Discharge Clinical Impression: Clostridium difficile colitis, Generalized abdominal pain Headache Qualifiers: Headache chronicity pattern: acute headache Intractability: not intractable Condition: Stable Disposition: AGAINST MEDICAL ADVICE Instructions: Abdominal Pain ([facility]), C. (Clostridium) Difficile Infection ([facility]), Headache ([facility]) Additional Instructions: You have elected to leave AGAINST MEDICAL ADVICE, as your work-up has not been completed. Please follow-up with your primary care provider. If your symptoms worsen, return immediately to the emergency department for evaluation. Referrals: BAHMAN DIAZ FNP [Primary Care Provider] - Follow up as needed
[2020-10-10 04:30] LABS: ABSOLUTE BASOPHILS # (AUTO) 0.1 10^3/uL (0.0-0.2); ABSOLUTE EOSINOPHILS # (AUTO) 0.1 10^3/uL (0.0-0.6); ABSOLUTE LYMPHOCYTES (AUTO) 2.8 10^3/uL (0.5-4.7); ABSOLUTE MONOCYTES (AUTO) 0.6 10^3/uL (0.1-1.4); ABSOLUTE NEUT (AUTO) 5.9 10^3/uL (1.7-8.2); BASOPHILS % (AUTO) 1.1 % (0-2); EOSINOPHILS % (AUTO) 1.1 % (0-6); HEMATOCRIT 44.4 % (36.0-47.0); HEMOGLOBIN 15.4 g/dL (12.0-15.5); LYMPHOCYTES % (AUTO) 29.5 % (13-45); MEAN CORPUSCULAR HGB CONC 34.6 g/dL (32.0-36.0); MEAN CORPUSCULAR VOLUME 84 fl (80-97); MONOCYTES % (AUTO) 6.7 % (3-13); PLATELET COUNT 412 10^3/uL (150-450); RED CELL DISTRIBUTION WIDTH 13.6 % (11.5-14.0); SEGMENTED NEUTROPHILS % (AUTO) 61.6 % (42-78); TOTAL CELLS COUNTED % (AUTO) 100 %; WHITE BLOOD COUNT 9.5 10^3/uL (4.0-10.5)
[2020-10-10 04:49] LABS: ALBUMIN 5.3 g/dL (3.5-5.0); ALKALINE PHOSPHATASE 120 U/L (38-126); ANION GAP 10 (5-19); ASPARTATE AMINO TRANSFERASE 19 U/L (14-36); BILIRUBIN,DIRECT 0.2 mg/dL (0.0-0.4); BILIRUBIN,TOTAL 0.4 mg/dL (0.2-1.3); BLOOD UREA NITROGEN 10 mg/dL (7-20); CALCIUM 10.4 mg/dL (8.4-10.2); CARBON DIOXIDE 26 mmol/L (22-30); CHLORIDE 106 mmol/L (98-107); GLUCOSE 93 mg/dL (75-110); POTASSIUM 4.6 mmol/L (3.6-5.0)
[2020-10-10 05:11] LABS: APPEARANCE,URINE CLOUDY; BILIRUBIN,URINE NEGATIVE (NEGATIVE); COLOR,URINE YELLOW; GLUCOSE, URINE NEGATIVE (NEGATIVE); KETONES,URINE NEGATIVE (NEGATIVE); LEUKOCYTE ESTERASE,URINE MODERATE (NEGATIVE); NITRITE,URINE NEGATIVE (NEGATIVE); PROTEIN,URINE 30 mg/dL (NEGATIVE); URINE SPECIFIC GRAVITY 1.019; UROBILINOGEN,URINE NEGATIVE mg/dL (<2.0)
[2020-10-10 05:24] VITALS: BP 110/69
[2020-10-10 09:07] LABS: C DIFFICILE GDH POSITIVE (NEGATIVE)
== END 2020-10-10 05:00 | disposition left against medical advice (07) ==
LOC: ER 01:06
DX: A04.72 Enterocolitis due to Clostridium difficile, not specified as recurrent (principal); R10.84 Generalized abdominal pain; R51.9 Headache, unspecified; Z88.6 Allergy status to analgesic agent
CPT/HCPCS: 99284; 96361; 96374; 96375; 36415; 83690; 85025; 80053; 81001; 87493 ×2; 87324; 87449; J1200; J2765; J2405; J7030

== ENCOUNTER 2020-10-15 19:05 | Emergency (ER) | payer OTHER ==
--- NOTE | 2020-10-15 19:24 | ER Document Report ---
ED Medical Screen (RME) - General Chief Complaint: Abdominal Pain Stated Complaint: ABDOMINAL PAIN RIGHT SIDE Time Seen by Provider: 10/15/20 19:21 Primary Care Provider: BAHMAN DIAZ FNP [Primary Care Provider] - Follow up as needed Mode of Arrival: Wheelchair Information source: Patient Notes: HPI; 25-year-old female presents to the emergency room complaining of sudden onset of sharp stabbing right lower quadrant pain that started earlier today. Patient states she was seen here 2 weeks ago was diagnosed with C. difficile, colitis, right kidney stone, appendicolith. States she finished her medications as directed and started having pain today. States she had one leftover oxycodone which she took earlier today with minimal relief. She complains of nausea but no vomiting. No fevers. No urinary symptoms. 3 months and just started her first menstrual cycle since delivery 3 days ago. Denies any COVID-19 exposure PE: Alert and oriented x3. Lungs: Clear to auscultation without rales, rhonchi, wheezes. Heart: Tachycardic without murmurs, rubs, gallops. I have greeted and performed a rapid initial assessment of this patient. A com prehensive ED assessment and evaluation of the patient, analysis of test results and completion of the medical decision making process will be conducted by additional ED providers. I have specifically instructed the patient or family members with the patient to immediately return to any nursing staff should anything change in the patient's condition or with their chief complaint. TRAVEL OUTSIDE OF THE [place] IN LAST 30 DAYS: No - Related Data Allergies/Adverse Reactions: codeine Allergy (Verified 08/10/20 15:39) lavender (Lavandula angustifolia) Allergy (Verified 08/10/20 15:39) morphine Allergy (Verified 08/10/20 15:39) peanut Allergy (Verified 08/10/20 15:39) tramadol Allergy (Verified 08/10/20 15:39) ibuprofen Adverse Reaction (Verified 08/10/20 15:39) Past Medical History - Past Medical History Cardiac Medical History: Denies: Hx Coronary Artery Disease, Hx Heart Attack, Hx Hypertension Pulmonary Medical History: Denies: Hx Asthma, Hx Bronchitis, Hx COPD, Hx Pneumonia Neurological Medical History: Denies: Hx Cerebrovascular Accident, Hx Seizures Renal/ Medical History: Reports: Hx Kidney Stones, Hx Ovarian Cysts Musculoskeltal Medical History: Denies Hx Arthritis Past Surgical History: Reports: Hx Adenoidectomy, Hx Cholecystectomy, Hx Herniorrhaphy, Hx Kidney (Renal Surgery), Hx Tonsillectomy Physical Exam - Vital signs Vitals: Temp Pulse BP Pulse Ox 97.7 F 85 103/59 L 100 10/15/20 19:18 10/15/20 19:18 10/15/20 19:18 10/15/20 19:18 Course - Vital Signs Vital signs: Temp Pulse Resp BP Pulse Ox 97.7 F 85 103/59 L 100 10/15/20 19:18 10/15/20 19:18 10/15/20 19:18 10/15/20 19:18 Doctor's Discharge - Discharge Referrals: BAHMAN DIAZ FNP [Primary Care Provider] - Follow up as needed
[2020-10-15] MEDS ORDERED: ACETAMINOPHEN 325 MG TABLET PO ONE (19:27)
[2020-10-15] MEDS ORDERED: ONDANSETRON 4 MG TAB.RAPDIS PO ONE (19:27)
[2020-10-15 20:07] LABS: APPEARANCE,URINE CLEAR; BILIRUBIN,URINE NEGATIVE (NEGATIVE); COLOR,URINE YELLOW; GLUCOSE, URINE NEGATIVE (NEGATIVE); KETONES,URINE NEGATIVE (NEGATIVE); LEUKOCYTE ESTERASE,URINE NEGATIVE (NEGATIVE); NITRITE,URINE NEGATIVE (NEGATIVE); PROTEIN,URINE NEGATIVE (NEGATIVE); URINE SPECIFIC GRAVITY 1.023; UROBILINOGEN,URINE NEGATIVE mg/dL (<2.0)
--- NOTE | 2020-10-15 20:15 | ER Document Report ---
ED GI/ - General Chief Complaint: Abdominal Pain Stated Complaint: ABDOMINAL PAIN RIGHT SIDE Time Seen by Provider: 10/15/20 19:21 Primary Care Provider: BAHMAN DIAZ FNP [Primary Care Provider] - Follow up as needed Mode of Arrival: Wheelchair Notes: ED Medical Screen (Blanca hernandez) - General Chief Complaint: Abdominal Pain Stated Complaint: ABDOMINAL PAIN RIGHT SIDE Time Seen by Provider: 10/15/20 19:21 Primary Care Provider: BAHMAN DIAZ FNP [Primary Care Provider] - Follow up as needed Mode of Arrival: Wheelchair Information source: Patient Notes: HPI; 25-year-old female presents to the emergency room complaining of sudden onset of sharp stabbing right lower quadrant pain that started earlier today. Patient states she was seen here 2 weeks ago was diagnosed with C. difficile, colitis, right kidney stone, appendicolith. States she finished her medications as directed and started having pain today. States she had one leftover oxycodone which she took earlier today with minimal relief. She complains of nausea but no vomiting. No fevers. No urinary symptoms. 3 months and just started her first menstrual cycle since delivery 3 days ago. Denies any COVID-19 exposure PE: Alert and oriented x3. Lungs: Clear to auscultation without rales, rhonchi, wheezes. Heart: Tachycardic without murmurs, rubs, gallops. MY NOTES 25-year-old female arrived by POV. Her is . She advised by noon time she was having intense spasmic right lower quadrant abdominal pain. Patient reports 3 months ago she had a induced delivery of a normal spontaneous vaginal delivery baby boy. Since this time she has had a stent placed because of a kidney stone and 2 weeks ago had a revision for adhesions by Dr. Adams. Also several weeks ago she had a stent removed by Dr. Wilson which was calcified as well. Shortly after her abdominal revision she had colitis with C. difficile. Patient is now in mild distress. Cabrera ZHANG is attempting IV placement on this patient. Patient reports she had to have a exploratory lap because of severe right lower quadrant pain while she was . She also had to have a umbilical hernia talk on her last surgery. She is supposed to get a recheck on her C. difficile in the next week and if does not respond well has to have a fecal transplant. TRAVEL OUTSIDE OF THE [place] IN LAST 30 DAYS: No - Related Data Allergies/Adverse Reactions: codeine Allergy (Verified 10/15/20 22:03) lavender (Lavandula angustifolia) Allergy (Verified 10/15/20 22:03) morphine Allergy (Verified 10/15/20 22:03) peanut Allergy (Verified 10/15/20 22:03) tramadol Allergy (Verified 10/15/20 22:03) ibuprofen Adverse Reaction (Verified 10/15/20 22:03) Past Medical History - General Information source: Patient - Social History Smoking Status: Never Smoker Cigarette use (# per day): No Chew tobacco use (# tins/day): No Smoking Education Provided: No Frequency of alcohol use: None Drug Abuse: None Lives with: Family Family History: Reviewed & Not Pertinent Patient has suicidal ideation: No Patient has homicidal ideation: No - Protrusion - Past Medical History Cardiac Medical History: Denies: Hx Coronary Artery Disease, Hx Heart Attack, Hx Hypertension Pulmonary Medical History: Denies: Hx Asthma, Hx Bronchitis, Hx COPD, Hx Pneumonia Neurological Medical History: Denies: Hx Cerebrovascular Accident, Hx Seizures Renal/ Medical History: Reports: Hx Kidney Stones, Hx Ovarian Cysts Musculoskeletal Medical History: Denies Hx Arthritis Past Surgical History: Reports: Hx Adenoidectomy, Hx Cholecystectomy, Hx Herniorrhaphy, Hx Kidney (Renal Surgery), Hx Tonsillectomy Review of Systems - Review of Systems Constitutional: See HPI, Weakness, Recent illness EENT: No symptoms reported Cardiovascular: No symptoms reported Respiratory: No symptoms reported Gastrointestinal: See HPI, Abdominal pain Genitourinary: No symptoms reported Female Genitourinary: No symptoms reported Musculoskeletal: No symptoms reported Skin: No symptoms reported Hematologic/Lymphatic: No symptoms reported Neurological/Psychological: No symptoms reported -: Yes All other systems reviewed and negative Physical Exam - Vital signs Vitals: Temp Pulse BP Pulse Ox 97.7 F 85 103/59 L 100 10/15/20 19:18 10/15/20 19:18 10/15/20 19:18 10/15/20 19:18 Interpretation: Hypotensive - General General appearance: Appears well, Alert - HEENT Head: Normocephalic, Atraumatic Eyes: Normal Pupils: PERRL - Respiratory Respiratory status: No respiratory distress Chest status: Nontender Breath sounds: Normal Chest palpation: Normal - Cardiovascular Rhythm: Regular Heart sounds: Normal auscultation Murmur: No - Abdominal Inspection: Normal Distension: No distension Bowel sounds: Hypoactive Tenderness: Tender - Right lower quadrant pain on palpation positive psoas positive obturator sign Organomegaly: No organomegaly - Rectal Hemorrhoids: Other - Deferred - Genitourinary Bimanuel exam: Other - Deferred - Back Back: Normal, Nontender - Extremities General upper extremity: Normal inspection, Nontender, Normal color, Normal ROM, Normal temperature General lower extremity: Normal inspection, Nontender, Normal color, Normal ROM, Normal temperature, Normal weight bearing. No: Stalin's sign - Neurological Neuro grossly intact: Yes Cognition: Normal Orientation: AAOx4 Ruth Coma Scale Eye Opening: Spontaneous Jean Coma Scale Verbal: Oriented Jean Coma Scale Motor: Obeys Commands Jean Coma Scale Total: 15 Speech: Normal Motor strength normal: LUE, RUE, LLE, RLE Sensory: Normal - Psychological Associated symptoms: Normal affect, Normal mood - Skin Skin Temperature: Warm Skin Moisture: Dry Skin Color: Normal Course - Vital Signs Vital signs: Temp Pulse Resp BP Pulse Ox 97.7 F 85 103/59 L 100 10/15/20 19:18 10/15/20 19:18 10/15/20 19:18 10/15/20 19:18 - Laboratory Results Laboratory Results Interpreted: 10/15/20 19:35 Urine Blood MODERATE H Critical Laboratory Results Reviewed: Yes Attending or Supervising Physician who Reviewed Labs: SINDY PAULINO JR - Radiology Results Critical Radiology Results Reviewed: Yes Attending or Supervising Physician who Reviewed Radiology: SINDY PAULINO JR Discharge - Discharge Clinical Impression: RLQ abdominal pain, Kidney stone on right side Condition: Stable Disposition: HOME, SELF-CARE Additional Instructions: Follow-up with urologist and with apparel designer. Return to ER for severe symptoms take medicines as directed encourage fluids. Also may make sure lactobacillus with pectin with a yogurt of your choice. Hopefully this yogurt is a cultured yogurt with some lactobacillus in it already. Prescriptions: Lactobacillus Acidophilus/Pect [Acidophilus-Pectin Capsule] 1 each PO DAILY PRN 5 Days #1 bottle PRN Reason: Diarrhea Levofloxacin [Levaquin 500 mg Tablet] 500 mg PO DAILY 5 Days #5 tablet Chlorzoxazone [Parafon Forte Dsc 500 Mg Tablet] 500 mg PO BID PRN #20 tablet PRN Reason: Pain Scale Of 1 Referrals: BAHMAN DIAZ FNP [Primary Care Provider] - Follow up as needed
[2020-10-15] MEDS ORDERED: HYDROMORPHONE HCL INJ/PF 2 MG/ML AMPULE IM ONE ×2 (20:54→23:10)
[2020-10-15] MEDS ORDERED: PROMETHAZINE HCL INJ 25 MG/1 ML VIAL IM ONE (21:27)
--- NOTE | 2020-10-15 22:56 | RADIOLOGY REPORT (SQ) ---
EXAM DESCRIPTION: CT ABD/PELVIS NO ORAL OR IV CLINICAL HISTORY: 25 years Female, right lower quadrant pain/kidney stone recently COMPARISON: CT abdomen and pelvis 10/05/2020 TECHNIQUE: Axial images of the abdomen and pelvis were performed without the use of intravenous contrast, with sagittal and coronal reformatted images. This exam was performed according to our departmental dose-optimization program which includes use of Automated Exposure Control, adjustment of the mA and/or kV according to patient size and/or use of iterative reconstruction technique. FINDINGS: There is a small stone in the right kidney, unchanged, as compared with the prior CT scan. No hydronephrosis. No evidence of appendicitis. No evidence of bowel obstruction. A left ovarian cyst has resolved, since the prior scan. There is no significant radiographic abnormality of the liver, spleen, pancreas, adrenal glands or left kidney. There is a tiny scar at the posterior right lung base. IMPRESSION: Small right renal stone without hydronephrosis.
[2020-10-15] MEDS ORDERED: PROCHLORPERAZINE EDISYLATE INJ 10 MG/2 ML VIAL IM ONE (23:12)
[2020-10-15 23:45] VITALS: BP 108/64
== END 2020-10-15 23:44 | disposition home or self-care (01) ==
LOC: ER 19:05
DX: N20.0 Calculus of kidney (principal); R10.31 Right lower quadrant pain; R11.0 Nausea; Z88.6 Allergy status to analgesic agent
CPT/HCPCS: 99285; 96372; 81001; 74176; S0119; J1170; J0780; 36415; 80053; 84703; 85025